=== PATIENT | female | born 1965 | race Caucasian/White ===

== ENCOUNTER 2016-09-20 06:29 | Day surgery (SDC) | payer MEDICARE, OTHER ==
[2016-09-16 18:22] VITALS: BMI 19.7
[2016-09-20 07:06] VITALS: RESP 16; TEMP 96.6
[2016-09-20] MEDS ORDERED: LACTATED RINGERS 1,000 ML IV ONE (07:15)
[2016-09-20] MEDS ORDERED: LIDOCAINE 1% 20 ML VIAL (10MG/ML) FOR IV START SQ ONE (07:24)
[2016-09-20] MEDS ORDERED: fentaNYL (PF) 50 MCG/ML 2 ML AMP ONE (07:40)
[2016-09-20] MEDS ORDERED: BUPIVACAINE (PF) 0.5% 30 ML VIAL ONE (07:40)
[2016-09-20] MEDS ORDERED: DEXAMETHASONE SOD PHOS (MDV) 100 MG/10 ML VIAL ONE (07:40)
[2016-09-20] MEDS ORDERED: MIDAZOLAM 2 MG/2 ML VIAL ONE (07:40)
[2016-09-20] MEDS ORDERED: IV FLUID CONTINUATION 400 ML IV ONE (08:29)
--- NOTE | 2016-09-20 08:35 | FL ---
Fluoroscopy INDICATION: Pain FINDINGS: Fluoroscopy time: 16 seconds. Images obtained: 8. IMPRESSIONS: 1. Documentation of fluoroscopy.
[2016-09-20] MEDS ORDERED: KETOROLAC 30 MG/ML 1 ML VIAL IVP STA (08:58)
[2016-09-20] MEDS ORDERED: KETOROLAC 30 MG/ML 1 ML VIAL IVP ONE (09:00)
[2016-09-20 09:22] VITALS: BP 105/72; PULSE 62
--- NOTE | 2016-09-20 09:29 | P.PCN ---
Date of Procedure: 09/20/16 Anesthesia: MAC Surgeon: Loyd Salazar Pathology: none sent Condition: stable Disposition: PACU Description of Procedure: PREOPERATIVE DIAGNOSIS: Cervical spondylosis without myelopathy, cervicogenic headache. POSTOPERATIVE DIAGNOSIS: same PROCEDURES: Diagnostic bilateral C2, C3, C4 medial branch, and third occipital nerve steroid injection, with fluoroscopic guidance ANESTHESIA: Local with 1% lidocaine; IV sedation with Versed. EBL: Minimal PROCEDURE INDICATION: This is a patient with neck pain and headaches secondary to cervical arthropathy unresponsive to more conservative treatments. PROCEDURE DESCRIPTION / TECHNIQUE: The patient was seen and identified in the preoperative area. Risks, benefits, complications, and alternatives were discussed with the patient (including but not limited to incomplete pain relief , bleeding, infection, nerve damage, and allergies to medications), the patient agreed to proceed with the procedure and signed the consent after all questions were answered. IV was started. Vital signs remained stable throughout the procedure. Patient was taken to the OR and time out was completed. The patient was placed in the prone position on the procedure table. A pillow was placed under the patients chest to increase the cervical interlaminar space. The cervical area was prepped and draped in the usual sterile fashion. Critical pause was taken. Vital signs were closely monitored during the procedure. Conscious sedation was used during the procedure to decrease patients anxiety. Using cross-table lateral fluoroscopy, the centroid of the trapezoid of right C2 , was identified, marked, and localized with 1% lidocaine. Subsequently, a 25 G spinal needle was advanced guided by fluoroscopy to the centroid of the trapezoid of C2. Needle tip position was confirmed at the centroid of the trapezoids of C2 with anteroposterior fluoroscopy. Subsequently, 1 ml of a combination of 40 mg Kenalog and 7 ml of preservative-free Bupivacaine 0.5% was injected after negative aspiration for blood and CSF. Needle was then removed intact the same procedure was repeated at the right C2/C3 facet joint (for third occipital nerve) C3, and C4 levels. COMPLICATIONS: No acute complications. COMMENTS: DISPOSITION / PLANS: The patient was placed in a supine position and transferred to the recovery area in a stable condition for observation and was discharged from the recovery room after meeting discharge criteria. Home discharge instructions given to the patient by the staff. The patient was reexamined prior to discharge. The patient will schedule a follow up in the clinic in 2-4 weeks. As noted at last visit, patient has two new masses on MRI scan from June 2016 and has had worsening weakness in her arms and numbness/tingling. I told her that we will not do any further procedures for her until these masses are evaluated by a neurologist or a neurosurgeon. I gave her a referral to see Dr. Altamirano for evaluation. In addition, patient presented today with pounding headache, "migraine" as described by her. Neck pain significantly improved after procedure (>50% relief ) but patient has frontal headache, rating 10/10 today. Patient seen and examined by myself. This is unlikely to be a postdural puncture headache, as 1 ) it does not worsen or change with position changes, 2) epidural injection was not done today, and 3) cervical medial branch block was done from lateral approach; this is likely an exacerbation of patient's usual underlying headaches. Will give bolus of IV fluids and ketorolac. If patient requires further management of her headaches, I will instruct her to go to the emergency department for further treatment. Patient will follow up in four weeks for further evaluation.
== END 2016-09-20 10:00 | disposition home or self-care (01) ==
LOC: ORPAIN 06:29
PROVIDERS: ATTEND Anesthesiology
DX: M47.812 Spondylosis without myelopathy or radiculopathy, cervical region (principal); R51 Headache; Z91.012 Allergy to eggs; Z91.040 Latex allergy status; Z88.8 Allergy status to other drugs, medicaments and biological substances; Z91.048 Other nonmedicinal substance allergy status; Z91.09 Other allergy status, other than to drugs and biological substances; Z79.891 Long term (current) use of opiate analgesic; Z79.899 Other long term (current) drug therapy
CPT/HCPCS: 64490; 64491; 64492; J2250; J3010; J1885; J1100

== ENCOUNTER → 2016-10-11 | Outpatient (CLI) | payer MEDICARE, OTHER ==
[2016-10-11 12:28] VITALS: BP 123/77; PULSE 90; RESP 18; TEMP 98.5
--- NOTE | 2016-10-11 20:19 | P.PN ---
Subjective This is follow-up visit for this patient with a history of severe and chronic neck pain and headache, with done cervical epidural steroid injection, she had no benefit from it, and later on we didn't do diagnostic medial branch block cervical area C2/C3/C4, x1 and she reported that her pain before the injection was 8/10 dropped to 4/10 after the block, but it did not help her headache, she continued to have severe intractable headache mainly on the right side frontal headache, she denies any visual changes and she denies any change in the bowel movement or urination and she denies any motor or sensory deficit, intensity of the headache is interfering with her quality of life, and the headache is not related to the neck movements, and is currently on pain medications 1- [place] 10/325 every 6 hours when necessary 2-Valium 5 mg twice a day 3-Cymbalta 60 mg daily Patient denies any side effects of the medication, denies excessive drowsiness or sleepiness, denies suicidal ideation, and reports that the current pain medication is NOT helping To control the pain and improve activity of daily living Physical Examinations : 1-Constitutiona : Cooperative , not in acute distress . 2-HEENT : nech ; supple , no Lymphadenopathy , no Thyromegaly , normal thyroid size . eyes : no ptosis , no icterus, no photophobia . ENT : normal of hearing , normal oropharynx , no Thrush . 3- Respiratory : Chest clear to auscultations Bilaterally , no wheezing , no Rhonchi . 4- Cardiovascular : regular rate and rhythem , S1 , S2 , no S3 , no S4. 5- Gastrointestinal : abdomen soft no tenderness , bowel sounds positive all four quadrents , no organomegally . 6- Genitourinary : Defferred . 7- neurologic : Cranial nerve II to XII intact , no focal neurological deffecit . 8-psychatric : alert , oriented X 3 , appropriate affect , intact judgment and insight . 9-Lymphatic : no Lymphadenopathy . 10- musculoskeltal : exams of the cervical spine = motor strength normal bilateral upper extremities facet loading test cervical area positive. Normal sensation in the upper extremities exams of the Lumber spine = motor strength lower extremities ,thigh and legs .5/5 deep tendon reflexes : normal Knee Jerk , normal ankle Jerk . 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, patient had no benefit from the cervical epidural steroid injection, she had 50% Improvement of her neck pain after the diagnostic medial branch block cervical area, patient already scheduled to have another Diagnostic medial branch block cervical , but she had no benefit from the block regarding her headache, and she continued to have Severe frontal headache, continuous headache, I will refer patient to a neurologist for evaluation regarding the headache, and patient already scheduled to have diagnostic medial Branch block cervical area, and if it' s positive then we will do the radiofrequency ablation of the medial branch cervical area , And patient should continue her current pain medication [place] 10/325 every 6 hours when necessary for pain, and she should Continue Cymbalta, and continue Valium 5 mg twice a day, (she is getting prescriptions from Dr Amezquita ) Objective - Vital Signs Vital signs: Vital Signs Temp 98.5 F 10/11/16 12:19 Pulse 90 10/11/16 12:19 Resp 18 10/11/16 12:19 BP 123/77 10/11/16 12:19 Pulse Ox 98 10/11/16 12:19 Intake & Output 10/11/16 10/11/16 10/12/16 06:59 18:59 06:59 Weight 55.338 kg
== END | disposition home or self-care (01) ==
LOC: PNWHC3 12:03
PROVIDERS: ATTEND Specialist
DX: G89.29 Other chronic pain (principal); M47.812 Spondylosis without myelopathy or radiculopathy, cervical region; M50.31 Other cervical disc degeneration, high cervical region; R51 Headache; Z79.891 Long term (current) use of opiate analgesic; Z79.899 Other long term (current) drug therapy
CPT/HCPCS: 99211

== ENCOUNTER 2016-10-28 08:46 | Day surgery (SDC) | payer MEDICARE, OTHER ==
[2016-10-28] MEDS ORDERED: LACTATED RINGERS 1,000 ML IV SCH (09:06)
[2016-10-28 09:16] VITALS: TEMP 98
[2016-10-28] MEDS ORDERED: LIDOCAINE 1% 20 ML VIAL (10MG/ML) FOR IV START INTRADERMA ONE (09:26)
[2016-10-28] MEDS ORDERED: MIDAZOLAM 2 MG/2 ML VIAL ONE (10:02)
[2016-10-28] MEDS ORDERED: fentaNYL (PF) 50 MCG/ML 2 ML AMP ONE (10:02)
[2016-10-28] MEDS ORDERED: TRIAMCINOLONE ACETONIDE 40 MG/ML 1 ML VIAL ONE (10:02)
[2016-10-28] MEDS ORDERED: BUPIVACAINE (PF) 0.5% 30 ML VIAL ONE (10:02)
[2016-10-28] MEDS ORDERED: IV FLUID CONTINUATION 1,000 ML IV ONE (10:34)
--- NOTE | 2016-10-28 10:36 | P.PCN ---
Date of Procedure: 10/28/16 Procedure(s) Performed: PREOPERATIVE DIAGNOSIS: 1-Cervical Spondylosis with Facet Arthropathy.without myelopathy. 2-cervicogenic headache. POSTOPERATIVE DIAGNOSIS: Same as preoperative diagnoses. PROCEDURES: Diagnostic Bilateral C2, C3, C4 medial branch blocks, with fluoroscopic guidance. Diagnostic bilateral cervical occipital nerve block under fluoroscopy guidance ANESTHESIA: Local with 1% lidocaine6 ml ; IV sedation with Versed.2 mg and fentanyl 100 g EBL: Minimal PROCEDURE INDICATION: The patient with neck pain secondary to cervical arthropathy unresponsive to more conservative treatments. PROCEDURE DESCRIPTION / TECHNIQUE: The patient was seen and identified in the preoperative area. Risks, benefits, complications, and alternatives were discussed with the patient, the patient agreed to proceed with the procedure and signed the consent. IV was started. Vital signs remained stable throughout the procedure. Patient was taken to the OR and time out was completed. The patient was placed in the prone position on the procedure table. A pillow was placed under the patients chest to increase the cervical interlaminar space. The cervical area was prepped and draped in the usual sterile fashion. Critical pause was taken. Vital signs were closely monitored during the procedure. Conscious sedation was used during the procedure to decrease patients anxiety. Using cross-table lateral fluoroscopy, the centroid of the trapezoid of right C2 , C3, C4 was identified, marked, and localized with 1% lidocaine 1 ml at each level for skin and Sub Q infiltrations . Subsequently, a 22 G 4 spinal needle was advanced guided by fluoroscopy to the centroid of the trapezoid of RightC2, C3, C4 , [place] tip position was confirmed at the centroid of the trapezoids of Right C2 ,C3 , C4 with anteroposterior fluoroscopy. Subsequently, 1,5 ml of preservative-free Bupivacaine 0.5% mixed with Kenalog 40 mg and half ml of the mixture was injected after negative aspiration for blood and CSF. [place] was then removed intact the same procedure was repeated at the left C2 ,C3, C4 levels. then to do the right third occipital nerve block done by placing a 22-gauge Uchitel medial and the middle of the facet joint that is formed between the C2 and C3 vertebra, on the right side and needle placement confirmed with AP and lateral view then after appropriate needle placement confirmed, Marcaine 0.5% half mL injected after negative aspiration, and there was no paresthesia during the injection , the needle removed and the same procedure was repeated for the left side to do the left third occipital nerve COMPLICATIONS: No acute complications. COMMENTS: DISPOSITION / PLANS: The patient was placed in a supine position and transferred to the recovery area in a stable condition for observation and was discharged from the recovery room after meeting discharge criteria. Home discharge instructions given to the patient by the staff. The patient was reexamined prior to discharge. The patient will schedule a follow up in the clinic in 2-4 weeks.
--- NOTE | 2016-10-28 10:43 | FL ---
EXAMINATION TYPE: FL guided pain mgmt statistic DATE OF EXAM: 10/28/2016 10:32 AM FLUOROSCOPY Fluoroscopy time of 11 seconds was used during bilateral cervical facet blocks. 6 image/s document/s the procedure.
[2016-10-28 10:57] VITALS: BP 108/72; PULSE 61; RESP 18
== END 2016-10-28 11:14 | disposition home or self-care (01) ==
LOC: ORPAIN 08:46
PROVIDERS: ATTEND Specialist
DX: M47.812 Spondylosis without myelopathy or radiculopathy, cervical region (principal); M46.92 Unspecified inflammatory spondylopathy, cervical region; R51 Headache
CPT/HCPCS: 64450; 64490; 64491; 64492; 99152; J2250; J3301; J3010

== ENCOUNTER → 2016-11-21 | Outpatient (CLI) | payer MEDICARE, OTHER ==
--- NOTE | 2016-11-22 11:11 | MM ---
Reason for exam: screening (asymptomatic). Last mammogram was performed 5 years and 6 months ago. History: Family history of premenopausal breast cancer in sister and breast cancer in relative. Implants in both breasts, 2010. Physical Findings: A clinical breast exam by your physician is recommended on an annual basis and results should be correlated with mammographic findings. MG 3D Screen Mammo Imp/Cad Bilateral CC, MLO, and ID view(s) were taken. Prior study comparison: July 22, 2011, right breast ultrasound. April 14, 2010, mammogram, performed at [facility]. The breast tissue is extremely dense which could obscure a lesion on mammography. Stable diffuse bilateral calcifications. Bilateral saline implants. No significant changes when compared with prior studies. ASSESSMENT: Benign, BI-RAD 2 RECOMMENDATION: Routine screening mammogram of both breasts in 1 year.
== END | disposition home or self-care (01) ==
LOC: RADMAMWWP 12:54
PROVIDERS: ATTEND Internal Medicine
DX: Z12.31 Encounter for screening mammogram for malignant neoplasm of breast (principal); Z80.3 Family history of malignant neoplasm of breast
CPT/HCPCS: 77063; G0202

== ENCOUNTER → 2016-11-28 | Outpatient (CLI) | payer MEDICARE, OTHER ==
[2016-11-28 12:46] VITALS: BP 92/58; PULSE 74; RESP 16; TEMP 98.2
--- NOTE | 2016-11-28 13:05 | P.PN ---
Progress Note - Text This is a 51-year-old female with history of neck and lower back pain. The patient had surgery on the neck with posterior cervical fusion in 2004. She still feels pain in her neck and also headache. She had cervical medial branch block for levels C2, C3 and C3 before which gave her 50% of pain relief that lasted for couple of weeks as she stated. She does have tenderness on both sides of her neck but her pain is worse on the left side. The patient uses to 4 pills a day of [place] and she gets that from Dr. Flores. She also has increasing lower back pain. I will schedule the patient to have another the frequency ablation on the left side of her neck L4 medial branches at C2, C3, C4 and third occipital nerve. The procedure was explained to the patient and her questions were answered.
== END ==
LOC: PNWHC3 11:49
PROVIDERS: ATTEND Anesthesiology
DX: M54.5 Low back pain (principal); M54.2 Cervicalgia
CPT/HCPCS: 99211

== ENCOUNTER 2017-01-05 11:28 | Day surgery (SDC) | payer MEDICARE, OTHER ==
[2017-01-04 12:06] VITALS: BMI 19.3
[~2017-01-05 11:28] MED LIST: LACTATED RINGERS 1,000 ML IV SCH
[2017-01-05 11:37] VITALS: TEMP 98.4
[2017-01-05] MEDS ORDERED: LIDOCAINE 1% 20 ML VIAL (10MG/ML) FOR IV START INTRADERMA ONE (11:43)
[2017-01-05] MEDS ORDERED: MIDAZOLAM 2 MG/2 ML VIAL ONE (12:15)
[2017-01-05] MEDS ORDERED: TRIAMCINOLONE ACETONIDE 40 MG/ML 1 ML VIAL ONE (12:15)
[2017-01-05] MEDS ORDERED: BUPIVACAINE (PF) 0.5% 30 ML VIAL ONE (12:15)
[2017-01-05] MEDS ORDERED: fentaNYL (PF) 50 MCG/ML 2 ML AMP ONE (12:15)
--- NOTE | 2017-01-05 12:58 | P.PCN ---
Date of Procedure: 01/05/17 Procedure(s) Performed: PREOPERATIVE DIAGNOSIS: 1-Cervical spondylosis with Facet Arthropathy without myelopathy. 2-cervicogenic headache. POSTOPERATIVE DIAGNOSIS: Same as preoperative diagnosis. PROCEDURES: Radiofrequency thermocoagulation, Left C2 ,C3, C4, medial branch with Fluroscopy [place] Radiofrequency thermal coagulation of the left side third occipital nerve under fluoroscopy guidance ANESTHESIA: Local with 1% lidocaine 4 ml ; IV sedation with fentanyl 100 mcg and Versed. 2 mg EBL: Minimal PROCEDURE INDICATION: The patient with neck pain secondary to cervical arthropathy who had more than 50% relief of her pain with previous diagnostic cervical medial branch block. PROCEDURE DESCRIPTION / TECHNIQUE: The patient was seen and identified in the preoperative area. Risks, benefits, complications, and alternatives were discussed with the patient, the patient agreed to proceed with the procedure and signed the consent. IV was started. Vital signs remained stable throughout the procedure. Patient was taken to the OR and time out was completed. The patient was placed in the prone position on the procedure table. A pillow was placed under the patients chest to increase the cervical interlaminar space. The cervical area was prepped and draped in the usual sterile fashion. Critical pause was taken. Vital signs were closely monitored during the procedure. Conscious sedation was used during the procedure to decrease patients anxiety. Using cross-table lateral fluoroscopy, the centroid of the trapezoid of the left C2 ,C3, C4, were identified, marked, and localized with 1% lidocaine. Subsequently, a 20 guage 50-mm radiofrequency cannula with a 10-mm active tip was advanced guided by fluoroscopy to the centroid of the trapezoid of Left C2 ,C3, C4, . Needle tip position was confirmed at the centroid of the trapezoids of Left C2 , C3, C4, with anteroposterior fluoroscopy. Each site then underwent sensory testing at 50 Hz and 0 to 1 volt and motor testing at 2 Hz and 0 to 3 volt with local stimulation, but no radicular symptoms down the arm. Thereafter the Left C2 , C3, C4, sites underwent radiofrequency thermocoagulation at 80 degrees celsius for 90 seconds after injecting 0.5 ml of PF lidocaine 1%. After thermocoagulation, 1 ml of the block solution containing Kenalog 40 mg and 3 mL of preservative-free normal saline was injected at the Left C2 , C3, C4, levels after negative aspiration of CSF and blood and with no paresthesias. Cannulas were retracted while injecting lidocaine 1% until the needle is out. And after that he did the radiofrequency thermocoagulation for the left third occipital nerve by placing a 20-gauge 50 mm radiofrequency cannula at the junction of the facet joint that is from between the C2 and C3 on the left side , and placement confirmed with AP and lateral view, and after appropriate needle placement confirmed we did the sensory stimulation at 50 Hz and motor stimulation at 3 volts, was negative for any contractions in the upper extremities, was only localized contractions in the multifidus muscles, the radiofrequency done at 80C for 90 seconds, after the radiofrequency done needle removed, cleaned was cleaned and the Band-Aid applied COMPLICATIONS: No acute complications DISPOSITION / PLANS: The patient was placed in a supine position and transferred to the recovery area in a stable condition for observation and was discharged from the recovery room after meeting discharge criteria. Home discharge instructions given to the patient by the staff. The patient was reexamined prior to discharge. The patient will schedule a follow up in the clinic in 2-4 weeks. We will do the radiofrequency on the right side,at the same levels mentioned above.
[2017-01-05] MEDS ORDERED: IV FLUID CONTINUATION 1,000 ML IV ONE (12:59)
[2017-01-05 13:02] VITALS: RESP 18
[2017-01-05 13:18] VITALS: BP 115/68; PULSE 67
--- NOTE | 2017-01-05 13:31 | FL ---
Fluoroscopy HISTORY: Pain 18 seconds fluoroscopy time supplied to the referring clinician. 4 intraoperative C-arm images docum ent the procedure. See dictated report from anesthesia.
== END 2017-01-05 13:30 | disposition home or self-care (01) ==
LOC: ORPAIN 11:28
PROVIDERS: ATTEND Specialist
DX: M47.812 Spondylosis without myelopathy or radiculopathy, cervical region (principal); M46.92 Unspecified inflammatory spondylopathy, cervical region; R51 Headache; Z88.6 Allergy status to analgesic agent; Z88.1 Allergy status to other antibiotic agents; Z91.040 Latex allergy status; Z88.5 Allergy status to narcotic agent; Z91.018 Allergy to other foods; Z91.09 Other allergy status, other than to drugs and biological substances
CPT/HCPCS: 64640; 64633; 64634 ×2; 99152; 99153; J2250; J3301; J3010

== ENCOUNTER → 2017-04-18 | Outpatient (CLI) | payer MEDICARE, OTHER ==
--- NOTE | 2017-04-18 07:59 | US ---
EXAMINATION TYPE: US abdomen limited DATE OF EXAM: 04/18/2017 COMPARISON: 01/08/2016 CLINICAL HISTORY: Rt upper Quad Pain R10.11. RUQ pain and N/V x 1 year EXAM MEASUREMENTS: Liver Length: 19.1 cm Gallbladder Wall: 0.2 cm CBD: 0.4 cm Right Kidney: 11.4 x 4.7 x 5.1 cm Pancreas: wnl Liver: enlarged at 19.1cm, possibly due to presence of More's lobe Gallbladder: wnl Evidence for sonographic Ferreira's sign: yes CBD: wnl Right Kidney: wnl Scanned RUQ inferior to ribs palpable area per patient: appears wnl at this time IMPRESSION: Hepatic More's lobe. No significant abnormality appreciated.
== END | disposition home or self-care (01) ==
LOC: RADUSWWP 07:03
PROVIDERS: ATTEND Family Medicine
DX: R10.11 Right upper quadrant pain (principal); Q44.7 Other congenital malformations of liver
CPT/HCPCS: 76705

== ENCOUNTER 2017-04-25 16:36 | Emergency (ER) | payer MEDICARE, OTHER ==
[2017-04-25 17:07] VITALS: RESP 18
[2017-04-25] MEDS ORDERED: HYDROmorphone 1 MG/ML 1 ML SYRINGE IVP STA (18:21)
[2017-04-25] MEDS ORDERED: SODIUM CHLORIDE 0.9% 1,000 ML IV STA (18:21)
[2017-04-25] MEDS ORDERED: ONDANSETRON 4 MG/2 ML VIAL IVP STA (18:21)
--- NOTE | 2017-04-25 18:32 | ED ---
General Adult HPI - General Chief complaint: Abdominal Pain Stated complaint: Abd Pain Time Seen by Provider: 04/25/17 18:17 Source: patient, family, RN notes reviewed Mode of arrival: wheelchair Limitations: physical limitation - History of Present Illness Initial comments: Patient 51-year-old female who presents emergency room today with a chief complaint of increased right lower quadrant pain that started approximately 2 hours ago. She does admit to pain locally to the right lower quadrant. Denies any radiation. Patient admits to some nausea. She states never had pain similar. States different from kidney stones that she has had in the past. Denies any other complaints. Patient denies any recent fever, chills, shortness of breath, chest pain, back pain, abdominal pain, nausea or vomiting, numbness or tingling, dysuria or hematuria, constipation or diarrhea, headaches or visual changes, or any other complaints. - Related Data Home Medications Medication Instructions Recorded Confirmed Hydrocodone/Acetaminophen [[place] 1 tab PO QID 04/25/14 04/25/17 10-325] traZODone HCL [traZODone] 150 mg PO HS 04/25/14 04/25/17 Diazepam [Valium] 5 mg PO BID PRN 04/25/17 04/25/17 Ergocalciferol (Vitamin D2) 50,000 unit PO MO 04/25/17 04/25/17 [Vitamin D2] Sucralfate [Carafate] 1 gm PO AC-TID 04/25/17 04/25/17 hydrOXYzine HCL [Atarax] 25 mg PO Q6H PRN 04/25/17 04/25/17 Previous Rx's Medication Instructions Recorded Dicyclomine [Bentyl] 20 mg PO QID #20 tablet 04/25/17 Allergies Allergy/AdvReac Type Severity Reaction Status Date / Time adhesive Allergy Rash/Hives Verified 04/25/17 17:07 bacitracin Allergy Rash/Hives Verified 04/25/17 17:07 [From Neosporin ([id number])] bacitracin zinc Allergy Rash/Hives Verified 04/25/17 17:07 [From Neosporin ([id number])] egg Allergy Unknown Verified 04/25/17 17:07 latex Allergy Rash/Hives Verified 04/25/17 17:07 neomycin sulfate Allergy Rash/Hives Verified 04/25/17 17:07 [From Neosporin ([id number])] polymyxin B Allergy Rash/Hives Verified 04/25/17 17:07 [From Neosporin ([id number])] aspirin AdvReac Vomiting Verified 04/25/17 19:15 banana AdvReac Vomiting Verified 04/25/17 17:07 oxycodone HCl [From Percocet] AdvReac Vomiting Verified 04/25/17 17:07 paper tape Allergy Rash/Hives Uncoded 04/25/17 19:15 Review of Systems ROS Statement: Those systems with pertinent positive or pertinent negative responses have been documented in the HPI. ROS Other: All systems not noted in ROS Statement are negative. Past Medical History Past Medical History: Asthma, COPD, Fibromyalgia, Osteoarthritis (OA), Pneumonia , Skin Disorder Additional Past Medical History / Comment(s): HX KIDNEY STONES, ECZEMA, hiatal hernia, chronic constipation, hypoglycemia, History of Any Multi-Drug Resistant Organisms: None Reported Past Surgical History: Back Surgery, Breast Surgery, Section, Hysterectomy, Orthopedic Surgery Additional Past Surgical History / Comment(s): LAMINECTOMY C-5,6,7. LEFT KNEE ARTHROSCOPY. BREAST IMPLANTS. lithotripsy. COLONOSCOPY, EGD. TYSHAWN BREAST BIOPSIES, colonoscopy, oral surgery, MS Past Anesthesia/Blood Transfusion Reactions: Family History of Problems w/ Anesthesia, Motion Sickness, Postoperative Nausea & Vomiting (PONV) Additional Past Anesthesia/Blood Transfusion Reaction / Comment(s): sepitic after colonoscopy- HAD VOMITING OF BILE AFTER COLONOSCOPY. MOTHER HAS MEMORY ISSUES AFTER ANESTHESIA-TEMPORARY. Past Psychological History: Anxiety, Depression Smoking Status: Current every day smoker Past Alcohol Use History: None Reported Past Drug Use History: None Reported - Past Family History Mother Family Medical History: Cancer Sister(s) Family Medical History: Cancer Mother Sister(s) Family Medical History: Cancer General Exam - General Exam Comments Initial Comments: General: The patient is awake and alert, in mild distress. Eye: Pupils are equal, round and reactive to light, extra-ocular movements are intact. No nystagmus. There is normal conjunctiva bilaterally. No signs of icterus. Ears, nose, mouth and throat: There are moist mucous membranes and no oral lesions. Neck: The neck is supple, there is no tenderness or JVD. Cardiovascular: There is a regular rate and rhythm. No murmur, rub or gallop is appreciated. Respiratory: Lungs are clear to auscultation, respirations are non-labored, breath sounds are equal. No wheezes, stridor, rales, or rhonchi. Gastrointestinal: Normal appearance abdomen. Normal bowel sounds. Abdomen soft on palpation. Patient does have tenderness to right lower quadrant. No rebound tenderness. No guarding. No CVA tenderness. Musculoskeletal: Normal ROM, no tenderness. Strength 5/5. Sensation intact. Pulses equal bilaterally 2+. Neurological: A&O x 3. CN II-XII intact, There are no obvious motor or sensory deficits. Coordination appears grossly intact. Speech is normal. Skin: Skin is warm and dry and no rashes or lesions are noted. Psychiatric: Cooperative, appropriate mood & affect, normal judgment. Limitations: physical limitation Course Vital Signs 04/25/17 04/25/17 17:03 20:15 Temperature 98.5 F 98.1 F Pulse Rate 81 70 Respiratory 18 18 Rate Blood Pressure 114/63 99/58 O2 Sat by Pulse 98 99 Oximetry Medical Decision Making - Medical Decision Making Patient reexamined at this time shows no signs of stress is resting comfortably. CT the abdomen and pelvis is negative for any acute abnormalities. Labs are unremarkable. Patient does admit on further history that she is had similar pain back and forth for the last year and has seen family doctor and also GI. States she's had scopes and ultrasounds performed. At this time she is advised to follow-up with the GI. She has had a hysterectomy with right ovary removed. Patient will be discharged home with prescription for Bentyl for her symptoms. - Lab Data Result diagrams: 04/25/17 18:17 04/25/17 18:17 Lab Results 04/25/17 04/25/17 04/25/17 Range/Units 18:17 18:17 18:17 WBC 9.2 (3.8-10.6) k/uL RBC 4.62 (3.80-5.40) m/uL Hgb 14.5 (11.4-16.0) gm/dL Hct 42.1 (34.0-46.0) % MCV 91.2 (80.0-100.0) fL MCH 31.5 (25.0-35.0) pg MCHC 34.5 (31.0-37.0) g/dL RDW 13.3 (11.5-15.5) % Plt Count 321 (150-450) k/uL Neutrophils % 44 % Lymphocytes % 45 % Monocytes % 6 % Eosinophils % 2 % Basophils % 1 % Neutrophils # 4.0 (1.3-7.7) k/uL Lymphocytes # 4.1 (1.0-4.8) k/uL Monocytes # 0.5 (0-1.0) k/uL Eosinophils # 0.2 (0-0.7) k/uL Basophils # 0.1 (0-0.2) k/uL Sodium 142 (137-145) mmol/L Potassium 4.2 (3.5-5.1) mmol/L Chloride 107 (98-107) mmol/L Carbon Dioxide 24 (22-30) mmol/L Anion Gap 11 mmol/L BUN 10 (7-17) mg/dL Creatinine 0.70 (0.52-1.04) mg/dL Est GFR (MDRD) Af Amer >60 (>60 ml/min/1.73 sqM) Est GFR (MDRD) Non-Af >60 (>60 ml/min/1.73 sqM) Glucose 82 (74-99) mg/dL Plasma Lactic Acid Que (0.7-2.0) mmol/L Calcium 9.3 (8.4-10.2) mg/dL Total Bilirubin 0.3 (0.2-1.3) mg/dL AST 17 (14-36) U/L ALT 34 (9-52) U/L Alkaline Phosphatase 111 (38-126) U/L Total Protein 6.6 (6.3-8.2) g/dL Albumin 4.1 (3.5-5.0) g/dL Amylase <30 L (30-110) U/L Lipase 44 (23-300) U/L Urine Color Light Yellow Urine Appearance Clear (Clear) Urine pH 5.5 (5.0-8.0) Ur Specific [place] 1.004 (1.001-1.035) Urine Protein Negative (Negative) Urine Glucose (UA) Negative (Negative) Urine Ketones Negative (Negative) Urine Blood Negative (Negative) Urine Nitrite Negative (Negative) Urine Bilirubin Negative (Negative) Urine Urobilinogen <2.0 (<2.0) mg/dL Ur Leukocyte Esterase Negative (Negative) 04/25/17 Range/Units 18:44 WBC (3.8-10.6) k/uL RBC (3.80-5.40) m/uL Hgb (11.4-16.0) gm/dL Hct (34.0-46.0) % MCV (80.0-100.0) fL MCH (25.0-35.0) pg MCHC (31.0-37.0) g/dL RDW (11.5-15.5) % Plt Count (150-450) k/uL Neutrophils % % Lymphocytes % % Monocytes % % Eosinophils % % Basophils % % Neutrophils # (1.3-7.7) k/uL Lymphocytes # (1.0-4.8) k/uL Monocytes # (0-1.0) k/uL Eosinophils # (0-0.7) k/uL Basophils # (0-0.2) k/uL Sodium (137-145) mmol/L Potassium (3.5-5.1) mmol/L Chloride (98-107) mmol/L Carbon Dioxide (22-30) mmol/L Anion Gap mmol/L BUN (7-17) mg/dL Creatinine (0.52-1.04) mg/dL Est GFR (MDRD) Af Amer (>60 ml/min/1.73 sqM) Est GFR (MDRD) Non-Af (>60 ml/min/1.73 sqM) Glucose (74-99) mg/dL Plasma Lactic Acid Que 0.7 (0.7-2.0) mmol/L Calcium (8.4-10.2) mg/dL Total Bilirubin (0.2-1.3) mg/dL AST (14-36) U/L ALT (9-52) U/L Alkaline Phosphatase (38-126) U/L Total Protein (6.3-8.2) g/dL Albumin (3.5-5.0) g/dL Amylase (30-110) U/L Lipase (23-300) U/L Urine Color Urine Appearance (Clear) Urine pH (5.0-8.0) Ur Specific [place] (1.001-1.035) Urine Protein (Negative) Urine Glucose (UA) (Negative) Urine Ketones (Negative) Urine Blood (Negative) Urine Nitrite (Negative) Urine Bilirubin (Negative) Urine Urobilinogen (<2.0) mg/dL Ur Leukocyte Esterase (Negative) Disposition Clinical Impression: Abdominal pain Disposition: TRANSFER TO PSYCH HOSP/UNIT Condition: Good Instructions: Abdominal Pain (ED) Additional Instructions: Please use medication as discussed. Please follow-up with GI/family doctor in the next 2 days of symptoms have not improved. Please return to emergency room if the symptoms increase or worsen or for any other concerns. Prescriptions: Dicyclomine [Bentyl] 20 mg PO QID #20 tablet Referrals: Christy Baum MD [Primary Care Provider] - 1-2 days Simon Judd MD [STAFF PHYSICIAN] - 1-2 days Time of Disposition: 20:18
[2017-04-25 18:57] LABS: Appearance,Urine Clear (Clear); Basophils # (A) 0.1 k/uL (0-0.2); Basophils % (A) 1 %; Bilirubin,Urine Negative (Negative); CH 30.8; CHCM 33.9; Eosinophils # (A) 0.2 k/uL (0-0.7); Eosinophils % (A) 2 %; Glucose,Urine (UA) Negative (Negative); HCT 42.1 % (34.0-46.0); HDW 2.51; HGB 14.5 gm/dL (11.4-16.0); Ketones,Urine Negative (Negative); Leukocyte Esterase,Urine Negative (Negative); Luc # (Auto) 0.24; Luc % (Auto) 3; Lymphocytes # (A) 4.1 k/uL (1.0-4.8); Lymphocytes % (A) 45 %; MCH 31.5 pg (25.0-35.0); MCHC 34.5 g/dL (31.0-37.0); MCV 91.2 fL (80.0-100.0); Mean Platelet Volume 6.9; Monocytes # (A) 0.5 k/uL (0-1.0); Monocytes % (A) 6 %; Neutrophils % (A) 44 %; Nitrite,Urine Negative (Negative); PH, Urine 5.5 (5.0-8.0); Protein,Urine Negative (Negative); RBC 4.62 m/uL (3.80-5.40); RDW 13.3 % (11.5-15.5); Specific Gravity,Urine 1.004 (1.001-1.035); UA Billing (MACRO vs. MICRO) CHEM; Urobilinogen,Urine <2.0 mg/dL (<2.0); WBC 9.2 k/uL (3.8-10.6); WBC (Perox) 9.46
[2017-04-25] MEDS ORDERED: RX INFO: IV CONTRAST WAS GIVEN 1 EACH MISC MISCELLANE PRN (18:57)
[2017-04-25 19:05] LABS: ALT 34 U/L (9-52); AST 17 U/L (14-36); Alkaline Phosphatase 111 U/L (38-126); Amylase <30 U/L (30-110); Anion Gap 11 mmol/L; Blood Urea Nitrogen 10 mg/dL (7-17); Calcium 9.3 mg/dL (8.4-10.2); Carbon Dioxide 24 mmol/L (22-30); Chloride 107 mmol/L (98-107); Glucose 82 mg/dL (74-99); Non-African American GFR(MDRD) >60 (>60 ml/min/1.73 sqM); Potassium 4.2 mmol/L (3.5-5.1); Sodium 142 mmol/L (137-145); Total Bilirubin 0.3 mg/dL (0.2-1.3); Total Protein 6.6 g/dL (6.3-8.2)
--- NOTE | 2017-04-25 19:11 | XR ---
EXAMINATION TYPE: XR KUB DATE OF EXAM: 04/25/2017 COMPARISON: February 04, 2016 HISTORY: Pain TECHNIQUE: 2 upright views over the abdomen and pelvis FINDINGS: The bowel gas pattern is normal. There is no pneumatosis. No pneumoperitoneum. The skeletal structures and soft tissues are unremarkable. No evident mass or mass effect. The visualized lung bases and pleural spaces are negative. IMPRESSION: NO ACUTE RADIOGRAPHIC PROCESS.
--- NOTE | 2017-04-25 19:59 | CT ---
EXAMINATION TYPE: CT abdomen pelvis w con DATE OF EXAM: 04/25/2017 COMPARISON: CT February 04, 2016 HISTORY: RLQ pain with nausea CT DLP: 776 mGycm. Automated exposure control for dose reduction was used. TECHNIQUE: Helical acquisition of images was performed from the lung bases through the pelvis. CONTRAST: Performed without Oral Contrast and with IV Contrast, patient injected with 100 mL of Omnip aque 300. FINDINGS: LUNG BASES: No significant abnormality is appreciated. LIVER/GB: No significant abnormality is appreciated. PANCREAS: No significant abnormality is seen. SPLEEN: No significant abnormality is seen. ADRENALS: No significant abnormality is seen. KIDNEYS: No significant abnormality is seen. FREE AIR: No free air is visualized. RETROPERITONEAL ADENOPATHY: None visualized REPRODUCTIVE ORGANS: No significant abnormality is seen URINARY BLADDER: No significant abnormality is seen. PELVIC ADENOPATHY: None visualized. OSSEOUS STRUCTURES: No significant abnormality is seen. BOWEL: No significant abnormality is seen. OTHER: Skeletal structures are unremarkable. IMPRESSION: NO ACUTE PROCESS. SPECIFICALLY, NO CT FINDINGS TO CORRELATE WITH THE PATIENT'S SYMPTOMS.
[2017-04-25] MEDS ORDERED: DICYCLOMINE 10 MG/ML 2 ML AMP IM STA (20:17)
[2017-04-25 20:18] VITALS: BP 99/58; PULSE 70; TEMP 98.1
== END 2017-04-25 20:37 ==
LOC: EC 16:36
DX: R10.31 Right lower quadrant pain (principal); R11.0 Nausea; F32.9 Major depressive disorder, single episode, unspecified; F41.9 Anxiety disorder, unspecified; F17.200 Nicotine dependence, unspecified, uncomplicated; Z79.891 Long term (current) use of opiate analgesic; Z79.899 Other long term (current) drug therapy; Z88.1 Allergy status to other antibiotic agents; Z88.5 Allergy status to narcotic agent; Z88.6 Allergy status to analgesic agent; Z91.012 Allergy to eggs; Z91.018 Allergy to other foods; Z91.040 Latex allergy status; Z91.09 Other allergy status, other than to drugs and biological substances; Z90.710 Acquired absence of both cervix and uterus
CPT/HCPCS: 99285; 96374; 96375; 96361 ×2; 96372; 36415; 80053; 82150; 83605; 83690; 85025; 81003; 74000; 74177; J0500; J2405; J1170; Q9967

== ENCOUNTER → 2017-09-19 | Outpatient (CLI) | payer MEDICARE, OTHER ==
--- NOTE | 2017-09-20 09:26 | MR ---
EXAMINATION TYPE: MR brain/cspine wo DATE OF EXAM: 09/19/2017 COMPARISON: Cervical spine 06/21/16 and Brain 07/07/15 HISTORY: 52 year old female headaches, dizzy, weakness, numbness TECHNIQUE: Multiplanar, multisequence images of the brain and brainstem were acquired without IV con trast. Diffusion weighted imaging is performed. Subsequent multiplanar, multisequence images of the cervical spine without contrast. FINDINGS: BRAIN: No evidence for acute infarction, hemorrhage, mass, mass effect, midline shift, herniation, effacemen t of basal cisterns, or extra-axial fluid collection. The ventricles and sulci are age-appropriate. Major intracranial flow voids are intact. T2/FLAIR weighted sequences show stable mild to moderate scattered burden of bright white matter foci primarily in the subcortical and deep white matter, numbering approximately 10 in the left cerebral hemisphere and 6 in the right cerebral hemisphere. 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 Midline structures otherwise demonstrate normal morphology. The cr aniocervical junction is normal. Moderate mucosal thickening ethmoid air cells and left maxillary sinus and mild within the right maxi llary sinus. Globes appear intact. Minimal trapped fluid in the inferior right mastoid air cells. CERVICAL SPINE: The craniocervical junction, predental space widening, or prevertebral soft tissue swelling. Redemonstrated mild multilevel degenerative disc disease characterized by disc desiccation, mild disc space narrowing, and disc osteophyte complex formation, particularly in the mid to lower cervical sp ine from C5 through C7 levels. Corresponding ligamentum flavum thickening at these levels with scattered facet and uncovertebral ld nt arthropathy. Mild heterogeneous marrow signal without suspicious bone marrow replacement. There are redemonstrated round foci of intermediate signal intensity at the left C5-C6 and C6-C7 neur al foramen, unchanged from 06/21/2016. These measure 1.0 and 0.7 cm, respectively, refer to sagittal image 5. Exact etiology remains uncertain. At C2-C3, mild facet arthropathy without canal or foraminal stenosis. At C3-C4, mild facet arthropathy without canal or foraminal stenosis. At C4-C5, minimal broad-based disc osteophyte complex with mild uncovertebral joint and facet degener ative change. No significant canal or foraminal stenosis. At C5-C6, there is disc osteophyte complex with left greater than right facet and uncovertebral joint degenerative change. There is overall minimal narrowing of the spinal canal and mild narrowing of th e right neuroforamen. There may be a moderate or severe left neuroforaminal stenosis, similar to prio r exam with the rounded intermediate signal intensity lesion here. At C6/C7, discussed by complex with contiguous uncovertebral joint spurring. Facet arthropathy is als o present with ligamentum flavum thickening. Overall mild narrowing of the spinal canal. There may be slight ventral cord contact but no flattening of the cord. At least moderate left neuroforaminal zan nosis with redemonstrated round area of intermediate signal. At C7-T1, no spinal canal or neuroforaminal stenosis. Some patchy artifact projects over the lower cervical cord. No abnormal T2 cord signal abnormality wh en correlating to the axial series. No prevertebral or paravertebral soft tissue abnormality seen. COMBINED IMPRESSION: BRAIN: 1. Chronic T2 bright white matter changes as described above. Stable mild to moderate scattered burde n. No acute intracranial abnormality seen. 2. 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 3. Mild to moderate chronic schwartz sinus disease, worsened in the left maxillary sinus. CERVICAL SPINE: 1. The 2 round lesions interposed at the left C5-C6 and C6-C7 neural foramen (measuring 1.0 and 0.7 c m, respectively) remain unchanged from 06/21/2016. Differential considerations include extruded/seque stered disc fragments and small nerve sheath tumors. Hypertrophic polyneuropathy considered less like ly given that only 2 levels on one side are involved. These may contribute to left-sided neural jenelle inal narrowing at their respective levels. 2. Mild to moderate degenerative disc disease especially from C5 through C7 levels contributing to mi nimal to mild narrowing of the spinal canal. No canal compromise or cord compression. 3. Scattered mild facet and uncovertebral joint arthropathy also noted. Aside from the 2 levels on th e left side mentioned above, no significant neuroforaminal stenosis.
== END | disposition home or self-care (01) ==
LOC: RADMRIMAIN 15:04
PROVIDERS: ATTEND Nurse Practitioner Family
DX: M48.02 Spinal stenosis, cervical region (principal); M50.322 Other cervical disc degeneration at C5-C6 level; M46.92 Unspecified inflammatory spondylopathy, cervical region; E34.8 Other specified endocrine disorders; R90.82 White matter disease, unspecified; G43.909 Migraine, unspecified, not intractable, without status migrainosus
CPT/HCPCS: 70551; 72141

== ENCOUNTER → 2017-09-20 | Outpatient (CLI) | payer MEDICARE, OTHER ==
--- NOTE | 2017-09-20 17:53 | MR ---
EXAMINATION TYPE: MR shoulder RT wo con DATE OF EXAM: 09/20/2017 COMPARISON: NONE HISTORY: Right Shoulder pain with limited ROM x2 years TECHNIQUE: Multiplanar, multisequence imaging of the right shoulder is performed without contrast. FINDINGS: Rotator Cuff: Abnormal attenuation of the rotator cuff tendon is present, there is increased signal a t the level of the insertion of the supraspinatus tendon compatible with partial full-thickness tear of the rotator cuff. Acromioclavicular Joint: Hypertrophic changes present causing mass effect on the musculotendinous cynthia ction of supraspinatus. Glenohumeral Joint: Intact Labrum: The labrum shows some increased signal present at its anterior inferior margin, in close prox imity to this there is a cluster of grapes and vermiform type appearance of fluid signal extending in feriorly along the bony labrum measuring approximately 2.2 x 0.5 x 0.6 cm.. Biceps Tendon: The long head of biceps is in normal location within bicipital groove. Bone marrow signal: Small pseudocysts present within the posterior humeral head. Other: There is fluid signal present in the subacromial subdeltoid bursa. IMPRESSION: Findings suggestive of a partial full-thickness tear of the rotator cuff. Correlate for impingement. Para labral cyst is suspected, there may be a tear of the anterior-inferior glenoid labrum
== END | disposition home or self-care (01) ==
LOC: RADMRIMAIN 15:06
PROVIDERS: ATTEND Nurse Practitioner Family
DX: M25.511 Pain in right shoulder (principal)

== ENCOUNTER → 2017-10-31 | Outpatient (CLI) | payer MEDICARE, OTHER ==
--- NOTE | 2017-10-31 17:19 | XR ---
EXAMINATION TYPE: XR cervical spine comp DATE OF EXAM: 10/31/2017 COMPARISON: 12/09/2014 HISTORY: Pain TECHNIQUE: 4 views FINDINGS: Exam was performed with neutral flexion and extension lateral views. There is narrowing of the C5-6 disc space with spurring of the endplates. The flexion and extension v iews show no evidence of instability. There are no cervical ribs. IMPRESSION: Spondylosis at C5-6. No fracture. No evidence of instability. No change compared to old e xam.
--- NOTE | 2017-10-31 17:40 | XR ---
EXAMINATION TYPE: XR lumbar spine with bend/flex DATE OF EXAM: 10/31/2017 COMPARISON: 12/09/2014 HISTORY: Low back pain TECHNIQUE: 5 views FINDINGS: The lumbar vertebra have normal spacing and alignment. Posterior elements are intact. Flexi on and extension views show no sign of instability. Sacroiliac joints appear normal. IMPRESSION: No evidence of instability. No fracture. No change compared to old exam.
== END | disposition home or self-care (01) ==
LOC: RADXRMAIN 16:35
PROVIDERS: ATTEND Nurse Practitioner Family
DX: M47.812 Spondylosis without myelopathy or radiculopathy, cervical region (principal); M47.816 Spondylosis without myelopathy or radiculopathy, lumbar region
CPT/HCPCS: 72050; 72114

== ENCOUNTER → 2018-01-19 | Outpatient (CLI) | payer MEDICARE, OTHER ==
--- NOTE | 2018-01-19 16:10 | CT ---
EXAMINATION TYPE: CT cervical spine wo con DATE OF EXAM: 01/19/2018 COMPARISON: NONE HISTORY: Patient complains of chronic neck pain with radiation to the right arm primarily, with infre quent radiation to the left arm. CT DLP: 179.7 mGycm Automated exposure control for dose reduction was used. TECHNIQUE: CT scan of the cervical spine is obtained without contrast, axial images are obtained, sagittal and c oronal reformatted images are also reviewed. FINDINGS: C5-6 shows loss of disc height, there is spondylosis, lateral extension of endplate disc complex caus ing bilateral foraminal encroachment, some anterolateral mass effect on the thecal sac towards the le ft of midline. No significant spinal stenosis. C3-4 show some loss of disc height with minimal disc b ulge, no significant spinal stenosis. No other significant foraminal encroachment or disc herniation is evident. No other neural foraminal compromise. Cervical spine is visualized in its entirety from C1 through upper thoracic levels, demonstrates sati sfactory alignment without evidence of acute fracture or dislocation. Prevertebral soft tissue appea rs within normal limits. The C1-C2 articulation is within normal limits on the coronal images. IMPRESSION: There is no acute fracture or dislocation evident in the cervical spine. Degenerative disc disease.
== END | disposition home or self-care (01) ==
LOC: RADCTMAIN 15:04
PROVIDERS: ATTEND Neurological Surgery
DX: M50.30 Other cervical disc degeneration, unspecified cervical region (principal)
CPT/HCPCS: 72125

== ENCOUNTER → 2018-12-03 | Outpatient (CLI) | payer MEDICARE, OTHER ==
--- NOTE | 2018-12-05 08:56 | MM ---
Reason for exam: screening (asymptomatic). Last mammogram was performed 2 years ago. History: Patient is postmenopausal. Family history of premenopausal breast cancer in sister and breast cancer in paternal grandmother. Implants in both breasts, 2010. Physical Findings: A clinical breast exam by your physician is recommended on an annual basis and results should be correlated with mammographic findings. MG 3D Screen Mammo Imp/Cad Bilateral CC, MLO, and ID view(s) were taken. Prior study comparison: November 21, 2016, bilateral MG 3d screen mammo imp/cad. June 01, 2011, mammogram, performed at [facility]. The breast tissue is extremely dense which could obscure a lesion on mammography. Retropectoral saline implants. Diffuse bilateral punctate and some heterogeneous calcifications. No significant changes when compared with prior studies. ASSESSMENT: Benign, BI-RAD 2 RECOMMENDATION: Routine screening mammogram of both breasts in 1 year. Patient should continue monthly self breast exams. A negative report should not preclude additional follow up of suspicious palpable abnormalities.
== END | disposition home or self-care (01) ==
LOC: RADMAMWWP 09:40
PROVIDERS: ATTEND Family Medicine
DX: Z12.31 Encounter for screening mammogram for malignant neoplasm of breast (principal)
CPT/HCPCS: 77063; 77067

== ENCOUNTER → 2018-12-25 | Outpatient (CLI) | payer MEDICARE, OTHER ==
--- NOTE | 2018-12-25 09:54 | US ---
EXAMINATION TYPE: US abdomen complete DATE OF EXAM: 12/25/2018 COMPARISON: US & CT CLINICAL HISTORY: R10.9 right lower quadrant abdominal pain. Pt states right lateral ABD pain x 2 mon ths EXAM MEASUREMENTS: Liver Length: 15.8 cm Gallbladder Wall: 0.2 cm CBD: 0.5 cm Spleen: 6.7 cm Right Kidney: 10.1 x 4.3 x 4.6 cm Left Kidney: 9.4 x 5.8 x 4.6 cm Pancreas: wnl Liver: wnl Gallbladder: wnl Evidence for sonographic Ferreira's sign: No CBD: wnl Spleen: Difficult to visualize due to overlying bowel gas Right Kidney: wnl Left Kidney: No evidence of hydro, difficult to visualize due to overlying bowel gas Upper IVC: wnl Abd Aorta: wnl No abnormality visualized to account for pt's symptoms The liver is homogenous. The intrahepatic portion of the IVC and proximal abdominal aorta are within normal limits. There is no evidence of cholelithiasis. Common bile duct is unremarkable. The visu alized portions of the pancreas are homogenous. The spleen is unremarkable. Kidneys are symmetric a nd free of hydronephrosis. No renal lesions are seen. IMPRESSION: No distinct abnormality is appreciated.
== END | disposition home or self-care (01) ==
LOC: RADUSWWP 09:17
PROVIDERS: ATTEND Family Medicine
DX: R10.9 Unspecified abdominal pain (principal)
CPT/HCPCS: 76700

== ENCOUNTER 2018-12-29 16:45 | Emergency (ER) | payer MEDICARE, OTHER ==
[2018-12-29 16:52] VITALS: RESP 16
[2018-12-29] MEDS ORDERED: MORPHINE SULFATE 4 MG/ML SYRINGE IVP STA (17:13)
[2018-12-29] MEDS ORDERED: SODIUM CHLORIDE 0.9% 1,000 ML IV ONE (17:13)
[2018-12-29] MEDS ORDERED: KETOROLAC 30 MG/ML 1 ML VIAL IVP STA (17:13)
[2018-12-29] MEDS ORDERED: ONDANSETRON 4 MG/2 ML VIAL IVP STA (17:14)
--- NOTE | 2018-12-29 17:17 | ED ---
Abdominal Pain HPI - General Chief Complaint: Abdominal Pain Stated Complaint: Female Time Seen by Provider: 12/29/18 17:00 Source: patient, family Mode of arrival: wheelchair Limitations: no limitations - History of Present Illness Initial Comments: Patient is a 53-year-old female presents with the chief complaint of abdominal pain and rectal pain. Patient states it has been going on for 1 day. She states she developed constipation and things that she pushed too hard because her rectal pain. Patient cannot identify any other inciting incidences, there are no aggravating or alleviating factors. The patient says she takes stool softeners and has been having daily bowel movements. - Related Data Home Medications Medication Instructions Recorded Confirmed Hydrocodone/Acetaminophen [[place] 1 tab PO QID 04/25/14 04/25/17 10-325] traZODone HCL [traZODone] 150 mg PO HS 04/25/14 04/25/17 Diazepam [Valium] 5 mg PO BID PRN 04/25/17 04/25/17 Ergocalciferol (Vitamin D2) 50,000 unit PO MO 04/25/17 04/25/17 [Vitamin D2] Sucralfate [Carafate] 1 gm PO AC-TID 04/25/17 04/25/17 hydrOXYzine HCL [Atarax] 25 mg PO Q6H PRN 04/25/17 04/25/17 Previous Rx's Medication Instructions Recorded Dicyclomine [Bentyl] 20 mg PO QID #20 tablet 04/25/17 Hydrocortisone/Pramoxine 1 applic RECTAL TID #1 bottle 12/29/18 [Proctofoam-Hc 1%-1% Foam] Sennosides [Senokot] 8.6 mg PO DAILY #20 tablet 12/29/18 Allergies Allergy/AdvReac Type Severity Reaction Status Date / Time adhesive Allergy Rash/Hives Verified 12/29/18 16:52 bacitracin Allergy Rash/Hives Verified 12/29/18 16:52 [From Neosporin ([id number])] bacitracin zinc Allergy Rash/Hives Verified 12/29/18 16:52 [From Neosporin ([id number])] egg Allergy Unknown Verified 12/29/18 16:52 latex Allergy Rash/Hives Verified 12/29/18 16:52 neomycin sulfate Allergy Rash/Hives Verified 12/29/18 16:52 [From Neosporin ([id number])] polymyxin B Allergy Rash/Hives Verified 12/29/18 16:52 [From Neosporin ([id number])] aspirin AdvReac Vomiting Verified 12/29/18 16:52 banana AdvReac Vomiting Verified 12/29/18 16:52 oxycodone HCl [From Percocet] AdvReac Vomiting Verified 12/29/18 16:52 paper tape Allergy Rash/Hives Uncoded 12/29/18 16:52 Review of Systems ROS Statement: Those systems with pertinent positive or pertinent negative responses have been documented in the HPI. ROS Other: All systems not noted in ROS Statement are negative. Gastrointestinal: Reports: abdominal pain, nausea Past Medical History Past Medical History: Asthma, COPD, Fibromyalgia, Osteoarthritis (OA), Pneumonia, Skin Disorder Additional Past Medical History / Comment(s): HX KIDNEY STONES, ECZEMA, hiatal hernia, chronic constipation, hypoglycemia, History of Any Multi-Drug Resistant Organisms: None Reported Past Surgical History: Back Surgery, Breast Surgery, Section, Hysterectomy, Orthopedic Surgery Additional Past Surgical History / Comment(s): LAMINECTOMY C-5,6,7. LEFT KNEE ARTHROSCOPY. BREAST IMPLANTS. lithotripsy. COLONOSCOPY, EGD. TYSHAWN BREAST BIOPSIES, colonoscopy, oral surgery, MS Past Anesthesia/Blood Transfusion Reactions: Family History of Problems w/ Anesthesia, Motion Sickness, Postoperative Nausea & Vomiting (PONV) Additional Past Anesthesia/Blood Transfusion Reaction / Comment(s): sepitic after colonoscopy- HAD VOMITING OF BILE AFTER COLONOSCOPY. MOTHER HAS MEMORY ISSUES AFTER ANESTHESIA-TEMPORARY. Past Psychological History: Anxiety, Depression Smoking Status: Current every day smoker Past Alcohol Use History: None Reported Past Drug Use History: None Reported - Past Family History Mother Family Medical History: Cancer Sister(s) Family Medical History: Cancer Mother Sister(s) Family Medical History: Cancer General Exam Limitations: no limitations General appearance: alert, in no apparent distress Head exam: Present: atraumatic, normocephalic Eye exam: Present: normal appearance, EOMI Neck exam: Present: normal inspection Respiratory exam: Present: normal lung sounds bilaterally. Absent: respiratory distress, wheezes Cardiovascular Exam: Present: regular rate, normal rhythm GI/Abdominal exam: Present: soft, tenderness (Lower abdominal tenderness). Absent: distended Rectal exam: Present: normal rectal tone, heme (-) stool, hemorrhoids, tenderness. Absent: fecal impaction Extremities exam: Present: normal inspection Back exam: Present: normal inspection, other (Patient is a small midline incision from the C-spine from a laminectomy, appears well-healed) Neurological exam: Present: alert, oriented X3 Psychiatric exam: Present: normal affect, normal mood Skin exam: Present: warm, dry, intact Course Vital Signs 12/29/18 16:48 Temperature 98.2 F Pulse Rate 89 Respiratory 16 Rate Blood Pressure 131/81 O2 Sat by Pulse 98 Oximetry Medical Decision Making - Medical Decision Making Patient presents with a chief complaint of abdominal pain and rectal pain. On initial evaluation, vitals are stable, patient is in [id number] distress secondary to discomfort. Patient to be evaluated basic labs including liver profile and lipase, she'll be sent for a computed tomography scan of the abdomen and pelvis with IV contrast. Rectal exam shows nonthrombosed hemorrhoids, no bleeding, stool is grossly unremarkable. No fecal impaction. 6:54 PM 11 evaluation this patient is unremarkable, urinalysis shows no evidence of infection. Computed tomography scan of the abdomen and pelvis is grossly unremarkable, there is some bladder wall thickening which is new compared to previous examination however given urinalysis, not likely secondary to infection. Reevaluation, patient states that she is feeling somewhat improved. Metastatic she was instructed to continue to use a stool softeners however decrease the use of laxatives. She was prescribed Anusol, instructed to follow up with primary care 1-2 days. Patient was given a referral to gastroenterology given her chronic constipation. Patient was instructed to return to the emergency department for reevaluation if symptoms worsen or change. - Lab Data Result diagrams: 12/29/18 17:25 12/29/18 17:25 Lab Results 12/29/18 12/29/18 12/29/18 Range/Units 17:25 17:25 18:21 WBC 7.2 (3.8-10.6) k/uL RBC 4.18 (3.80-5.40) m/uL Hgb 12.9 (11.4-16.0) gm/dL Hct 38.4 (34.0-46.0) % MCV 91.8 (80.0-100.0) fL MCH 31.0 (25.0-35.0) pg MCHC 33.7 (31.0-37.0) g/dL RDW 14.1 (11.5-15.5) % Plt Count 283 (150-450) k/uL Neutrophils % 45 % Lymphocytes % 44 % Monocytes % 5 % Eosinophils % 3 % Basophils % 1 % Neutrophils # 3.2 (1.3-7.7) k/uL Lymphocytes # 3.2 (1.0-4.8) k/uL Monocytes # 0.4 (0-1.0) k/uL Eosinophils # 0.2 (0-0.7) k/uL Basophils # 0.1 (0-0.2) k/uL Sodium 139 (137-145) mmol/L Potassium 4.1 (3.5-5.1) mmol/L Chloride 109 H (98-107) mmol/L Carbon Dioxide 25 (22-30) mmol/L Anion Gap 5 mmol/L BUN 9 (7-17) mg/dL Creatinine 0.58 (0.52-1.04) mg/dL Est GFR (CKD-EPI)AfAm >90 (>60 ml/min/1.73 sqM) Est GFR (CKD-EPI)NonAf >90 (>60 ml/min/1.73 sqM) Glucose 85 (74-99) mg/dL Calcium 9.1 (8.4-10.2) mg/dL Total Bilirubin 0.3 (0.2-1.3) mg/dL AST 12 L (14-36) U/L ALT 25 (9-52) U/L Alkaline Phosphatase 78 (38-126) U/L Total Protein 6.1 L (6.3-8.2) g/dL Albumin 3.8 (3.5-5.0) g/dL Lipase 33 (23-300) U/L Urine Color Light Yellow Urine Appearance Clear (Clear) Urine pH 6.0 (5.0-8.0) Ur Specific [place] 1.032 (1.001-1.035) Urine Protein Negative (Negative) Urine Glucose (UA) Negative (Negative) Urine Ketones Negative (Negative) Urine Blood Negative (Negative) Urine Nitrite Negative (Negative) Urine Bilirubin Negative (Negative) Urine Urobilinogen <2.0 (<2.0) mg/dL Ur Leukocyte Esterase Negative (Negative) Disposition Clinical Impression: Proctalgia Disposition: HOME SELF-CARE Condition: Good Instructions (If sedation given, give patient instructions): Abdominal Pain (ED), Rectal Pain (ED) Prescriptions: Hydrocortisone/Pramoxine [Proctofoam-Hc 1%-1% Foam] 1 applic RECTAL TID #1 bottle Sennosides [Senokot] 8.6 mg PO DAILY #20 tablet Is patient prescribed a controlled substance at d/c from ED?: No Referrals: Christy Baum MD [Primary Care Provider] - 1-2 days
[2018-12-29 17:34] LABS: Basophils # (A) 0.1 k/uL (0-0.2); Basophils % (A) 1 %; Eosinophils # (A) 0.2 k/uL (0-0.7); Eosinophils % (A) 3 %; HCT 38.4 % (34.0-46.0); HGB 12.9 gm/dL (11.4-16.0); Lymphocytes # (A) 3.2 k/uL (1.0-4.8); Lymphocytes % (A) 44 %; MCHC 33.7 g/dL (31.0-37.0); MCV 91.8 fL (80.0-100.0); Mean Platelet Volume 7.1; Monocytes # (A) 0.4 k/uL (0-1.0); Monocytes % (A) 5 %; Neutrophils # (A) 3.2 k/uL (1.3-7.7); Neutrophils % (A) 45 %; Platelet Count 283 k/uL (150-450); RBC 4.18 m/uL (3.80-5.40); RDW 14.1 % (11.5-15.5); WBC 7.2 k/uL (3.8-10.6)
[2018-12-29 17:45] LABS: ALT 25 U/L (9-52); AST 12 U/L (14-36); Albumin 3.8 g/dL (3.5-5.0); Alkaline Phosphatase 78 U/L (38-126); Anion Gap 5 mmol/L; Blood Urea Nitrogen 9 mg/dL (7-17); Calcium 9.1 mg/dL (8.4-10.2); Carbon Dioxide 25 mmol/L (22-30); Chloride 109 mmol/L (98-107); Glucose 85 mg/dL (74-99); Lipase 33 U/L (23-300); Potassium 4.1 mmol/L (3.5-5.1); Sodium 139 mmol/L (137-145); Total Bilirubin 0.3 mg/dL (0.2-1.3); Total Protein 6.1 g/dL (6.3-8.2)
--- NOTE | 2018-12-29 18:29 | CT ---
EXAMINATION TYPE: CT abdomen pelvis w con DATE OF EXAM: 12/29/2018 COMPARISON: 04/25/2017 HISTORY: Generalized abdominal pain. CT DLP: 499.5 mGycm Automated exposure control for dose reduction was used. TECHNIQUE: Helical acquisition of images was performed from the lung bases through the pelvis. CONTRAST: Performed without Oral Contrast and with IV Contrast, patient injected with 100 mL of Isovue 300. FINDINGS: There is focal atelectasis at the right posterior lung base. There is no pleural effusion. Heart size is normal. There is no pericardial effusion. Stomach appears normal. Liver spleen pancreas appear normal. Bile ducts are not dilated. Gallbladder appears normal. There is no adrenal mass. Kidneys show satisfactory contrast opacification. There is no hydronephrosi s. There is no retroperitoneal adenopathy. There is mild wall thickening of the urinary bladder. There are numerous dose in the pelvis. There is 2.4 cm cyst on the left ovary. There is no mesenteric edema. There is no sign of a bowel obstruction . There is no free air. There is no ascites. There is no inguinal hernia. Appendix is not seen. There is no sign of thickened appendix. There is hysterectomy. Lumbar spine is intact. I see no bony destr uctive process. Bony pelvis is intact. IMPRESSION: THERE IS MILD URINARY BLADDER WALL THICKENING THAT IS A CHANGE COMPARED TO OLD EXAM AND COULD RELATE TO MINIMAL CYSTITIS. LEFT OVARIAN CYST UNCHANGED COMPARED TO OLD EXAM. MINIMAL SCARRING ATELECTASIS R IGHT LUNG BASE NOT SIGNIFICANTLY DIFFERENT THAN OLD EXAM.
[2018-12-29 18:41] LABS: Appearance,Urine Clear (Clear); Bilirubin,Urine Negative (Negative); Blood,Urine Negative (Negative); Color,Urine Light Yellow; Glucose,Urine (UA) Negative (Negative); Ketones,Urine Negative (Negative); Leukocyte Esterase,Urine Negative (Negative); Nitrite,Urine Negative (Negative); Protein,Urine Negative (Negative); Specific Gravity,Urine 1.032 (1.001-1.035); Urobilinogen,Urine <2.0 mg/dL (<2.0)
[2018-12-29 19:16] VITALS: BP 100/68; PULSE 70; TEMP 98
== END 2018-12-29 19:14 | disposition home or self-care (01) ==
LOC: EC 16:45
DX: K64.9 Unspecified hemorrhoids (principal); N32.89 Other specified disorders of bladder; R10.9 Unspecified abdominal pain; K59.00 Constipation, unspecified; F32.9 Major depressive disorder, single episode, unspecified; F41.9 Anxiety disorder, unspecified; F17.200 Nicotine dependence, unspecified, uncomplicated; Z88.1 Allergy status to other antibiotic agents; Z88.5 Allergy status to narcotic agent; Z88.6 Allergy status to analgesic agent; Z91.012 Allergy to eggs; Z91.018 Allergy to other foods; Z91.040 Latex allergy status; Z91.048 Other nonmedicinal substance allergy status; Z79.891 Long term (current) use of opiate analgesic; Z79.899 Other long term (current) drug therapy; Z87.442 Personal history of urinary calculi; Z98.890 Other specified postprocedural states
CPT/HCPCS: 36415; 80053; 83690; 85025; 81003; 74177; 99284; 96374; 96375 ×2; 96361; J2270; J2405; J1885; Q9967

== ENCOUNTER → 2019-01-04 | Outpatient (CLI) | payer MEDICARE, OTHER ==
--- NOTE | 2019-01-05 11:26 | US ---
EXAMINATION TYPE: US transvaginal DATE OF EXAM: 01/04/2019 COMPARISON: CT 12/29/2018 CLINICAL HISTORY: N94.10 Unspecified dyspareunia. Hx left ovarian cyst. Partial hysterectomy, right o vary surgically absent TECHNIQUE: . Transvaginal sonographic images of the pelvis were acquired. Date of LMP: Years ago EXAM MEASUREMENTS: Uterus: Surgically absent Endometrial Stripe: Surgically absent Right Ovary: Surgically absent Left Ovary: Not visualized with certainty 1. Uterus: Surgically absent 2. Endometrium: Surgically absent 3. Right Ovary: Surgically absent 4. Left Ovary: Not visualized with certainty 5. Bilateral Adnexa: Within the left adnexa, there is a cystic area visualized measuring 2.0 cm 6. Posterior cul-de-sac: wnl IMPRESSION: 1. Postoperative changes of the hysterectomy. Right-sided oophorectomy. 2. 2 cm left adnexal cyst. Correlate clinically and consider follow-up study.
== END | disposition home or self-care (01) ==
LOC: RADUSWWP 16:19
PROVIDERS: ATTEND Obstetrics & Gynecology
DX: N85.8 Other specified noninflammatory disorders of uterus (principal); Z90.710 Acquired absence of both cervix and uterus; Z90.721 Acquired absence of ovaries, unilateral
CPT/HCPCS: 76830

== ENCOUNTER 2019-12-25 15:51 | Observation (INO) | payer MEDICARE, OTHER ==
[2019-12-25] MEDS ORDERED: ASPIRIN 81 MG PO STA (16:24)
[2019-12-25] MEDS ORDERED: NITROGLYCERIN OINT 1 INCH/GM PACKET TOPICAL STA (16:24)
[2019-12-25] MEDS ORDERED: LORazepam 2 MG/ML INJ IV STA (16:24)
--- NOTE | 2019-12-25 16:35 | ED ---
General Adult HPI - General Chief complaint: Chest Pain Stated complaint: chest pain Time Seen by Provider: 12/25/19 15:55 Source: patient, RN notes reviewed, old records reviewed Mode of arrival: wheelchair Limitations: no limitations - History of Present Illness Initial comments: This a 54-year-old female presents emergency Department complaining of chest pain for a week. Patient states it's intermittent in nature. Patient states the pressure and left side of her chest. Patient states it lasts about 2 hours typically what yesterday and today it's been lasting for many hours. Patient states today she woke up with it and still exists currently. Patient states she does have a history of anxiety she is quite anxious especially because of diff iculty disease. Patient denies any radiation of the patient patient states she is mildly short of breath per patient denies any diaphoretic episodes. Patient denies any nausea. Patient denies any recent fever chills or cough. Patient denies abdominal pain. Patient states she is mildly lightheaded and sits down this is happened so she never passed out. Patient denies any numbness or weakness. Eyes any swelling in her calf or calf tenderness. patient states deep breathing occasionally makes the pain worse. - Related Data Home Medications Medication Instructions Recorded Confirmed Hydrocodone/Acetaminophen [[place] 1 tab PO QID 04/25/14 04/25/17 10-325] traZODone HCL [traZODone] 150 mg PO HS 04/25/14 04/25/17 Diazepam [Valium] 5 mg PO BID PRN 04/25/17 04/25/17 Ergocalciferol (Vitamin D2) 50,000 unit PO MO 04/25/17 04/25/17 [Vitamin D2] Sucralfate [Carafate] 1 gm PO AC-TID 04/25/17 04/25/17 hydrOXYzine HCL [Atarax] 25 mg PO Q6H PRN 04/25/17 04/25/17 Previous Rx's Medication Instructions Recorded Dicyclomine [Bentyl] 20 mg PO QID #20 tablet 04/25/17 Hydrocortisone/Pramoxine 1 applic RECTAL TID #1 bottle 12/29/18 [Proctofoam-Hc 1%-1% Foam] Sennosides [Senokot] 8.6 mg PO DAILY #20 tablet 12/29/18 Allergies Allergy/AdvReac Type Severity Reaction Status Date / Time adhesive Allergy Rash/Hives Verified 12/29/18 16:52 bacitracin Allergy Rash/Hives Verified 12/29/18 16:52 [From Neosporin ([id number])] bacitracin zinc Allergy Rash/Hives Verified 12/29/18 16:52 [From Neosporin ([id number])] egg Allergy Unknown Verified 12/29/18 16:52 latex Allergy Rash/Hives Verified 12/29/18 16:52 neomycin sulfate Allergy Rash/Hives Verified 12/29/18 16:52 [From Neosporin ([id number])] polymyxin B Allergy Rash/Hives Verified 12/29/18 16:52 [From Neosporin ([id number])] aspirin AdvReac Vomiting Verified 12/29/18 16:52 banana AdvReac Vomiting Verified 12/29/18 16:52 oxycodone HCl [From Percocet] AdvReac Vomiting Verified 12/29/18 16:52 paper tape Allergy Rash/Hives Uncoded 12/29/18 16:52 Review of Systems ROS Statement: Those systems with pertinent positive or pertinent negative responses have been documented in the HPI. ROS Other: All systems not noted in ROS Statement are negative. Past Medical History Past Medical History: Asthma, COPD, Fibromyalgia, Osteoarthritis (OA), Pneumonia, Skin Disorder Additional Past Medical History / Comment(s): HX KIDNEY STONES, ECZEMA, hiatal hernia, chronic constipation, hypoglycemia, History of Any Multi-Drug Resistant Organisms: None Reported Past Surgical History: Back Surgery, Breast Surgery, Section, Hysterectomy, Orthopedic Surgery Additional Past Surgical History / Comment(s): LAMINECTOMY C-5,6,7. LEFT KNEE ARTHROSCOPY. BREAST IMPLANTS. lithotripsy. COLONOSCOPY, EGD. TYSHAWN BREAST BIOPSIES, colonoscopy, oral surgery, MS Past Anesthesia/Blood Transfusion Reactions: Family History of Problems w/ Anesthesia, Motion Sickness, Postoperative Nausea & Vomiting (PONV) Additional Past Anesthesia/Blood Transfusion Reaction / Comment(s): sepitic aft er colonoscopy- HAD VOMITING OF BILE AFTER COLONOSCOPY. MOTHER HAS MEMORY ISSUES AFTER ANESTHESIA-TEMPORARY. Past Psychological History: Anxiety, Depression Smoking Status: Former smoker Past Alcohol Use History: None Reported Past Drug Use History: None Reported - Past Family History Mother Family Medical History: Cancer Sister(s) Family Medical History: Cancer Mother Sister(s) Family Medical History: Cancer General Exam - General Exam Comments Initial Comments: GENERAL: Patient is well-developed and well-nourished. Patient is nontoxic and well- hydrated and is in mild distress. ENT: Neck is soft and supple. No significant lymphadenopathy is noted. Oropharynx is clear. Moist mucous membranes. Neck has full range of motion without eliciting any pain. EYES: The sclera were anicteric and conjunctiva were pink and moist. Extraocular movements were intact and pupils were equal round and reactive to light. Eyelids were unremarkable. PULMONARY: Unlabored respirations. Good breath sounds bilaterally. No audible rales rhonchi or wheezing was noted. CARDIOVASCULAR: There is a regular rate and rhythm without any murmurs gallops or rubs. ABDOMEN: Soft and nontender with normal bowel sounds. SKIN: Skin is clear with no lesions or rashes and otherwise unremarkable. NEUROLOGIC: Patient is alert and oriented x3. Cranial nerves II through XII are grossly intact. Motor and sensory are also intact. Normal speech, volume and content. Symmetrical smile. MUSCULOSKELETAL: Normal extremities with adequate strength and full range of motion. No lower extremity swelling or edema. No calf tenderness. LYMPHATICS: No significant lymphadenopathy is noted PSYCHIATRIC: Patient is moderately anxious and tearful anytime she starts describing her symptoms and when she states she's very fearful of catching the cold while she is in the hospital. Limitations: no limitations Course Vital Signs 12/25/19 12/25/19 12/25/19 15:52 16:46 18:08 Temperature 97.3 F L Pulse Rate 80 70 78 Respiratory 18 18 18 Rate Blood Pressure 102/70 112/75 86/55 O2 Sat by Pulse 98 98 99 Oximetry Medical Decision Making - Medical Decision Making EKG shows normal sinus rhythm at 64 bpm MS interval 288 QRSs 84 QT interval 396 QTC is 408. Patient's EKG shows no ST segment elevation or depression or T-wave abdomen is noted. Chest x-ray shows no acute normalities. I went back and reexamined the patient she continued to have chest pain but was much improved from before. I spoke with Dr. Daly's mid-level and she accepted the [facility] - Lab Data Result diagrams: 12/25/19 16:41 12/25/19 16:41 Lab Results 12/25/19 12/25/19 12/25/19 Range/Units 16:41 16:41 16:41 WBC 4.9 (3.8-10.6) k/uL RBC 4.48 (3.80-5.40) m/uL Hgb 13.3 (11.4-16.0) gm/dL Hct 40.7 (34.0-46.0) % MCV 90.8 (80.0-100.0) fL MCH 29.6 (25.0-35.0) pg MCHC 32.7 (31.0-37.0) g/dL RDW 13.0 (11.5-15.5) % Plt Count 238 (150-450) k/uL Neutrophils % 38 % Lymphocytes % 51 % Monocytes % 6 % Eosinophils % 3 % Basophils % 1 % Neutrophils # 1.8 (1.3-7.7) k/uL Lymphocytes # 2.5 (1.0-4.8) k/uL Monocytes # 0.3 (0-1.0) k/uL Eosinophils # 0.1 (0-0.7) k/uL Basophils # 0.1 (0-0.2) k/uL PT 10.5 (9.0-12.0) sec INR 1.0 (<1.2) APTT 24.1 (22.0-30.0) sec D-Dimer 0.21 (<0.60) mg/L FEU Sodium 135 L (137-145) mmol/L Potassium 4.1 (3.5-5.1) mmol/L Chloride 105 (98-107) mmol/L Carbon Dioxide 27 (22-30) mmol/L Anion Gap 3 mmol/L BUN 13 (7-17) mg/dL Creatinine 0.68 (0.52-1.04) mg/dL Est GFR (CKD-EPI)AfAm >90 (>60 ml/min/1.73 sqM) Est GFR (CKD-EPI)NonAf >90 (>60 ml/min/1.73 sqM) Glucose 82 (74-99) mg/dL Calcium 9.4 (8.4-10.2) mg/dL Magnesium 2.1 (1.6-2.3) mg/dL Total Bilirubin 0.3 (0.2-1.3) mg/dL AST 18 (14-36) U/L ALT 11 (4-34) U/L Alkaline Phosphatase 72 (38-126) U/L Troponin I (0.000-0.034) ng/mL Total Protein 6.7 (6.3-8.2) g/dL Albumin 4.1 (3.5-5.0) g/dL 12/25/19 Range/Units 16:41 WBC (3.8-10.6) k/uL RBC (3.80-5.40) m/uL Hgb (11.4-16.0) gm/dL Hct (34.0-46.0) % MCV (80.0-100.0) fL MCH (25.0-35.0) pg MCHC (31.0-37.0) g/dL RDW (11.5-15.5) % Plt Count (150-450) k/uL Neutrophils % % Lymphocytes % % Monocytes % % Eosinophils % % Basophils % % Neutrophils # (1.3-7.7) k/uL Lymphocytes # (1.0-4.8) k/uL Monocytes # (0-1.0) k/uL Eosinophils # (0-0.7) k/uL Basophils # (0-0.2) k/uL PT (9.0-12.0) sec INR (<1.2) APTT (22.0-30.0) sec D-Dimer (<0.60) mg/L FEU Sodium (137-145) mmol/L Potassium (3.5-5.1) mmol/L Chloride (98-107) mmol/L Carbon Dioxide (22-30) mmol/L Anion Gap mmol/L BUN (7-17) mg/dL Creatinine (0.52-1.04) mg/dL Est GFR (CKD-EPI)AfAm (>60 ml/min/1.73 sqM) Est GFR (CKD-EPI)NonAf (>60 ml/min/1.73 sqM) Glucose (74-99) mg/dL Calcium (8.4-10.2) mg/dL Magnesium (1.6-2.3) mg/dL Total Bilirubin (0.2-1.3) mg/dL AST (14-36) U/L ALT (4-34) U/L Alkaline Phosphatase (38-126) U/L Troponin I <0.012 (0.000-0.034) ng/mL Total Protein (6.3-8.2) g/dL Albumin (3.5-5.0) g/dL Disposition Clinical Impression: Chest pain Disposition: ADMITTED IP TO THIS HOSP Referrals: Christy Baum MD [Primary Care Provider] - 1-2 days Time of Disposition: 18:13
[2019-12-25 16:54] LABS: Basophils # (A) 0.1 k/uL (0-0.2); Basophils % (A) 1 %; Eosinophils # (A) 0.1 k/uL (0-0.7); Eosinophils % (A) 3 %; HCT 40.7 % (34.0-46.0); HGB 13.3 gm/dL (11.4-16.0); Lymphocytes # (A) 2.5 k/uL (1.0-4.8); Lymphocytes % (A) 51 %; MCH 29.6 pg (25.0-35.0); MCHC 32.7 g/dL (31.0-37.0); MCV 90.8 fL (80.0-100.0); Mean Platelet Volume 6.7; Monocytes # (A) 0.3 k/uL (0-1.0); Monocytes % (A) 6 %; Neutrophils # (A) 1.8 k/uL (1.3-7.7); Neutrophils % (A) 38 %; Platelet Count 238 k/uL (150-450); RBC 4.48 m/uL (3.80-5.40); WBC 4.9 k/uL (3.8-10.6)
[2019-12-25 17:09] LABS: ALT 11 U/L (4-34); AST 18 U/L (14-36); African American GFR (CKD) >90 (>60 ml/min/1.73 sqM); Albumin 4.1 g/dL (3.5-5.0); Alkaline Phosphatase 72 U/L (38-126); Anion Gap 3 mmol/L; Blood Urea Nitrogen 13 mg/dL (7-17); Calcium 9.4 mg/dL (8.4-10.2); Carbon Dioxide 27 mmol/L (22-30); Chloride 105 mmol/L (98-107); Glucose 82 mg/dL (74-99); Magnesium 2.1 mg/dL (1.6-2.3); Non-African American GFR(CKD) >90 (>60 ml/min/1.73 sqM); Potassium 4.1 mmol/L (3.5-5.1); Sodium 135 mmol/L (137-145); Total Bilirubin 0.3 mg/dL (0.2-1.3); Total Protein 6.7 g/dL (6.3-8.2)
--- NOTE | 2019-12-25 17:13 | XR ---
EXAMINATION TYPE: XR chest 2V DATE OF EXAM: 12/25/2019 COMPARISON: February 04, 2016 HISTORY: Shortness of breath TECHNIQUE: Frontal and lateral views of the chest are obtained. FINDINGS: Scattered senescent parenchymal changes noted. Hyperinflation compatible with COPD. No evidence for infiltrate. No evidence for atelectasis. Heart size is stable. Mediastinal structures are stable and grossly unremarkable. No evidence for hilar prominence. Degenerative changes dorsal spine. IMPRESSION: 1. No evidence for acute pulmonary disease.
[2019-12-25 17:14] LABS: D-Dimer 0.21 mg/L FEU (<0.60); Partial Thromboplastin Time 24.1 sec (22.0-30.0); Prothrombin Time 10.5 sec (9.0-12.0)
[2019-12-25] MEDS ORDERED: SODIUM CHLORIDE 0.9% 1,000 ML IV ONE (18:11)
[2019-12-25] MEDS ORDERED: NITROGLYCERIN SL TABS 0.4 MG TAB SUBLINGUAL PRN (18:14)
[2019-12-26 04:48] VITALS: RESP 16
[2019-12-26 06:45] LABS: Cholesterol 128 mg/dL (<200); HDL Cholesterol 40 mg/dL (40-60); LDL Cholesterol,Calculated 73 mg/dL (0-99); Triglycerides 74 mg/dL (<150)
[2019-12-26] MEDS: NITROGLYCERIN OINT 1 INCH/GM PACKET TOPICAL SCH ×2 (07:35)
[2019-12-26] MEDS ORDERED: ASPIRIN 325 MG TAB PO SCH (09:00)
[2019-12-26] MEDS ORDERED: DOBUTamine DRIP for NUC MED 500 MG in DEXTROSE/WATER 1 250ML.BAG IV ONE (09:07)
--- NOTE | 2019-12-26 09:07 | P.CRDCN ---
History of Present Illness Consult date: 12/26/19 Consult reason: chest pain Chief complaint: Chest pain History of present illness: This is a pleasant 54-year-old female with documented history of asthma, COPD, fibromyalgia, anxiety and depression, prior history of smoking, she states that she quit smoking this past summer. Family history of premature coronary artery disease. Presented to the hospital with symptoms of sharp chest pains which have been somewhat constant for the past couple of days. She states that the pain does not change with deep breathing or at least she doesn't notice if it does, she does have shortness of breath which according to her is normal for her. She complains also of having a significant headache and states that she has history of migraine headaches. According to the patient, the pain as quite sharp in nature and she states when she presses on that area that seems to alleviate the pain for a brief period of time. Her EKG on presentation here showed a normal sinus rhythm with no acute changes. Chest x-ray did not reveal any evidence of acute pulmonary disease. White blood cell count 4.9, hemoglobin 13.3, platelet count 238. D-dimer 0.2. Sodium 135, potassium 4.1, BUN 13, creatinine 0.6. Troponins are negative 3 dean virus, none detected. Blood pressure 94/60 with a heart rate in the 60s. At the time of my examination this morning, patient is complaining of pain in her chest, located in the left lateral area beneath her breast, significantly worse this morning with deep breathing, she states she gets some alleviation of the pain when applying pressure to that area. She also complains of severe headache this morning. Past Medical History Past Medical History: Asthma, COPD, Fibromyalgia, Osteoarthritis (OA), Pneumonia, Skin Disorder Additional Past Medical History / Comment(s): HX KIDNEY STONES, ECZEMA, hiatal hernia, chronic constipation, hypoglycemia, History of Any Multi-Drug Resistant Organisms: None Reported Past Surgical History: Back Surgery, Breast Surgery, Section, Hysterectomy, Orthopedic Surgery Additional Past Surgical History / Comment(s): LAMINECTOMY C-5,6,7. LEFT KNEE ARTHROSCOPY. BREAST IMPLANTS. lithotripsy. COLONOSCOPY, EGD. TYSHAWN BREAST BIOPSIES, colonoscopy, oral surgery, MS Past Anesthesia/Blood Transfusion Reactions: Family History of Problems w/ Anesthesia, Motion Sickness, Postoperative Nausea & Vomiting (PONV) Additional Past Anesthesia/Blood Transfusion Reaction / Comment(s): sepitic after colonoscopy- HAD VOMITING OF BILE AFTER COLONOSCOPY. MOTHER HAS MEMORY ISSUES AFTER ANESTHESIA-TEMPORARY. Past Psychological History: Anxiety, Depression Additional Psychological History / Comment(s): PAST PANIC ATTACKS. Smoking Status: Former smoker Past Alcohol Use History: None Reported Additional Past Alcohol Use History / Comment(s): SMOKED FOR 30 YRS, 1/2 PPD. Past Drug Use History: None Reported Additional Drug Use History / Comment(s): OCC USE - Past Family History Mother Family Medical History: Cancer Additional Family Medical History / Comment(s): Mother had stents. Maternal grandfather: pancreatic cancer Sister(s) Family Medical History: Cancer Mother Sister(s) Family Medical History: Cancer Father Family Medical History: Coronary Artery Disease (CAD) Additional Family Medical History / Comment(s): 2 heart attacks. from second heart attack Medications and Allergies Home Medications Medication Instructions Recorded Confirmed Type Hydrocodone/Acetaminophen [[place] 1 tab PO QID PRN 04/25/14 12/25/19 History 10-325] traZODone HCL [traZODone] 150 mg PO HS 04/25/14 12/25/19 History Ergocalciferol (Vitamin D2) 50,000 unit PO MO 04/25/17 12/25/19 History [Vitamin D2] Cyclobenzaprine [Flexeril] 5 mg PO HS 12/25/19 12/25/19 History Linaclotide [Linzess] 290 mcg PO PC-BRKFST 12/25/19 12/25/19 History Allergies Allergy/AdvReac Type Severity Reaction Status Date / Time adhesive Allergy Rash/Hives Verified 12/25/19 18:58 bacitracin Allergy Rash/Hives Verified 12/25/19 18:58 [From Neosporin ([id number])] bacitracin zinc Allergy Rash/Hives Verified 12/25/19 18:58 [From Neosporin ([id number])] egg Allergy Unknown Verified 12/25/19 18:58 latex Allergy Rash/Hives Verified 12/25/19 18:58 neomycin sulfate Allergy Rash/Hives Verified 12/25/19 18:58 [From Neosporin ([id number])] polymyxin B Allergy Rash/Hives Verified 12/25/19 18:58 [From Neosporin ([id number])] aspirin AdvReac Vomiting Verified 12/25/19 18:58 banana AdvReac Vomiting Verified 12/25/19 18:58 oxycodone HCl [From Percocet] AdvReac Vomiting Verified 12/25/19 18:58 paper tape Allergy Rash/Hives Uncoded 12/25/19 18:58 Physical Exam Vitals: Vital Signs Temp Pulse Pulse Resp BP BP Pulse Ox 12/26/19 08:00 98.5 F 69 94/58 12/26/19 04:00 97.7 F 59 L 16 99/56 99 12/26/19 00:00 98.2 F 62 12 109/60 12/25/19 22:03 98.5 F 68 12 91/52 12/25/19 19:45 97.3 F L 78 18 92/66 99 12/25/19 19:04 92/66 12/25/19 18:50 88/60 12/25/19 18:08 78 18 86/55 99 12/25/19 16:46 70 18 112/75 98 12/25/19 15:52 97.3 F L 80 18 102/70 98 Intake and Output 12/25/19 12/26/19 12/26/19 22:59 06:59 14:59 Other: # Voids 1 Weight 54.431 kg 53.1 kg PHYSICAL EXAMINATION: GENERAL: 54-year-old female in no acute distress at the time of my examination HEENT: Head is atraumatic, normocephalic. Pupils equal, round. Sclera anicteric. Conjunctiva are clear. Mucous membranes of the mouth are moist. Neck is supple. There is no elevated jugular venous pressure. No carotid bruit is heard. HEART EXAMINATION: Heart S1, S2 normal. No murmur or gallop heard. CHEST EXAMINATION: Lungs are clear to auscultation and precussion. Positive chest wall tenderness is noted on palpation and with deep breathing. ABDOMEN: Soft, nontender. Bowel sounds are heard. No organomegaly noted. EXTREMITIES: 2+ peripheral pulses with no evidence of peripheral edema and no calf tenderness noted. NEUROLOGIC patient is awake, alert and oriented 3 . . Results 12/25/19 16:41 12/25/19 16:41 Cardiac Enzymes 12/25/19 12/25/19 12/25/19 Range/Units 16:41 16:41 23:01 AST 18 (14-36) U/L Troponin I <0.012 <0.012 (0.000-0.034) ng/mL 12/26/19 Range/Units 05:13 AST (14-36) U/L Troponin I <0.012 (0.000-0.034) ng/mL Coagulation 12/25/19 Range/Units 16:41 PT 10.5 (9.0-12.0) sec APTT 24.1 (22.0-30.0) sec Lipids 12/26/19 Range/Units 05:13 Triglycerides 74 (<150) mg/dL Cholesterol 128 (<200) mg/dL HDL Cholesterol 40 (40-60) mg/dL CBC 12/25/19 Range/Units 16:41 WBC 4.9 (3.8-10.6) k/uL RBC 4.48 (3.80-5.40) m/uL Hgb 13.3 (11.4-16.0) gm/dL Hct 40.7 (34.0-46.0) % Plt Count 238 (150-450) k/uL Comprehensive Metabolic Panel 12/25/19 Range/Units 16:41 Sodium 135 L (137-145) mmol/L Potassium 4.1 (3.5-5.1) mmol/L Chloride 105 (98-107) mmol/L Carbon Dioxide 27 (22-30) mmol/L BUN 13 (7-17) mg/dL Creatinine 0.68 (0.52-1.04) mg/dL Glucose 82 (74-99) mg/dL Calcium 9.4 (8.4-10.2) mg/dL AST 18 (14-36) U/L ALT 11 (4-34) U/L Alkaline Phosphatase 72 (38-126) U/L Total Protein 6.7 (6.3-8.2) g/dL Albumin 4.1 (3.5-5.0) g/dL Current Medications Generic Name Dose Route Start Last Admin Trade Name Freq PRN Reason Stop Dose Admin Aspirin 325 mg 12/26/19 09:00 12/26/19 08:07 Aspirin PO 325 mg DAILY RUTH Administration Nitroglycerin 0.4 mg 12/25/19 18:14 Nitrostat SUBLINGUAL Q5M PRN Chest Pain Nitroglycerin 1 inch 12/26/19 00:00 12/26/19 07:35 Nitro-Bid Oint TOPICAL Not Given Q6HR RUTH Intake and Output 12/25/19 12/26/19 12/26/19 22:59 06:59 14:59 Other: # Voids 1 Weight 54.431 kg 53.1 kg 12/25/19 16:41 12/25/19 16:41 EKG Interpretations (text) EKG shows a normal sinus rhythm with no acute changes. Assessment and Plan Plan: Assessment and plan #1 chest pain, atypical for acute coronary syndrome. Troponins negative 3. EKG shows normal sinus rhythm with no acute changes. #2 asthma #3 COPD #4 fibromyalgia #5 anxiety and depression #6 prior history of smoking, quit last summer #7 Family history of premature coronary artery disease Plan We will obtain an echocardiogram with Doppler study. Patient has also been recommended to undergo dobutamine echocardiographic study. If both of these tests are negative, from cardiology's perspective the patient may be discharged home today. Further recommendations will be based on these findings and the patient's clinical course. DNP note has been reviewed, I agree with a documented findings and plan of care. Patient was seen and examined.
[2019-12-26 10:03] VITALS: BMI 18.8
[2019-12-26] MEDS ORDERED: ATROPINE SULFATE 0.1 MG/ML 10ML SYRINGE ONE (10:55)
--- NOTE | 2019-12-26 11:18 | ECHOF ---
Referral Reason:chest pain MEASUREMENTS -------- HEIGHT: 167.6 cm WEIGHT: 53.1 kg BP: 94/58 RVIDd: 3.7 cm (< 3.3) IVSd: 1.0 cm (0.6 - 1.1) LVIDd: 3.7 cm (3.9 - 5.3) LVPWd: 1.3 cm (0.6 - 1.1) IVSs: 1.4 cm LVIDs: 2.7 cm LVPWs: 1.3 cm LAESV Index (A-L): 11.20 ml/m Ao Diam: 3.4 cm (2.0 - 3.7) AV Cusp: 2.0 cm (1.5 - 2.6) MV EXCURSION: 15.098 mm (> 18.000) MV EF SLOPE: 63 mm/s (70 - 150) EPSS: 0.5 cm MV E [place]: 0.82 m/s MV DecT: 228 ms MV A [place]: 0.65 m/s MV E/A Ratio: 1.26 RAP: 20.00 mmHg RVSP: 39.09 mmHg FINDINGS -------- Sinus rhythm. This was a technically adequate study. The left ventricular size is normal. Left ventricular wall thickness is normal. Overall left vent ricular systolic function is normal with, an EF between 55 - 60 %. The diastolic filling pattern is normal for the age of the patient 8.99. The right ventricle is mildly enlarged. Normal LA size by volume 22+/-6 ml/m2. The right atrium is mildly enlarged. Prominent Chiari network seen in right atrium (normal finding) . Interatrial and interventricular septum intact. There is mild aortic valve sclerosis. There is no evidence of aortic regurgitation. There is no e vidence of aortic stenosis. Mild mitral regurgitation is present. Mild tricuspid regurgitation present. There is mild pulmonary hypertension. The right ventricular systolic pressure, as measured by Doppler, is 39.09mmHg. There is no pulmonic regurgitation present. The aortic root and ascending aorta are dilated measuring up to (enter manually) mm. The inferior vena cava is dilated with poor inspiratory collapse which is consistent with estimated r ight atrial pressure of 20 mmHg. There is no pericardial effusion. CONCLUSIONS -------- 1. Sinus rhythm. 2. This was a technically adequate study. 3. The left ventricular size is normal. 4. Left ventricular wall thickness is normal. 5. Overall left ventricular systolic function is normal with, an EF between 55 - 60 %. 6. The diastolic filling pattern is normal for the age of the patient 8.99 7. The right ventricle is mildly enlarged. 8. Normal LA size by volume 22+/-6 ml/m2. 9. The right atrium is mildly enlarged. 10. Prominent Chiari network seen in right atrium (normal finding). 11. Interatrial and interventricular septum intact. 12. There is mild aortic valve sclerosis. 13. There is no evidence of aortic regurgitation. 14. There is no evidence of aortic stenosis. 15. Mild mitral regurgitation is present. 16. Mild tricuspid regurgitation present. 17. There is mild pulmonary hypertension. 18. The right ventricular systolic pressure, as measured by Doppler, is 39.09mmHg. 19. There is no pulmonic regurgitation present. 20. The aortic root and ascending aorta are dilated measuring up to34 mm. 21. The inferior vena cava is dilated with poor inspiratory collapse which is consistent with estimat ed right atrial pressure of 20 mmHg. 22. There is no pericardial effusion. HANDBOOK WRITER: Caitlin Melton RDCS
[2019-12-26] MEDS: HEPARIN SODIUM,PORCINE 5,000 UNIT/ML 1 ML VIAL SQ SCH ×2 (11:57→20:23)
--- NOTE | 2019-12-26 12:33 | ECHOS ---
STRESS ECHOCARDIOGRAM INDICATIONS: Chest pain. MEDICATIONS: BASELINE HEART RATE: 56 BASELINE BLOOD PRESSURE: 119/71 MAXIMUM HEART RATE: 144 MAXIMUM BLOOD PRESSURE: 145/69 85% MPHR: 141 100% MPHR: 161 METS: MAXIMUM STAGE REACHED: 40 Mcg/Kg/min TOTAL EXERCISE TIME: CLINICAL INFORMATION: Baseline EKG shows sinus rhythm, normal axis, normal intervals. No ST-T wave changes. Patient was given IV dobutamine over a period of 15 minutes. Patient also received 0.5 mg of atropine, obtained 89% of predicted maximal heart rate without chest pain or diagnostic ST-segment depression. The patient had frequent PVCs with dobutamine infusion. There was no significant ST-segment depression noted. Baseline echo shows normal left ventricular size, wall motion and systolic function. Post dobutamine infusion, there is normal hyperdynamic response of myocardium noted. CONCLUSION: 1. Negative stress test by EKG criteria. 2. Negative dobutamine echo. MMODL / IJN: [id number] /
[2019-12-26] MEDS ORDERED: DEXTROSE 5%-0.9% NACL 1,000 ML IV SCH (12:45)
[2019-12-26] MEDS ORDERED: POLYETHYLENE GLYCOL 3350 17 GM POWD.PACK PO PRN (12:48)
--- NOTE | 2019-12-26 12:50 | P.HPIM ---
History of Present Illness This is a pleasant 54 years old female with past medical history of asthma/COPD, fibromyalgia, osteoarthritis, kidney stone, eczema, hiatal hernia, spinal stenosis status post back surgery. She follows up with Vilma Calero , and she Presents because of chest pain. Patient says that she has chest pain on and off for one week became more steady for the last 2 days, on the left side radiating to the right shoulder and right arm, felt like it/10 on presentation, currently feels better as 3/10. Associated with some exertional dyspnea however patient is not dyspneic or tachypneic currently. No coughing. No upper respiratory tract symptoms. No fever Patient is ex-smoker, she quit about 1 year ago, she denies alcohol or illicit drugs. She does not feel depressed with no hallucination and no suicidal/homicidal ideation. Patient states her blood pressure was on the low side of her life with systolic is than 100. She has chronic constipation and she had for colonoscopy the last one was in 2016 and was unremarkable as per patient patient states that she has decrease eating last few days due to her pain She follows with Dr. Bia godinez [place] 10-325 mg Vitals stable, blood pressure on the low side at 94/58. Labs including CBC, INR, BMP, liver enzymes, INR were unremarkable. Scope but this was not detected. Severe troponin were negative with less than 0.0123. D-dimer is negative at 0.21 EKG showing normal sinus rhythm at 64 BPM with no significant ST-T changes and QTC 408. Chest x-ray: No acute process by radiology On admission patient given aspirin 325 mg and nitroglycerin and Ativan. MAPS was checked, no results was found with the patient criteria of name and date of Review of Systems CONSTITUTIONAL: No fever, no malaise, no fatigue. HEENT: No recent visual problems or hearing problems. Denied any sore throat. CARDIOVASCULAR: No orthopnea, PND, no palpitations, no syncope. PULMONARY: No shortness of breath, no cough, no hemoptysis. GASTROINTESTINAL: No diarrhea, no nausea, no vomiting, no abdominal pain. Normoactive bowel sounds. NEUROLOGICAL: No headaches, no weakness, no numbness. HEMATOLOGICAL: Denies any bleeding or petechiae. GENITOURINARY: Denies any burning micturition, frequency, or urgency. MUSCULOSKELETAL/RHEUMATOLOGICAL: Denies any joint pain, swelling, or any muscle pain. ENDOCRINE: Denies any polyuria or polydipsia. Past Medical History Past Medical History: Asthma, COPD, Fibromyalgia, Osteoarthritis (OA), Pneumonia, Skin Disorder Additional Past Medical History / Comment(s): HX KIDNEY STONES, ECZEMA, hiatal hernia, chronic constipation, hypoglycemia, History of Any Multi-Drug Resistant Organisms: None Reported Past Surgical History: Back Surgery, Breast Surgery, Section, Hysterectomy, Orthopedic Surgery Additional Past Surgical History / Comment(s): LAMINECTOMY C-5,6,7. LEFT KNEE ARTHROSCOPY. BREAST IMPLANTS. lithotripsy. COLONOSCOPY, EGD. TYSHAWN BREAST BI OPSIES, colonoscopy, oral surgery, MS Past Anesthesia/Blood Transfusion Reactions: Family History of Problems w/ Anesthesia, Motion Sickness, Postoperative Nausea & Vomiting (PONV) Additional Past Anesthesia/Blood Transfusion Reaction / Comment(s): sepitic after colonoscopy- HAD VOMITING OF BILE AFTER COLONOSCOPY. MOTHER HAS MEMORY ISSUES AFTER ANESTHESIA-TEMPORARY. Past Psychological History: Anxiety, Depression Additional Psychological History / Comment(s): PAST PANIC ATTACKS. Smoking Status: Former smoker Past Alcohol Use History: None Reported Additional Past Alcohol Use History / Comment(s): SMOKED FOR 30 YRS, 1/2 PPD. Past Drug Use History: None Reported Additional Drug Use History / Comment(s): OCC USE - Past Family History Mother Family Medical History: Cancer Additional Family Medical History / Comment(s): Mother had stents. Maternal grandfather: pancreatic cancer Sister(s) Family Medical History: Cancer Mother Sister(s) Family Medical History: Cancer Father Family Medical History: Coronary Artery Disease (CAD) Additional Family Medical History / Comment(s): 2 heart attacks. from second heart attack Medications and Allergies Home Medications Medication Instructions Recorded Confirmed Type Hydrocodone/Acetaminophen [[place] 1 tab PO QID PRN 04/25/14 12/25/19 History 10-325] traZODone HCL [traZODone] 150 mg PO HS 04/25/14 12/25/19 History Ergocalciferol (Vitamin D2) 50,000 unit PO MO 04/25/17 12/25/19 History [Vitamin D2] Cyclobenzaprine [Flexeril] 5 mg PO HS 12/25/19 12/25/19 History Linaclotide [Linzess] 290 mcg PO PC-BRKFST 12/25/19 12/25/19 History Allergies Allergy/AdvReac Type Severity Reaction Status Date / Time adhesive Allergy Rash/Hives Verified 12/25/19 18:58 bacitracin Allergy Rash/Hives Verified 12/25/19 18:58 [From Neosporin ([id number])] bacitracin zinc Allergy Rash/Hives Verified 12/25/19 18:58 [From Neosporin ([id number])] egg Allergy Unknown Verified 12/25/19 18:58 latex Allergy Rash/Hives Verified 12/25/19 18:58 neomycin sulfate Allergy Rash/Hives Verified 12/25/19 18:58 [From Neosporin ([id number])] polymyxin B Allergy Rash/Hives Verified 12/25/19 18:58 [From Neosporin ([id number])] aspirin AdvReac Vomiting Verified 12/25/19 18:58 banana AdvReac Vomiting Verified 12/25/19 18:58 oxycodone HCl [From Percocet] AdvReac Vomiting Verified 12/25/19 18:58 paper tape Allergy Rash/Hives Uncoded 12/25/19 18:58 Physical Exam Vitals: Vital Signs Temp Pulse Pulse Resp BP BP Pulse Ox 12/26/19 08:00 98.5 F 69 94/58 12/26/19 04:00 97.7 F 59 L 16 99/56 99 12/26/19 00:00 98.2 F 62 12 109/60 12/25/19 22:03 98.5 F 68 12 91/52 12/25/19 19:45 97.3 F L 78 18 92/66 99 12/25/19 19:04 92/66 12/25/19 18:50 88/60 12/25/19 18:08 78 18 86/55 99 12/25/19 16:46 70 18 112/75 98 12/25/19 15:52 97.3 F L 80 18 102/70 98 Intake and Output 12/25/19 12/26/19 12/26/19 22:59 06:59 14:59 Other: # Voids 1 Weight 54.431 kg 53.1 kg -GENERAL: The patient is alert and oriented x3, not in any acute distress. Thin built HEENT: Pupils are round and equally reacting to light. EOMI. No scleral icterus. No conjunctival pallor. Normocephalic, atraumatic. No pharyngeal erythema. No thyromegaly. CARDIOVASCULAR: S1 and S2 present. No murmurs, rubs, or gallops. PULMONARY: Chest is clear to auscultation, no wheezing or crackles. ABDOMEN: Soft, nontender, nondistended, normoactive bowel sounds. No palpable organomegaly. MUSCULOSKELETAL: No joint swelling or deformity. EXTREMITIES: No cyanosis, clubbing, or pedal edema. NEUROLOGICAL: Gross neurological examination did not reveal any focal deficits. SKIN: No rashes. No petechiae Results CBC & Chem 7: 12/25/19 16:41 12/25/19 16:41 Labs: Abnormal Lab Results - Last 24 Hours (Table) 12/25/19 Range/Units 16:41 Sodium 135 L (137-145) mmol/L Thrombosis Risk Factor Assmnt - Choose All That Apply Any of the Below Risk Factors Present?: No Other Risk Factors: No Other congenital or acquired thrombophilia - If yes, enter type in comment: No Thrombosis Risk Factor Assessment Level: Very Low Risk Assessment and Plan Assessment: Chest pain, rule out cardiac causes. D-dimer was negative with no respiratory symptoms Fibromyalgia Osteoarthritis Chronic constipation Hiatal hernia Asthma/COPD, not an active issue History of eczema History of kidney stone Anxiety depression, not in activation spinal stenosis status post back surgery Plan: This is a pleasant 54 recent female who presents with chest pain, cardiology has been consulted. Follow-up stress test and echocardiogram. The suspicion for PE is very low and more test for this will have more risks than benefits. She has chronic constipation, mostly related to her pain medication. Patient was started on Senokot standing dose and MiraLAX as needed. Also will provide the patient was some hydration as she reports decrease eating Labs and medication were reviewed.. Continue same treatment. Continue with symptomatic treatment. Resume home medication. Monitor lytes and vitals. DVT and GI prophylaxis. Further recommendations of the clinical course of the patient DVT prophylaxis: Subcutaneous heparin GI Prophylaxis: Pepcid Prognosis is guarded
[2019-12-26] MEDS: SENNOSIDES-DOCUSATE SODIUM 1 EACH TAB PO SCH ×2 (13:24→20:23)
[2019-12-26] MEDS: FAMOTIDINE 20 MG/2 ML VIAL IV SCH (20:22)
[2019-12-26] MEDS ORDERED: CYCLOBENZAPRINE 5 MG TAB PO SCH (21:00)
[2019-12-27] MEDS ORDERED: NON FORMULARY DRUG (Linaclotide [Linzess] 290 MCG) PO SCH (08:30)
[2019-12-27] MEDS ORDERED: ASPIRIN 81 MG PO SCH (09:00)
--- NOTE | 2019-12-27 10:18 | P.PN ---
Subjective Progress Note Date: 12/27/19 This is a pleasant 54-year-old female with documented history of asthma, COPD, fibromyalgia, anxiety and depression, prior history of smoking, she states that she quit smoking this past summer. Family history of premature coronary artery disease. Presented to the hospital with symptoms of sharp chest pains which have been somewhat constant for the past couple of days. She states that the pain does not change with deep breathing or at least she doesn't notice if it does, she does have shortness of breath which according to her is normal for her. She complains also of having a significant headache and states that she has history of migraine headaches. According to the patient, the pain as quite sharp in nature and she states when she presses on that area that seems to alleviate the pain for a brief period of time. Her EKG on presentation here showed a normal sinus rhythm with no acute changes. Chest x-ray did not reveal any evidence of acute pulmonary disease. White blood cell count 4.9, hemoglobin 13.3, platelet count 238. D-dimer 0.2. Sodium 135, potassium 4.1, BUN 13, creatinine 0.6. Troponins are negative 3 dean virus, none detected. Blood pressure 94/60 with a heart rate in the 60s. At the time of my examination this morning, patient is complaining of pain in her chest, located in the left lateral area beneath her breast, significantly worse this morning with deep breathing, she states she gets some alleviation of the pain when applying pressure to that area. She also complains of severe headache this morning. 12/27/2019 Patient seen and examined this morning, continues to complain of headache. Denies any chest discomfort. Dobutamine echocardiographic study from yesterday did not reveal any evidence of reversible ischemia. Echocardiogram with Doppler study revealed a normal left ventricular systolic function. Blood pressure 110/60 with a heart rate in the 60s. Objective - Vital Signs Vital signs: Vital Signs Temp 98.3 F 12/27/19 04:00 Pulse 62 12/27/19 04:00 Resp 16 12/27/19 04:00 BP 109/64 12/27/19 04:00 Pulse Ox 98 12/27/19 04:00 Intake & Output 12/26/19 12/27/19 12/27/19 18:59 06:59 18:59 Intake Total 560 Balance 560 Weight 53.1 kg 53.3 kg Intake: Oral 560 Other: # Voids 3 - Exam PHYSICAL EXAMINATION: GENERAL: 54-year-old female in no acute distress at the time of my examination HEENT: Head is atraumatic, normocephalic. Pupils equal, round. Sclera anicteric. Conjunctiva are clear. Mucous membranes of the mouth are moist. Neck is supple. There is no elevated jugular venous pressure. No carotid bruit is heard. HEART EXAMINATION: Heart S1, S2 normal. No murmur or gallop heard. CHEST EXAMINATION: Lungs are clear to auscultation and precussion. No chest wall tenderness is noted on palpation or with deep breathing. ABDOMEN: Soft, nontender. Bowel sounds are heard. No organomegaly noted. EXTREMITIES: 2+ peripheral pulses with no evidence of peripheral edema and no calf tenderness noted. NEUROLOGIC patient is awake, alert and oriented 3 . . - Labs CBC & Chem 7: 12/25/19 16:41 12/25/19 16:41 Assessment and Plan Plan: Assessment and plan #1 chest pain, atypical for acute coronary syndrome. Troponins negative 3. EKG shows normal sinus rhythm with no acute changes. #2 asthma #3 COPD #4 fibromyalgia #5 anxiety and depression #6 prior history of smoking, quit last summer #7 Family history of premature coronary artery disease Plan Echocardiogram with Doppler study revealed a normal left ventricular systolic function. Dobutamine echocardiographic study negative. From cardiology's perspective, the patient may be able to be discharged home, we'll make her a follow-up appointment in the office post discharge. If the patient remains in the hospital, we will see her on an as-needed basis bases only, please don't hesitate to call us if you have any questions at all. DNP note has been reviewed, I agree with a documented findings and plan of care. Patient was seen and examined.
[2019-12-27] MEDS: SENNOSIDES-DOCUSATE SODIUM 1 EACH TAB PO SCH (10:32)
[2019-12-27] MEDS: FAMOTIDINE 20 MG/2 ML VIAL IV SCH (10:33)
[2019-12-27] MEDS: HEPARIN SODIUM,PORCINE 5,000 UNIT/ML 1 ML VIAL SQ SCH (10:33)
--- NOTE | 2019-12-27 11:10 | P.DS ---
Providers Date of admission: 12/25/19 18:14 Attending physician: Rufino Daly Consults: 12/25/19 18:14 Consult Physician Urgent Consulting Provider: [facility] Consult Reason/Comments: Chest pain Do you want consulting provider notified?: Yes Primary care physician: Christy Baum [facility] Course: Diagnoses: Chest pain, cardiac causes has been ruled out and rental agent cleared the patient . D-dimer was negative with no respiratory symptoms Chronic constipation, Improved Fibromyalgia Osteoarthritis Hiatal hernia Asthma/COPD, not an active issue History of eczema History of kidney stone Anxiety depression, not in activation spinal stenosis status post back surgery Hospital course: This is a pleasant 54 years old female with past medical history of asthma/COPD, fibromyalgia, osteoarthritis, kidney stone, eczema, hiatal hernia, spinal stenosis status post back surgery. She follows up with Vilma Calero , and she Presents because of chest pain. Also patient was complained from constipation. Director Of Media evaluated the patient, she has normal left ventricular systolic function by echocardiogram. Also dobutamine echocardiographic stress test came back negative. Cardiology cleared her for discharge. Her chest pain is significantly improved almost only feeling of a pinch in her chest now. No dyspnea no other symptoms, no abdominal pain or nausea vomiting previous She has constipation mostly related to her chronic narcotic use for many years as per patient. Patient was given Senokot and after one pill she had good bowel movement, and patient feels satisfied. Patient will be discharged on Senokot as needed. Patient was cleared for discharge by cardiology team Problems and management plan were discussed with the patient and he verbalized understanding and acceptance Patient was found stable and can be discharged home however he needs follow-up as an outpatient. Patient was instructed to follow up with HERMELINDO Calero within one week and patient agrees. Also patient was instructed to follow up with her rental agent in [address] Evans and she agrees Gen: patient is a AAOx3, no distress CVS: S1-S2, RRR, no murmur Lungs: B/L CTA, no wheezing Abdomen: soft, no distention, no tenderness, positive bowel sounds Extremity: no leg edema or induration Time spent more than 35 minutes Plan - Discharge Summary Discharge Rx Participant: Yes New Discharge Prescriptions: No Action traZODone HCL [traZODone] 150 mg PO HS Hydrocodone/Acetaminophen [[place] 10-325] 1 tab PO QID PRN PRN Reason: Pain Ergocalciferol (Vitamin D2) [Vitamin D2] 50,000 unit PO MO Cyclobenzaprine [Flexeril] 5 mg PO HS Linaclotide [Linzess] 290 mcg PO PC-BRKFST Discharge Medication List Hydrocodone/Acetaminophen [[place] 10-325] 1 tab PO QID PRN 04/25/14 [History] traZODone HCL [traZODone] 150 mg PO HS 04/25/14 [History] Ergocalciferol (Vitamin D2) [Vitamin D2] 50,000 unit PO MO 04/25/17 [History] Cyclobenzaprine [Flexeril] 5 mg PO HS 12/25/19 [History] Linaclotide [Linzess] 290 mcg PO PC-BRKFST 12/25/19 [History] Follow up Appointment(s)/Referral(s): Christy Baum MD [Primary Care Provider] - 1-2 days Patient Instructions/Handouts: Chest Pain (DC), COPD (Chronic Obstructive Pulmonary Disease) (DC)
[2019-12-27 14:26] VITALS: BP 104/60; PULSE 67; TEMP 97.7
[2019-12-27] MEDS ORDERED: FAMOTIDINE 20 MG TAB PO SCH (21:00)
[2019-12-30] MEDS ORDERED: ERGOCALCIFEROL 50,000 UNIT CAP PO SCH (09:00)
== END 2019-12-27 14:58 | disposition home or self-care (01) ==
LOC: EC 15:51 → 3SCARD 18:14
PROVIDERS: ADMIT Hospitalist; ATTEND Hospitalist
DX: R07.89 Other chest pain (principal); R42 Dizziness and giddiness; R06.02 Shortness of breath; R06.00 Dyspnea, unspecified; L30.9 Dermatitis, unspecified; K59.09 Other constipation; Z87.09 Personal history of other diseases of the respiratory system; E16.2 Hypoglycemia, unspecified; K44.9 Diaphragmatic hernia without obstruction or gangrene; F32.9 Major depressive disorder, single episode, unspecified; F41.9 Anxiety disorder, unspecified; F41.0 Panic disorder [episodic paroxysmal anxiety]; M79.7 Fibromyalgia; M48.00 Spinal stenosis, site unspecified; G43.909 Migraine, unspecified, not intractable, without status migrainosus; M19.90 Unspecified osteoarthritis, unspecified site; Z03.818 Encounter for observation for suspected exposure to other biological agents ruled out; Z87.01 Personal history of pneumonia (recurrent); Z87.442 Personal history of urinary calculi; Z87.891 Personal history of nicotine dependence; Z79.899 Other long term (current) drug therapy; Z79.891 Long term (current) use of opiate analgesic; Z88.6 Allergy status to analgesic agent; Z88.1 Allergy status to other antibiotic agents; Z91.012 Allergy to eggs; Z91.040 Latex allergy status; Z88.5 Allergy status to narcotic agent; Z91.018 Allergy to other foods; Z91.048 Other nonmedicinal substance allergy status; Z98.82 Breast implant status; Z90.710 Acquired absence of both cervix and uterus; Z80.0 Family history of malignant neoplasm of digestive organs; Z82.49 Family history of ischemic heart disease and other diseases of the circulatory system
CPT/HCPCS: 96361 ×3; 96372 ×2; 96375; 93005 ×2; 96374; 99285; 36415; 93306; 93351; 85379; 80061; 80053; 83735; 84484 ×2; 85025; 85610; 85730; 87635; 71046; G0378 ×3; J2060; J1250; J1644 ×2

== ENCOUNTER 2020-11-20 17:03 | Emergency (ER) | payer MEDICARE, OTHER ==
[2020-11-20 17:22] VITALS: RESP 18; TEMP 98.7
--- NOTE | 2020-11-20 18:18 | US ---
EXAMINATION TYPE: US venous doppler duplex LE RT DATE OF EXAM: 11/20/2020 5:38 PM COMPARISON: NONE CLINICAL HISTORY: pain, swelling x 2 weeks, recent travel. pain and edema right leg for 2 weeks. SIDE PERFORMED: right TECHNIQUE: The lower extremity deep venous system is examined utilizing real time linear array sonog kevin with graded compression, doppler sonography and color-flow sonography. VESSELS IMAGED: Common Femoral Vein Deep Femoral Vein Greater Saphenous Vein * Femoral Vein Popliteal Vein Small Saphenous Vein * Proximal Calf Veins (* superficial vessels) Right Leg: no evidence of DVT. complex area right popliteal fossa = 6.0 x 1.1 x 4.6cm, Tran's cyst IMPRESSION: There is popliteal cyst. No evidence of deep vein thrombosis in the right leg.
--- NOTE | 2020-11-20 18:29 | ED ---
Extremity Problem HPI - General Chief complaint: Extremity Problem,Nontraumatic Stated complaint: Possible blood clot Time Seen by Provider: 11/20/20 17:34 Source: patient Mode of arrival: ambulatory Limitations: no limitations - History of Present Illness Initial comments: Patient is a 55-year-old female presenting to the emergency Department with comp laints of pain and swelling in her right leg for the past 2 weeks. Patient states her pain initially started after she flew to [place]. She noticed some pain behind her right knee and then some achiness that radiating down her right lower leg. Patient states she just returned from [place] 2 days ago and decided to be seen for this. She was concerned for possible DVT. She states the pain has continued in her right posterior calf area. She denies any previous surgeries or injuries. She denies any previous DVTs. She denies any chest pain or shortness of breath, no cough. She has no further complaints at this time. Upon arrival to the ER, her vital signs are stable. - Related Data Home Medications Medication Instructions Recorded Confirmed Hydrocodone/Acetaminophen [[place] 1 tab PO QID PRN 04/25/14 12/25/19 10-325] traZODone HCL [traZODone] 150 mg PO HS 04/25/14 12/25/19 Ergocalciferol (Vitamin D2) 50,000 unit PO MO 04/25/17 12/25/19 [Vitamin D2] Cyclobenzaprine [Flexeril] 5 mg PO HS 12/25/19 12/25/19 Linaclotide [Linzess] 290 mcg PO PC-BRKFST 12/25/19 12/25/19 Previous Rx's Medication Instructions Recorded Famotidine [Pepcid] 20 mg PO Q12HR #40 tab 12/27/19 Sennosides-Docusate Sodium 1 each PO BID PRN #10 tab 12/27/19 [Senokot-S] Allergies Allergy/AdvReac Type Severity Reaction Status Date / Time adhesive Allergy Rash/Hives Verified 11/20/20 17:21 bacitracin Allergy Rash/Hives Verified 11/20/20 17:21 [From Neosporin ([id number])] bacitracin zinc Allergy Rash/Hives Verified 11/20/20 17:21 [From Neosporin ([id number])] egg Allergy Unknown Verified 11/20/20 17:21 latex Allergy Rash/Hives Verified 11/20/20 17:21 neomycin sulfate Allergy Rash/Hives Verified 11/20/20 17:21 [From Neosporin ([id number])] polymyxin B Allergy Rash/Hives Verified 11/20/20 17:21 [From Neosporin ([id number])] aspirin AdvReac Vomiting Verified 11/20/20 17:21 banana AdvReac Vomiting Verified 11/20/20 17:21 oxycodone HCl [From Percocet] AdvReac Vomiting Verified 11/20/20 17:21 paper tape Allergy Rash/Hives Uncoded 12/25/19 18:58 Review of Systems ROS Statement: Those systems with pertinent positive or pertinent negative responses have been documented in the HPI. ROS Other: All systems not noted in ROS Statement are negative. Past Medical History Past Medical History: Asthma, COPD, Fibromyalgia, Osteoarthritis (OA), Pneumonia, Skin Disorder Additional Past Medical History / Comment(s): HX KIDNEY STONES, ECZEMA, hiatal hernia, chronic constipation, hypoglycemia, History of Any Multi-Drug Resistant Organisms: None Reported Past Surgical History: Back Surgery, Breast Surgery, Section, Hysterectomy, Orthopedic Surgery Additional Past Surgical History / Comment(s): LAMINECTOMY C-5,6,7. LEFT KNEE ARTHROSCOPY. BREAST IMPLANTS. lithotripsy. COLONOSCOPY, EGD. TYSHAWN BREAST BIOPSIES, colonoscopy, oral surgery, MS Past Anesthesia/Blood Transfusion Reactions: Family History of Problems w/ Anesthesia, Motion Sickness, Postoperative Nausea & Vomiting (PONV) Additional Past Anesthesia/Blood Transfusion Reaction / Comment(s): sepitic after colonoscopy- HAD VOMITING OF BILE AFTER COLONOSCOPY. MOTHER HAS MEMORY ISSUES AFTER ANESTHESIA-TEMPORARY. Past Psychological History: Anxiety, Depression Past Alcohol Use History: None Reported Past Drug Use History: None Reported - Past Family History Mother Family Medical History: Cancer Additional Family Medical History / Comment(s): Mother had stents. Maternal grandfather: pancreatic cancer Sister(s) Family Medical History: Cancer Mother Sister(s) Family Medical History: Cancer Father Family Medical History: Coronary Artery Disease (CAD) Additional Family Medical History / Comment(s): 2 heart attacks. from second heart attack General Exam - General Exam Comments Initial Comments: GENERAL: Patient is well-developed and well-nourished. Patient is nontoxic and in no acute distress. HEAD: Atraumatic, normocephalic. EYES: Pupils equal round and reactive to light, extraocular movements intact, sclera anicteric, conjunctiva are normal. Eyelids were unremarkable. ENT: TMs normal, nares patent, oropharynx clear without exudates. Moist mucous membranes. NECK: Normal range of motion, supple without lymphadenopathy or JVD. LUNGS: Unlabored respirations. Breath sounds clear to auscultation bilaterally and equal. No wheezes rales or rhonchi. HEART: Regular rate and rhythm without murmurs, rubs or gallops. ABDOMEN: Soft, nontender, normoactive bowel sounds. No guarding, no rebound. No masses appreciated. : Deferred MUSCULOSKELETAL: Normal extremities with adequate strength and normal range of motion, no pitting or edema. No clubbing or cyanosis. Patient does have some very mild swelling around her right knee compared to left, she does have full active range of motion of the right extremity. Mild pain with palpation of the right calf, no erythema. She is neurovascular intact bilaterally. NEUROLOGICAL: Patient is alert and oriented x 3. Motor and sensory are also intact. Cranial nerves II through XII grossly intact. Symmetrical smile. Normal speech, normal gait. PSYCH: Normal mood, normal affect. SKIN: Warm, Dry, normal turgor, no rashes or lesions noted. Limitations: no limitations Course Vital Signs 11/20/20 17:19 Temperature 98.7 F Pulse Rate 96 Respiratory 18 Rate Blood Pressure 103/70 O2 Sat by Pulse 98 Oximetry Medical Decision Making - Medical Decision Making Patient is a 55-year-old female here for right lower leg pain that's been increasing over the past 2 weeks. She has had recent travel to [place] and is concerned for DVT. No erythema or signs of infection on exam, she is Full range of motion. Ultrasound shows no evidence for acute DVT. There is a popliteal cyst. I discussed these findings with the patient. I recommended continuing with compression with an Babak wrap around the knee, heat or ice packs for discomfort. If symptoms persist, follow up with orthopedics. She states she [facility] past and will contact them. Patient is stable for discharge. Patient is in agreement with this plan of care. Return parameters were discussed with the patient and they verbalized understanding. Case discussed with Dr. Galvan. Disposition Clinical Impression: Synovial cyst of popliteal space [Tran], right knee, Pain in right lower leg Disposition: HOME SELF-CARE Condition: Stable Instructions (If sedation given, give patient instructions): Bakers Cyst (ED) Additional Instructions: Please return to the Emergency Department if symptoms worsen or any other concerns. May use compression around the knee as discussed, hot or cold packs. If symptoms persist, follow up with [facility] as discussed. Is patient prescribed a controlled substance at d/c from ED?: No Referrals: Christy Baum MD [Primary Care Provider] - 1-2 days Decision Date: 11/20/20 Decision Time: 18:29
[2020-11-20 18:41] VITALS: BP 113/79; PULSE 80
== END 2020-11-20 18:39 | disposition home or self-care (01) ==
LOC: EC 17:03
DX: M71.21 Synovial cyst of popliteal space [Baker], right knee (principal); F32.9 Major depressive disorder, single episode, unspecified; F41.9 Anxiety disorder, unspecified; J44.9 Chronic obstructive pulmonary disease, unspecified; M19.90 Unspecified osteoarthritis, unspecified site
CPT/HCPCS: 99283

== ENCOUNTER → 2021-02-22 | Outpatient (CLI) | payer MEDICARE, OTHER ==
--- NOTE | 2021-02-22 15:55 | MR ---
EXAMINATION TYPE: MR cervical spine wo con DATE OF EXAM: 02/22/2021 COMPARISON: Neck pain HISTORY: Neck pain that goes down arms since 2004, history of surgery 2004. TECHNIQUE: Multiplanar, multisequence images of the cervical spine were acquired. C2-C3: No evidence for degenerative disc disease. No disc bulge/herniation or protrusion. No Canal stenosis. Foramina are patent bilaterally. C3-C4: No evidence for degenerative disc disease. No disc bulge/herniation or protrusion. No Canal stenosis. Foramina are patent bilaterally. C4-C5: No evidence for degenerative disc disease. No disc bulge/herniation or protrusion. No Canal stenosis. Foramina are patent bilaterally. C5-C6: There is a disc osteophyte complex with bilateral uncovertebral and facet arthropathy resultin g in moderate left neural foraminal narrowing and mild central canal stenosis. C6-C7: There is a disc osteophyte complex with mild central canal stenosis. C7-T1: No evidence for degenerative disc disease. No disc bulge/herniation or protrusion. No Canal stenosis. Foramina are patent bilaterally. Cervical segments are intact. There is normal alignment. Cervical spinal cord is of normal signal. Craniovertebral junction relationships are within normal limits. IMPRESSION: C5-C6: There is a disc osteophyte complex with bilateral uncovertebral and facet arthropathy resultin g in moderate left neural foraminal narrowing and mild central canal stenosis. C6-C7: There is a disc osteophyte complex with mild central canal stenosis.
== END | disposition home or self-care (01) ==
LOC: RADMRIMAIN 15:10
PROVIDERS: ATTEND Psychiatry & Neurology Neurology
DX: M48.02 Spinal stenosis, cervical region (principal); M25.78 Osteophyte, vertebrae; M99.72 Connective tissue and disc stenosis of intervertebral foramina of thoracic region
CPT/HCPCS: 72141

== ENCOUNTER 2021-05-03 15:24 | Emergency (ER) | payer MEDICARE, OTHER ==
--- NOTE | 2021-05-03 17:41 | XR ---
EXAMINATION TYPE: XR abdomen 2V DATE OF EXAM: 05/03/2021 COMPARISON: 04/25/2017 HISTORY: Abdominal pain TECHNIQUE: 2 views FINDINGS: 2 views upright show no sign of intestinal obstruction or pneumoperitoneum. Fecal pattern i s normal. There are no pathologic calcifications over the kidneys. There is no evidence of a mass. Kayleigh ng bases are clear. IMPRESSION: Nonacute abdomen. No adverse change.
[2021-05-03] MEDS ORDERED: SODIUM CHLORIDE 0.9% 500 ML 500 ML IV STA (19:25)
[2021-05-03] MEDS ORDERED: SODIUM CHLORIDE 0.9% 1,000 ML IV STA (19:25)
--- NOTE | 2021-05-03 19:44 | ED ---
Abdominal Pain HPI - General Source: patient, RN notes reviewed Mode of arrival: ambulatory Limitations: no limitations <Ignacio Galindo - Last Filed: 05/03/21 22:28> <Lucy Rueda - Last Filed: 05/04/21 13:44> - General Chief Complaint: Abdominal Pain Stated Complaint: Abd Pain Time Seen by Provider: 05/03/21 19:01 - History of Present Illness Initial Comments: 55-year-old female presents emergency problem with chief complaint constipation. Patient does admit that she has chronic issues with constipation she had a colostomy approximately 8 years ago which she states her some polyps. Patient is on multiple medications for constipation but states that helping. She states her stool is very narrow she describes as the shape of a pencil. Patient denies any fevers or chills she does currently see GI. Patient denies any nausea vomiting no chest pain or shortness breath patient offers no complaints. (Ignacio Galindo) - Related Data Home Medications Medication Instructions Recorded Confirmed Hydrocodone/Acetaminophen [Rio 1 tab PO TID PRN 04/25/14 05/03/21 10-325] traZODone HCL [traZODone] 150 mg PO HS 04/25/14 05/03/21 Cyclobenzaprine [Flexeril] 10 mg PO HS 12/25/19 05/03/21 Naloxegol Oxalate [Movantik] 25 mg PO AC-BRKFST 11/20/20 05/03/21 Rizatriptan Benzoate [Maxalt] 10 mg PO BID PRN 05/03/21 05/03/21 polyethylene glycoL 3350 [Miralax] 17 gm PO DAILY PRN 05/03/21 05/03/21 Previous Rx's Medication Instructions Recorded Bisac/NaCl/Nahco3/KCl/Peg 3350 1 kit PO DIRECTED #1 kit 05/03/21 [Peg-Prep Kit] Allergies Allergy/AdvReac Type Severity Reaction Status Date / Time adhesive Allergy Rash/Hives Verified 05/03/21 19:51 bacitracin Allergy Rash/Hives Verified 05/03/21 19:51 [From Neosporin ([id number])] bacitracin zinc Allergy Rash/Hives Verified 05/03/21 19:51 [From Neosporin ([id number])] egg Allergy Unknown Verified 05/03/21 19:51 latex Allergy Rash/Hives Verified 05/03/21 19:51 neomycin sulfate Allergy Rash/Hives Verified 05/03/21 19:51 [From Neosporin ([id number]-noe-ktdil)] polymyxin B Allergy Rash/Hives Verified 05/03/21 19:51 [From Neosporin ([id number]-bwh-[id number])] aspirin AdvReac Vomiting Verified 05/03/21 19:51 banana AdvReac Vomiting Verified 05/03/21 19:51 oxycodone HCl [From Percocet] AdvReac Vomiting Verified 05/03/21 19:51 paper tape Allergy Rash/Hives Uncoded 05/03/21 19:51 Review of Systems ROS Other: All systems not noted in ROS Statement are negative. <Ignacio Galindo - Last Filed: 05/03/21 22:28> ROS Other: All systems not noted in ROS Statement are negative. <Lucy Rueda - Last Filed: 05/04/21 13:44> ROS Statement: Those systems with pertinent positive or pertinent negative responses have been documented in the HPI. Past Medical History Past Medical History: Asthma, COPD, Fibromyalgia, Osteoarthritis (OA), Pneumonia, Skin Disorder Additional Past Medical History / Comment(s): HX KIDNEY STONES, ECZEMA, hiatal hernia, chronic constipation, hypoglycemia, History of Any Multi-Drug Resistant Organisms: None Reported Past Surgical History: Back Surgery, Breast Surgery, Section, Hyster ectomy, Orthopedic Surgery Additional Past Surgical History / Comment(s): LAMINECTOMY C-5,6,7. LEFT KNEE ARTHROSCOPY. BREAST IMPLANTS. lithotripsy. COLONOSCOPY, EGD. TYSHAWN BREAST BIOPSIES, colonoscopy, oral surgery, MS Past Anesthesia/Blood Transfusion Reactions: Family History of Problems w/ Anesthesia, Motion Sickness, Postoperative Nausea & Vomiting (PONV) Additional Past Anesthesia/Blood Transfusion Reaction / Comment(s): sepitic after colonoscopy- HAD VOMITING OF BILE AFTER COLONOSCOPY. MOTHER HAS MEMORY ISSUES AFTER ANESTHESIA-TEMPORARY. Past Psychological History: Anxiety, Depression Smoking Status: Former smoker Past Alcohol Use History: None Reported Past Drug Use History: None Reported - Past Family History Mother Family Medical History: Cancer Additional Family Medical History / Comment(s): Mother had stents. Maternal grandfather: pancreatic cancer Sister(s) Family Medical History: Cancer Mother Sister(s) Family Medical History: Cancer Father Family Medical History: Coronary Artery Disease (CAD) Additional Family Medical History / Comment(s): 2 heart attacks. from second heart attack <Ignacio Galindo - Last Filed: 05/03/21 22:28> General Exam Limitations: no limitations General appearance: alert, in no apparent distress Head exam: Present: atraumatic, normocephalic, normal inspection Eye exam: Present: normal appearance, PERRL, EOMI. Absent: scleral icterus, conjunctival injection, periorbital swelling ENT exam: Present: normal exam, normal oropharynx, mucous membranes moist Respiratory exam: Present: normal lung sounds bilaterally. Absent: respiratory distress, wheezes, rales, rhonchi, stridor Cardiovascular Exam: Present: regular rate, normal rhythm, normal heart sounds. Absent: systolic murmur, diastolic murmur, rubs, gallop, clicks GI/Abdominal exam: Present: soft, distended, tenderness, normal bowel sounds. Absent: guarding, rebound, rigid Back exam: Absent: CVA tenderness (R), CVA tenderness (L) <Ignacio Galindo - Last Filed: 05/03/21 22:28> Course Vital Signs 05/03/21 05/03/21 05/03/21 16:57 20:23 21:49 Temperature 98.1 F 98.5 F Pulse Rate 83 64 59 L Respiratory 18 20 18 Rate Blood Pressure 95/71 115/77 122/76 O2 Sat by Pulse 98 99 100 Oximetry 05/03/21 23:28 Temperature 97.8 F Pulse Rate 62 Respiratory 20 Rate Blood Pressure 114/80 O2 Sat by Pulse 99 Oximetry Medical Decision Making - Lab Data Result diagrams: 05/03/21 20:10 05/03/21 20:10 <Ignacio Galindo - Last Filed: 05/03/21 22:28> - Lab Data Result diagrams: 05/03/21 20:10 05/03/21 20:10 <Lucy Rueda - Last Filed: 05/04/21 13:44> - Medical Decision Making CT does not reveal any acute abnormality identified patient that she needs to follow-up for colonoscopy secondary to change in caliber of stool. Patient's laboratory unremarkable patient feels comfortable discharge and close follow-up. (Ignacio Galindo) I was available for consultation in the emergency department. The history and physical exam were done by the midlevel provider. I was consulted for this patients care. I reviewed the case with the midlevel provider and based on their presentation of the patient, I agree with the assessment, medical decision making and plan of care as documented. Chart was dictated using [employer] dictation software. Attempts were made to correct any dictation errors however some typographical errors may persist. Patient was seen during a national state of emergency due to the Covid-19 pandemic. (Lucy Rueda) - Lab Data Lab Results 05/03/21 05/03/21 05/03/21 Range/Units 20:10 20:10 20:10 WBC 6.5 (3.8-10.6) k/uL RBC 4.43 (3.80-5.40) m/uL Hgb 13.5 (11.4-16.0) gm/dL Hct 41.5 (34.0-46.0) % MCV 93.6 (80.0-100.0) fL MCH 30.4 (25.0-35.0) pg MCHC 32.5 (31.0-37.0) g/dL RDW 14.0 (11.5-15.5) % Plt Count 303 (150-450) k/uL MPV 6.9 Neutrophils % 42 % Lymphocytes % 49 % Monocytes % 4 % Eosinophils % 3 % Basophils % 1 % Neutrophils # 2.7 (1.3-7.7) k/uL Lymphocytes # 3.1 (1.0-4.8) k/uL Monocytes # 0.3 (0-1.0) k/uL Eosinophils # 0.2 (0-0.7) k/uL Basophils # 0.1 (0-0.2) k/uL Sodium 137 (137-145) mmol/L Potassium 4.0 (3.5-5.1) mmol/L Chloride 104 (98-107) mmol/L Carbon Dioxide 27 (22-30) mmol/L Anion Gap 6 mmol/L BUN 9 (7-17) mg/dL Creatinine 0.68 (0.52-1.04) mg/dL Est GFR (CKD-EPI)AfAm >90 (>60 ml/min/1.73 sqM) Est GFR (CKD-EPI)NonAf >90 (>60 ml/min/1.73 sqM) Glucose 94 (74-99) mg/dL Plasma Lactic Acid Que 0.5 L (0.7-2.0) mmol/L Calcium 9.1 (8.4-10.2) mg/dL Total Bilirubin 0.2 (0.2-1.3) mg/dL AST 26 (14-36) U/L ALT 28 (4-34) U/L Alkaline Phosphatase 117 (38-126) U/L Total Protein 6.5 (6.3-8.2) g/dL Albumin 3.9 (3.5-5.0) g/dL Lipase 20 L (23-300) U/L Disposition Is patient prescribed a controlled substance at d/c from ED?: No Time of Disposition: 22:29 <Ignacio Galindo - Last Filed: 05/03/21 22:28> <Lucy Rueda - Last Filed: 05/04/21 13:44> Clinical Impression: Abdominal pain Disposition: HOME SELF-CARE Condition: Stable Instructions (If sedation given, give patient instructions): Abdominal Pain (ED) Additional Instructions: Please return to the Emergency Department if symptoms worsen or any other concerns. Prescriptions: Bisac/NaCl/Nahco3/KCl/Peg 3350 [Peg-Prep Kit] 1 kit PO DIRECTED #1 kit Referrals: Christy Baum MD [Primary Care Provider] - 1-2 days
[2021-05-03 20:07] LABS: Basophils # (A) 0.1 k/uL (0-0.2); Basophils % (A) 1 %; Eosinophils # (A) 0.2 k/uL (0-0.7); Eosinophils % (A) 3 %; HCT 41.5 % (34.0-46.0); HGB 13.5 gm/dL (11.4-16.0); Lymphocytes # (A) 3.1 k/uL (1.0-4.8); Lymphocytes % (A) 49 %; MCH 30.4 pg (25.0-35.0); MCHC 32.5 g/dL (31.0-37.0); MCV 93.6 fL (80.0-100.0); Mean Platelet Volume 6.9; Monocytes # (A) 0.3 k/uL (0-1.0); Monocytes % (A) 4 %; Neutrophils # (A) 2.7 k/uL (1.3-7.7); Neutrophils % (A) 42 %; Platelet Count 303 k/uL (150-450); RBC 4.43 m/uL (3.80-5.40); WBC 6.5 k/uL (3.8-10.6)
[2021-05-03 20:15] LABS: ALT 28 U/L (4-34); AST 26 U/L (14-36); African American GFR (CKD) >90 (>60 ml/min/1.73 sqM); Albumin 3.9 g/dL (3.5-5.0); Alkaline Phosphatase 117 U/L (38-126); Anion Gap 6 mmol/L; Blood Urea Nitrogen 9 mg/dL (7-17); Calcium 9.1 mg/dL (8.4-10.2); Carbon Dioxide 27 mmol/L (22-30); Chloride 104 mmol/L (98-107); Glucose 94 mg/dL (74-99); Lipase 20 U/L (23-300); Non-African American GFR(CKD) >90 (>60 ml/min/1.73 sqM); Sodium 137 mmol/L (137-145); Total Bilirubin 0.2 mg/dL (0.2-1.3); Total Protein 6.5 g/dL (6.3-8.2)
--- NOTE | 2021-05-03 21:38 | CT ---
EXAMINATION TYPE: CT abdomen pelvis w con DATE OF EXAM: 05/03/2021 COMPARISON: 12/29/2018 HISTORY: Abdominal pain and constipation. CT DLP: 564.2 mGycm Automated exposure control for dose reduction was used. CONTRAST: Performed with IV Contrast, patient injected with 100ml mL of Isovue 300. Lung bases are clear. There is no pleural effusion. Heart size is normal. There is no pericardial eff usion. Liver spleen stomach pancreas gallbladder appear intact. Bile ducts are not dilated. There is no adrenal mass. Kidneys show satisfactory contrast opacification. There is no hydronephrosi s. Ureters are not dilated. Bladder distends smoothly. There is no inguinal hernia. There is no free fluid in the pelvis. There is no mesenteric edema. There is no ascites or free air. There is no bowel obstruction. Appendix is not seen. There is no sign of thickened appendix. Lumbar vertebra have normal alignment. Posterior elements are intact. There is no compression fractur e. Bony pelvis is intact. The hip joints are intact. There is hysterectomy. There is 2.4 cm cyst on t he left ovary. IMPRESSION: No acute abnormality in the abdomen pelvis. There is left ovarian cyst not significantly different th an old exam.
[2021-05-03 23:30] VITALS: BP 114/80; PULSE 62; RESP 20; TEMP 97.8
== END 2021-05-03 23:30 | disposition home or self-care (01) ==
LOC: EC 15:24
DX: R10.9 Unspecified abdominal pain (principal); J45.909 Unspecified asthma, uncomplicated; M19.90 Unspecified osteoarthritis, unspecified site; F41.9 Anxiety disorder, unspecified; F32.9 Major depressive disorder, single episode, unspecified; Z88.5 Allergy status to narcotic agent; Z88.6 Allergy status to analgesic agent; Z88.1 Allergy status to other antibiotic agents; Z91.040 Latex allergy status; Z87.442 Personal history of urinary calculi; Z90.710 Acquired absence of both cervix and uterus; Z87.891 Personal history of nicotine dependence
CPT/HCPCS: 99284; 96360; 96361 ×2; 80053; 83605; 83690; 85025; 74019; 74177; Q9967

== ENCOUNTER 2022-03-29 08:04 | Day surgery (SDC) | payer MEDICARE, OTHER ==
[2022-03-25 13:54] VITALS: BMI 20.1
[~2022-03-29 08:04] MED LIST changes: +LIDOCAINE 1% (10MG/ML) FOR IV START INTRADERMA PRN
[2022-03-29 08:54] VITALS: TEMP 97.2
[2022-03-29] MEDS ORDERED: PROPOFOL 10 MG/ML 20 ML VIAL IV ONE (09:28)
--- NOTE | 2022-03-29 09:53 | P.PCN ---
Date of Procedure: 03/29/22 Procedure(s) Performed: BRIEF HISTORY: Patient is a 56-year-old pleasant white female scheduled for an elective colonoscopy as a part of prior history of colon polyps and family history of colon cancer diagnosed in her brother in his early 50s. PROCEDURE PERFORMED: Colonoscopy with snare polypectomy. PREOPERATIVE DIAGNOSIS: Screening colon cancer and family history of colon cancer. IV sedation per Anesthesia. PROCEDURE: After informed consent was obtained, the patient, was brought into the endoscopy unit. IV sedation was administered by Anesthesia under continuous monitoring. Digital rectal examination was normal. Initially the Olympus CF-160 flexible video colonoscope was then inserted in the rectum, gradually advanced into the cecum without any difficulty. Careful examination was performed as the scope was gradually being withdrawn. Ileocecal valve and the appendiceal orifice were visualized and appeared normal. Prep was excellent. Mucosa of the cecum, ascending colon appeared normal. In the transverse colon there was a 5 mm sessile polyp removed by snare polypectomy. Rest of the, transverse colon, descending colon, sigmoid colon, and rectum appeared normal. Retroflexion was performed in the rectum and no lesions were seen. The patient tolerated the procedure well. IMPRESSION: 5 mm transverse colon polyp status post polypectomy Rest of the colon appeared normal RECOMMENDATIONS: Findings of this examination were discussed with the patient as well as her family. She was advised to follow with the biopsy results. If the biopsy reveals adenoma she can have a repeat colonoscopy in 5 years..
[2022-03-29 10:55] VITALS: BP 113/76; PULSE 69; RESP 15
== END 2022-03-29 11:40 | disposition home or self-care (01) ==
LOC: ORWHC2ENDO 08:04
PROVIDERS: ATTEND Internal Medicine Gastroenterology
DX: Z12.11 Encounter for screening for malignant neoplasm of colon (principal); D12.3 Benign neoplasm of transverse colon; Z86.010 Personal history of colon polyps; Z80.0 Family history of malignant neoplasm of digestive organs; J45.909 Unspecified asthma, uncomplicated; Z88.2 Allergy status to sulfonamides; Z88.3 Allergy status to other anti-infective agents; Z91.040 Latex allergy status; Z91.09 Other allergy status, other than to drugs and biological substances; Z88.6 Allergy status to analgesic agent; Z88.5 Allergy status to narcotic agent; Z91.012 Allergy to eggs; Z91.018 Allergy to other foods; Z79.899 Other long term (current) drug therapy; Z87.891 Personal history of nicotine dependence; Z82.49 Family history of ischemic heart disease and other diseases of the circulatory system; Z80.3 Family history of malignant neoplasm of breast
CPT/HCPCS: 88305; 45385; J2704

== ENCOUNTER → 2022-05-04 | Day surgery (SDC) | payer MEDICARE, OTHER ==
--- NOTE | 2022-05-11 14:25 | USB ---
Risk Values: Neelam 5 year model risk: 2.1%. NCI Lifetime model risk: 13.3%. Pathology Description: Location: axillary tail. Marker Left Behind. Needle Type: Celero Cores: 4 Gauge: 12 The procedure of ultrasound guided core biopsy was explained to the patient. Benefits, alternatives, and risks were discussed. An informed consent was then obtained. The patient was placed in supine positioning for imaging and for the procedure. The overlying skin was prepped and draped in usual sterile fashion. Lidocaine buffered with bicarbonate was used as anesthetic into the skin and subcutaneous tissue up to area of concern in the left axillary tail. Under ultrasound guidance, a 12-gauge vacuum assisted biopsy gun device was used to obtain 4 core samples. Following this, a biopsy clip was left in lesion. The patient tolerated the procedure well without any immediate complication. The patient was kept in the radiology department for short stay after the procedure and then discharged home in stable condition. Postprocedure mammogram: The patient was transferred to mammography for physician ordered post procedure mammogram for clip placement verification. Impression: Successful, uncomplicated ultrasound guided core biopsy of area of concern in the left axillary tail, full pathology results to follow. Pathology Results: Result: Benign, Fat necrosis. LEFT AXILLARY TISSUE, BIOPSY: Abscess with nodular fat necrosis, fibrinopurulent inflammatory exudate and focal foreign body-type giant cell reaction (see note). Final assessment pending AFB and GMS special stains with an addendum report to follow with results. Tissue Density: Left: The breast tissue is extremely dense which could obscure a lesion on mammography. Overall Assessment: Benign Assessment: MG diagnostic mammo LT wo CAD. - Left: Benign, BI-RAD 2. Management: Diagnostic Breast Ultrasound of the left breast in 6 months. Electronically signed and approved by: Mario Aceves M.D. Radiologis
== END ==
LOC: RADUSWWP 12:32
PROVIDERS: ATTEND Family Medicine
DX: L02.412 Cutaneous abscess of left axilla (principal); M79.89 Other specified soft tissue disorders; R92.8 Other abnormal and inconclusive findings on diagnostic imaging of breast
CPT/HCPCS: 88305; 88312; 77065; 19083; A4648

== ENCOUNTER → 2022-06-16 | Outpatient (CLI) | payer MEDICARE, OTHER ==
[2022-06-16 13:44] VITALS: BP 109/75; PULSE 90; RESP 18; TEMP 97.5
--- NOTE | 2022-06-16 14:10 | P.GSHP ---
History of Present Illness H&P Date: 06/16/22 Chief Complaint: abcess left axilla Nhung is a 56 year old female [place] [address]. This revealed extremely breast dense breast tissue. This was felt to be BIRADS 0 and digastric breast ultrasound of the left breast was recommended w ith targeted ultrasound of the axilla on the left. Ultrasound was performed on 820 322. This revealed a 2.6 x 2.4 cm hypoechoic mass with some indistinct spiculated margins at the axillary tail. core biopsy was recommended. the core biopsy was performed and 830 122. the core biopsy revealed abscess with nodular fat necrosis, fibropurulent inflammatory exudate focal foreign body type giant cell reaction. She states she noted swelling in her left axilla about a month ago and this initiated the biopsy. She was given an antibiotic. The swelling has resolved. It is not painful under her arm. She is not complaining of any lumps masses or nodules in her breast. She had bilateral breast implants 2010. Caffiene: 2 cups/day nicotine: < 1PPD chocolate: occasional BCP: 2 years in the remote past (used for bleeding endometriosis and ovarian cyst) Neelam risk evaluation: 5 year risk: 2.1% Lifetime risk 13.3% We have discussed chemo reduction for risk and she is declined at this time Family History: sister: breast cancer bilateral mastectomy in 30's brother: colon cancer, liver cancer mother: non hodgkins lymphoma paternal grandfather: skin cancer paternal grandmother: breast cancer maternal grandfather: pancreatic cancer Hormonal History: menarche: 14 M1, breast fed: yes; age at first : 17 menopause: hysterectomy at 35 Surgical history: hysterectomy arthoscopic left knee surgery lamenictomy C567 oral surgery exploratory lap breast implants Medical History: chronic migraine gets botox q 3 months for these fibromyalgia osetoarthritis Social History: nicotine: since 16 alcohol: none drugs: none - Constitutional Constitutional: Reports sweats, Denies chills, Denies fever - EENT Eyes: right blurred vision, right pain Ears: bilateral: tinnitus Ears, nose, mouth and throat: Reports headache - Breasts Breasts: bilateral: as per HPI - Cardiovascular Cardiovascular: Reports shortness of breath, Denies chest pain - Respiratory Respiratory: Denies cough, Denies 7 - Gastrointestinal Gastrointestinal: Reports constipation - Genitourinary (Female) Genitourinary: Denies dysuria, Denies hematuria - Menstruation Menstruation: Reports post hysterectomy - Musculoskeletal Musculoskeletal: Reports myalgias - Integumentary Integumentary: Reports pruritus, Reports rash - Neurological Neurological: Reports numbness, Reports weakness - Psychiatric Psychiatric: Reports anxiety, Reports depression - Endocrine Endocrine: Reports fatigue - Hematologic/Lymphatic Comment: none - Allergic/Immunologic Allergic/Immunologic: Reports as per HPI Past Medical History Past Medical History: Asthma, COPD, Fibromyalgia, Osteoarthritis (OA), Pneumonia, Skin Disorder Additional Past Medical History / Comment(s): hx kidney stones, eczema, chronic constipation, colon polyp, hiatal hernia, hypoglycemia, migraines-receives botox injections., brain lesions, possible tia's ., herniated cervicl discs. History of Any Multi-Drug Resistant Organisms: None Reported Past Surgical History: Back Surgery, Breast Surgery, Section, Hysterectomy, Orthopedic Surgery Additional Past Surgical History / Comment(s): LAMINECTOMY C-5,6,7. LEFT KNEE ARTHROSCOPY. BREAST IMPLANTS. LITHOTRIPSY., COLONOSCOPY, EGD. TYSHAWN BREAST BIOPSIES, colonoscopy, oral surgery. Nasal Biopsy, 2005, benign Past Anesthesia/Blood Transfusion Reactions: Family History of Problems w/ Anesthesia, Motion Sickness, Postoperative Nausea & Vomiting (PONV) Additional Past Anesthesia/Blood Transfusion Reaction / Comment(s): SEVERE VOMITING OF BILE AFTER COLONOSCOPY WITH ER VISIT., MOTHER HAS MEMORY ISSUES AFTER ANESTHESIA-TEMPORARY. Past Psychological History: Anxiety, Depression Additional Psychological History / Comment(s): PAST PANIC ATTACKS. Smoking Status: Current every day smoker Past Alcohol Use History: None Reported Additional Past Alcohol Use History / Comment(s): SMOKES 1/2 TO 1 PPD, STARTED AGE 16., HX OF QUITTING SEVERAL TIMES. Past Drug Use History: Marijuana Additional Drug Use History / Comment(s): OCC USE - Past Family History Mother Family Medical History: Cancer Additional Family Medical History / Comment(s): Mother had stents. Maternal grandfather: pancreatic cancer Sister(s) Family Medical History: Cancer Mother Sister(s) Family Medical History: Cancer Father Family Medical History: Coronary Artery Disease (CAD) Additional Family Medical History / Comment(s): 2 heart attacks. from second heart attack Medications and Allergies Home Medications Medication Instructions Recorded Confirmed Type Hydrocodone/Acetaminophen [[place] 1 tab PO TID PRN 04/25/14 06/16/22 History 10-325] traZODone HCL [traZODone] 150 mg PO HS 04/25/14 06/16/22 History Cyclobenzaprine [Flexeril] 10 mg PO HS 12/25/19 06/16/22 History Albuterol Inhaler [Ventolin Hfa 1 puff INHALATION DIRECTED PRN 03/25/22 06/16/22 History Inhaler] Allergies Allergy/AdvReac Type Severity Reaction Status Date / Time adhesive Allergy Rash/Hives Verified 06/16/22 13:40 bacitracin Allergy Rash/Hives Verified 06/16/22 13:40 [From Neosporin ([id number])] bacitracin zinc Allergy Rash/Hives Verified 06/16/22 13:40 [From Neosporin ([id number])] egg Allergy Unknown Verified 06/16/22 13:40 latex Allergy Rash/Hives Verified 06/16/22 13:40 neomycin sulfate Allergy Rash/Hives Verified 06/16/22 13:40 [From Neosporin ([id number])] polymyxin B Allergy Rash/Hives Verified 06/16/22 13:40 [From Neosporin ([id number])] aspirin AdvReac Vomiting Verified 06/16/22 13:40 banana AdvReac Vomiting Verified 06/16/22 13:40 oxycodone HCl [From Percocet] AdvReac Vomiting Verified 06/16/22 13:40 paper tape Allergy Rash/Hives Uncoded 06/16/22 13:40 Surgical - Exam Vital Signs Temp Pulse Resp BP Pulse Ox 97.5 F L 90 18 109/75 98 06/16/22 13:41 06/16/22 13:41 06/16/22 13:41 06/16/22 13:41 06/16/22 13:41 BMI: 19.9 - General well developed, well nourished, moderate distress - Neck trachea midline - Respiratory normal respiratory effort, clear to auscultation - Cardiovascular Heart Sounds: normal: S1, S2 - Abdomen Abdomen: soft, non tender, no guarding, no rigid, no rebound - Integumentary rash on hands - Neurologic no disoriented, no combative - Musculoskeletal normal gait - Psychiatric oriented to time, oriented to person, oriented to place, speech is normal, memory intact Breast Exam: BRA: 34D Section: Grade 2 ptosis Palpation: Right breast: Multi-positional exam implant in place no dominant masses or nodules of concern Right axilla: No adenopathy of concern Left breast: Implant in place, multi-positional exam no dominant masses or nodules of concern Left axilla: No adenopathy of concern Results Mammogram, ultrasound, and pathology reports are reviewed Assessment and Plan Assessment: Impression: chronic migraine gets botox q 3 months for these fibromyalgia osetoarthritis hysterectomy arthoscopic left knee surgery lamenictomy C567 oral surgery exploratory lap breast implants left axillary abcess/resolved Plan: rule out ruptured implant on the left MRI follow up after MRI CC: Dr. Das
== END ==
LOC: WWCWWP 13:31
PROVIDERS: ATTEND Surgery
DX: R92.2 Inconclusive mammogram (principal); M19.90 Unspecified osteoarthritis, unspecified site; F32.A Depression, unspecified; J44.9 Chronic obstructive pulmonary disease, unspecified; F41.0 Panic disorder [episodic paroxysmal anxiety]; M79.7 Fibromyalgia; F17.210 Nicotine dependence, cigarettes, uncomplicated; Z88.8 Allergy status to other drugs, medicaments and biological substances; Z91.012 Allergy to eggs; Z91.040 Latex allergy status; Z91.018 Allergy to other foods; Z88.6 Allergy status to analgesic agent; Z91.048 Other nonmedicinal substance allergy status; G43.909 Migraine, unspecified, not intractable, without status migrainosus; Z98.82 Breast implant status; Z90.710 Acquired absence of both cervix and uterus; Z96.652 Presence of left artificial knee joint; Z98.1 Arthrodesis status

== ENCOUNTER → 2022-07-13 | Outpatient (CLI) | payer MEDICARE, OTHER ==
--- NOTE | 2022-07-14 09:46 | BMR ---
EXAMINATION TYPE: MR breast BILAT wo/w con DATE OF EXAM: 07/13/2022 COMPARISON: 3D bilateral breast mammogram April 26, 2022 BI-RADS 0. Same day diagnostic left breast Limited ultrasound BI-RADS 4 HISTORY: Swollen area under left armpit, biopsy done, history of cyst removed from breast. No history of cancer, has family history of cancer. Left breast ultrasound May 04, 2022 with benign results, abscess. TECHNIQUE: A series of fat and water weighted images in the long and short axis views of both breasts are obtained in conjunction with dynamic contrast MRI with subtraction technique. The patient was i njected with 5.5 mL intravenous Gadavist gadolinium contrast. Three-dimensional and additional post processing imaging is created on independent workstation and reviewed during official interpretation of this study. FINDINGS: Heterogeneously dense fibroglandular tissue bilaterally is redemonstrated. Bilateral implan ts are seen and are symmetric in size. No suspicious infolding or linguini sign identified to suggest rupture. Artifact from biopsy clip towards the left axilla image 194 correlates with history. Some b enign-appearing bilateral axillary lymph nodes are identified. Dynamic postcontrast imaging shows mil d background enhancement. No abnormal skin thickening is present bilaterally. No pathologic enhancement or enhancing masses are noted. The chest wall is intact. IMPRESSION: No MRI evidence for invasive malignancy in either breast. BI-RADS 2 benign findings Recommendation: Patient is due for bilateral breast mammogram April 2023 to be back on annual schedu le.
== END | disposition home or self-care (01) ==
LOC: RADMRIMAIN 13:25
PROVIDERS: ATTEND Surgery
DX: T85.43XA Leakage of breast prosthesis and implant, initial encounter (principal)
CPT/HCPCS: C8908; A9585; 77049

== ENCOUNTER → 2022-08-18 | Outpatient (CLI) | payer MEDICARE, OTHER ==
[2022-08-18 13:07] VITALS: BP 113/78; PULSE 89; RESP 16; TEMP 98.2
--- NOTE | 2022-08-18 13:38 | P.PN ---
Subjective Progress Note Date: 08/18/22 Principal diagnosis: Left axillary abscess resolved Nhung is a 56 year old female [place] [address]. This revealed extremely dense breast tissue. This was felt to be BIRADS 0 and digastric breast ultrasound of the left breast was recommended with targeted ultrasound of the axilla on [place]. [place] [address]. This revealed a 2.6 x 2.4 cm hypoechoic mass with some indistinct spiculated margins at the axillary tail. core biopsy was recommended. the core biopsy was performed and [id number] 122. the core biopsy revealed abscess with nodular fat necrosis, fibropurulent inflammatory exudate focal foreign body type giant cell reaction. She states she noted swelling in her left axilla about a month ago and this initiated the biopsy. She was given an antibiotic. The swelling has resolved. It is not painful under her arm. She is not complaining of any lumps masses or nodules in her breast. She had bilateral breast implants 2010. A bilateral breast MRI was done on 07-13-22 which did not reveal any implant r upture or any evidence of breast cancer. She is complaining of some tenderness in the left breast since the biopsy. Caffiene: 2 cups/day nicotine: < 1PPD chocolate: occasional BCP: 2 years in the remote past (used for bleeding endometriosis and ovarian cyst) Neelam risk evaluation: 5 year risk: 2.1% Lifetime risk 13.3% We have discussed chemo reduction for risk and she is declined at this time Family History: sister: breast cancer bilateral mastectomy in 30's brother: colon cancer, liver cancer mother: non hodgkins lymphoma paternal grandfather: skin cancer paternal grandmother: breast cancer maternal grandfather: pancreatic cancer Hormonal History: menarche: 14 M1, breast fed: yes; age at first : 17 menopause: hysterectomy at 35 Surgical history: hysterectomy arthoscopic left knee surgery lamenictomy C567 oral surgery exploratory lap breast implants Medical History: chronic migraine gets botox q 3 months for these fibromyalgia osetoarthritis Social History: nicotine: since 16 alcohol: none drugs: none - Constitutional Constitutional: Reports sweats, Denies chills, Denies fever - EENT Eyes: right blurred vision, right pain Ears: bilateral: tinnitus Ears, nose, mouth and throat: Reports headache - Breasts Breasts: bilateral: as per HPI - Cardiovascular Cardiovascular: Reports shortness of breath, Denies chest pain - Respiratory Respiratory: Denies cough, Denies 7 - Gastrointestinal Gastrointestinal: Reports constipation - Genitourinary (Female) Genitourinary: Denies dysuria, Denies hematuria - Menstruation Menstruation: Reports post hysterectomy - Musculoskeletal Musculoskeletal: Reports myalgias - Integumentary Integumentary: Reports pruritus, Reports rash - Neurological Neurological: Reports numbness, Reports weakness - Psychiatric Psychiatric: Reports anxiety, Reports depression - Endocrine Endocrine: Reports fatigue - Hematologic/Lymphatic Comment: none - Allergic/Immunologic Allergic/Immunologic: Reports as per HPI Past Medical History Past Medical History: Asthma, COPD, Fibromyalgia, Osteoarthritis (OA), Pneumonia, Skin Disorder Additional Past Medical History / Comment(s): hx kidney stones, eczema, chronic constipation, colon polyp, hiatal hernia, hypoglycemia, migraines-receives botox injections., brain lesions, possible tia's ., herniated cervicl discs. History of Any Multi-Drug Resistant Organisms: None Reported Past Surgical History: Back Surgery, Breast Surgery, Section, Hysterectomy, Orthopedic Surgery Additional Past Surgical History / Comment(s): LAMINECTOMY C-5,6,7. LEFT KNEE ARTHROSCOPY. BREAST IMPLANTS. LITHOTRIPSY., COLONOSCOPY, EGD. TYSHAWN BREAST BIOPSIES, colonoscopy, oral surgery. Nasal Biopsy, 2005, benign Past Anesthesia/Blood Transfusion Reactions: Family History of Problems w/ Anesthesia, Motion Sickness, Postoperative Nausea & Vomiting (PONV) Additional Past Anesthesia/Blood Transfusion Reaction / Comment(s): SEVERE VOMITING OF BILE AFTER COLONOSCOPY WITH ER VISIT., MOTHER HAS MEMORY ISSUES AFTER ANESTHESIA-TEMPORARY. Past Psychological History: Anxiety, Depression Additional Psychological History / Comment(s): PAST PANIC ATTACKS. Smoking Status: Current every day smoker Past Alcohol Use History: None Reported Additional Past Alcohol Use History / Comment(s): SMOKES 1/2 TO 1 PPD, STARTED AGE 16., HX OF QUITTING SEVERAL TIMES. Past Drug Use History: Marijuana Additional Drug Use History / Comment(s): OCC USE - Past Family History Mother Family Medical History: Cancer Additional Family Medical History / Comment(s): Mother had stents. Maternal grandfather: pancreatic cancer Sister(s) Family Medical History: Cancer Mother Sister(s) Family Medical History: Cancer Father Family Medical History: Coronary Artery Disease (CAD) Additional Family Medical History / Comment(s): 2 heart attacks. from second heart attack Medications and Allergies Home Medications Medication Instructions Recorded Confirmed Type Hydrocodone/Acetaminophen [[place] 1 tab PO TID PRN 04/25/14 06/16/22 History 10-325] traZODone HCL [traZODone] 150 mg PO HS 04/25/14 06/16/22 History Cyclobenzaprine [Flexeril] 10 mg PO HS 12/25/19 06/16/22 History Albuterol Inhaler [Ventolin Hfa 1 puff INHALATION DIRECTED PRN 03/25/22 06/16/22 History Inhaler] Allergies Allergy/AdvReac Type Severity Reaction Status Date / Time adhesive Allergy Rash/Hives Verified 06/16/22 13:40 bacitracin Allergy Rash/Hives Verified 06/16/22 13:40 [From Neosporin ([id number])] bacitracin zinc Allergy Rash/Hives Verified 06/16/22 13:40 [From Neosporin ([id number])] egg Allergy Unknown Verified 06/16/22 13:40 latex Allergy Rash/Hives Verified 06/16/22 13:40 neomycin sulfate Allergy Rash/Hives Verified 06/16/22 13:40 [From Neosporin ([id number])] polymyxin B Allergy Rash/Hives Verified 06/16/22 13:40 [From Neosporin ([id number])] aspirin AdvReac Vomiting Verified 06/16/22 13:40 banana AdvReac Vomiting Verified 06/16/22 13:40 oxycodone HCl [From Percocet] AdvReac Vomiting Verified 06/16/22 13:40 paper tape Allergy Rash/Hives Uncoded 06/16/22 13:40 Assessment and Plan Assessment: Impression: chronic migraine gets botox q 3 months for these fibromyalgia osetoarthritis hysterectomy arthoscopic left knee surgery lamenictomy C567 oral surgery exploratory lap breast implants left axillary abcess/resolved Plan: rule out ruptured implant on the left MRI follow up after MRI CC: Dr. Das Objective - Vital Signs Vital signs: Vital Signs Temp 98.2 F 08/18/22 13:05 Pulse 89 08/18/22 13:05 Resp 16 08/18/22 13:05 BP 113/78 08/18/22 13:05 Pulse Ox 96 08/18/22 13:05 FiO2 Intake & Output 08/17/22 08/18/22 08/18/22 18:59 06:59 18:59 Weight 54.431 kg - Constitutional General appearance: Present: cooperative - EENT Eyes: Present: EOMI ENT: Present: hearing grossly normal - Neck Neck: Present: normal ROM - Respiratory Respiratory: bilateral: CTA - Cardiovascular Heart sounds: normal: S1, S2 - Integumentary Integumentary: Present: normal turgor - Musculoskeletal Musculoskeletal: Present: gait normal - Psychiatric Psychiatric: Present: A&O x's 3, appropriate affect, intact judgment & insight - Additional findings Additional findings: Breast Exam: BRA: 34D Section: Grade 2 ptosis Palpation: Right breast: Multi-positional exam implant in place no dominant masses or nodules of concern Right axilla: No adenopathy of concern Left breast: Implant in place, multi-positional exam no dominant masses or nodules of concern Left axilla: No adenopathy of concern Assessment and Plan Assessment: Assessment and Plan Assessment: Impression: chronic migraine gets botox q 3 months for these fibromyalgia osetoarthritis hysterectomy arthoscopic left knee surgery lamenictomy C567 oral surgery exploratory lap breast implants left axillary abcess/resolved MRI 07-13-22 reviewed of the breast Plan: ruled out ruptured implant on the left MRI fibrocystic breast changes left breast exam in October with appointment at that time secondary to fat patient has had left axillary core biopsy CC: Dr. Das
== END ==
LOC: WWCWWP 12:46
PROVIDERS: ATTEND Surgery
DX: M19.90 Unspecified osteoarthritis, unspecified site (principal); M79.7 Fibromyalgia; Z98.890 Other specified postprocedural states; Z98.82 Breast implant status; Z90.710 Acquired absence of both cervix and uterus; G43.709 Chronic migraine without aura, not intractable, without status migrainosus; Z91.048 Other nonmedicinal substance allergy status; Z88.6 Allergy status to analgesic agent; Z91.040 Latex allergy status; Z91.012 Allergy to eggs; Z88.1 Allergy status to other antibiotic agents; Z88.5 Allergy status to narcotic agent; Z87.891 Personal history of nicotine dependence

== ENCOUNTER 2022-09-07 14:59 | Emergency (ER) | payer MEDICARE, OTHER ==
[2022-09-07 15:03] VITALS: BP 113/76; PULSE 93; RESP 20; TEMP 97.6
[2022-09-07 15:27] LABS: Basophils # (A) 0.1 k/uL (0-0.2); Basophils % (A) 1 %; Eosinophils # (A) 0.2 k/uL (0-0.7); Eosinophils % (A) 3 %; HCT 42.4 % (34.0-46.0); HGB 14.2 gm/dL (11.4-16.0); Lymphocytes # (A) 3.8 k/uL (1.0-4.8); Lymphocytes % (A) 50 %; MCH 30.7 pg (25.0-35.0); MCHC 33.6 g/dL (31.0-37.0); MCV 91.4 fL (80.0-100.0); Mean Platelet Volume 7.2; Monocytes # (A) 0.4 k/uL (0-1.0); Monocytes % (A) 5 %; Neutrophils # (A) 2.9 k/uL (1.3-7.7); Neutrophils % (A) 39 %; Platelet Count 359 k/uL (150-450); RBC 4.64 m/uL (3.80-5.40); RDW 12.9 % (11.5-15.5); WBC 7.5 k/uL (3.8-10.6)
[2022-09-07 15:40] LABS: ALT 16 U/L (4-34); AST 24 U/L (14-36); African American GFR (CKD) >90 (>60 ml/min/1.73 sqM); Albumin 4.1 g/dL (3.5-5.0); Alkaline Phosphatase 103 U/L (38-126); Anion Gap 9 mmol/L; Blood Urea Nitrogen 11 mg/dL (7-17); Calcium 9.1 mg/dL (8.4-10.2); Carbon Dioxide 25 mmol/L (22-30); Chloride 107 mmol/L (98-107); Glucose 98 mg/dL (74-99); Magnesium 2.1 mg/dL (1.6-2.3); Non-African American GFR(CKD) >90 (>60 ml/min/1.73 sqM); Potassium 4.1 mmol/L (3.5-5.1); Sodium 141 mmol/L (137-145); Total Bilirubin 0.3 mg/dL (0.2-1.3); Total Protein 6.8 g/dL (6.3-8.2)
[2022-09-07 15:44] LABS: INR 0.9 (<1.2); Prothrombin Time 9.9 sec (9.0-12.0)
--- NOTE | 2022-09-07 16:08 | XR ---
EXAMINATION TYPE: XR chest 2V DATE OF EXAM: 09/07/2022 COMPARISON: 12/25/2019 HISTORY: 56-year-old female with chest pain TECHNIQUE: PA and lateral views FINDINGS: Heart normal size. Aorta and pulmonary vasculature within normal limits. Hyperinflation. No consolida tion or pleural effusion. IMPRESSION: Correlate for underlying COPD. No acute cardiopulmonary process.
== END 2022-09-07 16:52 | disposition left against medical advice (07) ==
LOC: EC 14:59
DX: Z53.21 Procedure and treatment not carried out due to patient leaving prior to being seen by health care provider (principal)
CPT/HCPCS: 36415; 71046; 80053; 83735; 84484; 85025; 85610; 85730; 93005

== ENCOUNTER → 2023-02-27 | Outpatient (CLI) | payer MEDICARE, OTHER ==
--- NOTE | 2023-03-03 08:35 | MR ---
EXAMINATION TYPE: MR brachial plexus LT wo/w con DATE OF EXAM: 02/27/2023 COMPARISON: None HISTORY: Left arm tingling on and off for 1 year, pain in the middle of pt's back-hx of back surgery in 2004 CONTRAST: Performed utilizing 5.5ml mL intravenous Gadavist gadolinium contrast. TECHNIQUE: Multiplanar, multiecho imaging on a 3.0 Martha magnet is performed through the left brachia l plexus . Findings: Axillary region appears normal. Normal vascular flow voids are evident. The brachial plexus appears n ormal. No mass effect on the left brachial plexus nerves are evident. Left cervical foramen as visual ized appear patent. Muscular signal appears normal. No suspicious osseous abnormality identified. Following contrast administration, no suspicious enhancement is evident. If additional workup would be of benefit, consider repeat MRI of the cervical spine IMPRESSIONS: 1. No suspicious masses or impingement on left brachial plexus.
== END | disposition home or self-care (01) ==
LOC: RADMRIMAIN 13:57
PROVIDERS: ATTEND Psychiatry & Neurology Neurology
DX: G54.0 Brachial plexus disorders (principal); R20.2 Paresthesia of skin
CPT/HCPCS: 71552; A9585

== ENCOUNTER → 2023-06-13 | Outpatient (CLI) | payer MEDICARE, OTHER ==
--- NOTE | 2023-06-13 14:50 | CT ---
EXAMINATION TYPE: CT ChestAbdPelvis w con CT DLP: 550.90 mGycm, Automated exposure control for dose reduction was used. DATE OF EXAM: 06/13/2023 2:14 PM COMPARISON: CT 05/03/2021. CLINICAL INDICATION:Female, 57 years old with history of Z72.0 TOBACCO USE R63.4 ABNORMAL WEIGHT LOS S; PHH, weight loss, constipation and hx of smoker Technique: Multiple axial images of the chest, abdomen, and pelvis were obtained. Two-dimensional cor onal and sagittal reconstructions were obtained. Contrast used:90ml mL of Isovue 300 with IV Contrast, Oral contrast used: with Oral Contrast Findings: CHEST: LUNGS/ PLEURA: No evidence for focal consolidation, pleural effusion or pneumothorax. Visualized port ions of the chest are without evidence for mass. Mild centrilobular emphysema changes. AIRWAY: Patent and unremarkable. HEART: Size within normal limits. MEDIASTINUM: No gross evidence of adenopathy. VASCULATURE: No aortic aneurysm. MUSCULOSKELETAL: No acute osseous abnormalities. SOFT TISSUES/LYMPH NODES: Bilateral breasts appear intact. LOWER NECK: No significant findings. ABDOMEN: ABDOMEN LIVER: No suspicious masses. GALLBLADDER AND BILE DUCTS: Unremarkable. PANCREAS: No suspicious masses. SPLEEN: Unremarkable. ADRENAL GLANDS: Unremarkable. KIDNEYS AND URETERS: No evidence of hydronephrosis or renal calculus. The ureters are unremarkable. PELVIS BLADDER: Unremarkable REPRODUCTIVE: The uterus is surgically absent. Left ovarian cyst measuring up to 2.1 cm. ABDOMEN & PELVIS STOMACH AND BOWEL: No evidence of bowel obstruction. The appendix is visualized and unremarkable. Ora l contrast extends into the colon distal transverse flexure. PERITONEUM: No evidence of pneumoperitoneum or free fluid. VASCULATURE: Mild atherosclerotic calcifications are present throughout the abdominal aorta and its b ranches. MUSCULOSKELETAL: No acute osseous abnormalities LYMPH NODES: No gross evidence for lymphadenopathy. SOFT TISSUE/ABDOMINAL WALL: Fat-containing umbilical hernia. IMPRESSION: No evidence for mass or lymphadenopathy to explain the patient's weight loss.
== END | disposition home or self-care (01) ==
LOC: RADCTMAIN 12:01
PROVIDERS: ATTEND Family Medicine
DX: R63.4 Abnormal weight loss (principal); Z72.0 Tobacco use; Z87.59 Personal history of other complications of pregnancy, childbirth and the puerperium
CPT/HCPCS: 71260; 74177; Q9967

== ENCOUNTER → 2023-06-26 | Outpatient (CLI) | payer MEDICARE, OTHER ==
--- NOTE | 2023-06-26 14:54 | MM ---
Reason for Exam: Additional evaluation requested from abnormal screening. Last screening mammogram was performed less than 1 month ago. Patient History: Menarche at age 14. First Full-Term at age 17. Right ovary removed at age 37. Hysterectomy at age 37. Postmenopausal. 05/04/2022, Benign US biopsy breast VAD LT on the left side. 2010, Bilateral Implants. Paternal grandmother had breast cancer. Sister had breast cancer. Risk Values: Neelam 5 year model risk: 2.6%. NCI Lifetime model risk: 15.2%. Prior Study Comparison: 05/04/2022 Left MG diagnostic mammo LT wo CAD., [facility]. 10/24/2022 Left MG 3D diag mammo imp w/cad LT, [facility]. 06/14/2023 Bilateral MG 3D screen mammo imp/cad., [facility]. Tissue Density: Left: The breast tissue is heterogeneously dense. This may lower the sensitivity of mammography. Findings: Analyzed By CAD. Area of concern in the left breast upper aspect is felt to represent focal fibroglandular tissue. No suspicious masses. Overall Assessment: Incomplete: need additional imaging evaluation, BI-RAD 0 Management: Diagnostic Breast Ultrasound of the left breast. Ultrasound imaging to confirm mammographic findings of dense fiber glandular tissue is recommended. Results were given to the patient verbally at the time of exam. Patient should continue monthly self-breast exams. A clinical breast exam by your physician is recommended on an annual basis. This exam should not preclude additional follow-up of suspicious palpable abnormalities. Note on Neelam scores and lifetime risk: 1. A Neelam score greater than 3% is considered moderate risk. If this is the case, consider specialist referral to assess eligibility for a risk reducing agent. 2. If overall lifetime risk for the development of breast cancer is 20% or higher, the patient may qualify for future screening with alternating mammogram and breast MRI. Electronically signed and approved by: Lion Ortega DO
--- NOTE | 2023-06-26 15:11 | USB ---
Reason for Exam: Additional evaluation requested from prior study. Patient History: Menarche at age 14. First Full-Term at age 17. Right ovary removed at age 37. Hysterectomy at age 37. Postmenopausal. 05/04/2022, Benign US biopsy breast VAD LT on the left side. 2010, Bilateral Implants. Paternal grandmother had breast cancer. Sister had breast cancer. Risk Values: Neelam 5 year model risk: 2.6%. NCI Lifetime model risk: 15.2%. Technique: Method: Targeted. Prior Study Comparison: 04/26/2022 Left US breast limited LT, [facility]. 05/04/2022 Left MG diagnostic mammo LT wo CAD., [facility]. 10/24/2022 Left MG 3D diag mammo imp w/cad LT, [facility]. 06/14/2023 Bilateral MG 3D screen mammo imp/cad., [facility]. Findings: The upper outer quadrant of the left breast, the axilla of the left breast and the retroareolar of the left breast were scanned. Technique utilized:US breast workup limited LT Image; Ultrasound imaging of: All 4 quadrants, the retroareolar region and axilla. No evidence for organizing fluid collection or mass. There is a 3 mm anechoic cyst at 2:00 to 2 cm from the nipple.. No suspicious masses. A calcification is present in the FHL. Overall Assessment: Benign, BI-RAD 2 Management: Screening Mammogram of both breasts in 1 year. A clinical breast exam by your physician is recommended on an annual basis and results should be correlated with mammographic findings. This exam should not preclude additional follow-up of suspicious palpable abnormalities. Results were given to the patient verbally at the time of exam. Electronically signed and approved by: Lion Ortega DO
== END | disposition home or self-care (01) ==
LOC: RADMAMWWP 14:16
PROVIDERS: ATTEND Family Medicine
DX: R92.8 Other abnormal and inconclusive findings on diagnostic imaging of breast (principal); Z78.0 Asymptomatic menopausal state; Z80.3 Family history of malignant neoplasm of breast; Z98.82 Breast implant status
CPT/HCPCS: 77061; 77065

== ENCOUNTER → 2023-07-21 | Day surgery (SDC) | payer MEDICARE, OTHER ==
[2023-07-19 15:10] VITALS: BMI 18.6
== END ==
LOC: ORWHC2ENDO 10:26
PROVIDERS: ATTEND Internal Medicine Gastroenterology
DX: Z53.8 Procedure and treatment not carried out for other reasons (principal); R63.4 Abnormal weight loss

== ENCOUNTER → 2023-08-08 | Outpatient (CLI) | payer MEDICARE, OTHER ==
--- NOTE | 2023-08-08 22:55 | MR ---
EXAMINATION TYPE: MR brain and iac wo/w con DATE OF EXAM: 08/08/2023 5:44 PM CLINICAL INDICATION:Female, 57 years old with history of G43.709 MIGRAINE R42 DIZZINESS; PHH, Dizzin ess, migraines, brain lesions compare to prior. COMPARISON: 09/19/2017. TECHNIQUE: Multi planar, multi sequence imaging was performed through the brain. Specialized thin s equences were obtained through the internal auditory canals. Pre-and post gadolinium sequences were obtained. 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 Scattered white matter changes which is not significantly change d from 2018. The smith-white junctions, ventricular system, and cisterns appear unremarkable. Stable scattered foci of high T2 signal intensity are seen within the periventricular white matter. Midline structures show no abnormality. Diffusion-weighted imaging shows no evidence of restricted diffusion . The susceptibility weighted images do not reveal any evidence for micro-hemorrhage. Left parietal d evelopmental venous anomaly. The bone marrow signal is within normal limits. Paranasal sinuses and mastoid air cells: Mild scattered paranasal sinus disease. Visualized orbits: Orbital contents are intact. After administration of gadolinium, no abnormal enhancement is seen. The internal auditory canal sequences demonstrate no significant irregularity. The 7th cranial nerve s, 8 cranial nerves, and cerebellar pontine angles appear unremarkable. After the administration yady olinium, no abnormal enhancement is seen within the internal auditory canals. Vascular loop: None. IMPRESSION: 1. No evidence of intracranial mass nor acute/subacute CVA. 2. Stable pineal gland cyst. 3. Stable white matter changes which are nonspecific. 4. No evidence of internal auditory canal abnormality. 5. Left parietal developmental venous anomaly.
== END | disposition home or self-care (01) ==
LOC: RADMRIMAIN 16:26
PROVIDERS: ATTEND Psychiatry & Neurology Neurology
DX: G43.709 Chronic migraine without aura, not intractable, without status migrainosus (principal); E34.8 Other specified endocrine disorders; R42 Dizziness and giddiness; R90.82 White matter disease, unspecified
CPT/HCPCS: 70553; A9585

== ENCOUNTER 2024-04-24 09:30 | Emergency (ER) | payer MEDICARE, OTHER ==
[2024-04-24] MEDS ORDERED: SODIUM CHLORIDE 0.9% 1,000 ML BAG ONE (10:40)
[2024-04-24] MEDS ORDERED: ONDANSETRON 4 MG/2 ML VIAL ONE (10:42)
[2024-04-24] MEDS ORDERED: KETOROLAC 15 MG/ML 1 ML VIAL ONE (10:42)
[2024-04-24] MEDS ORDERED: MORPHINE SULFATE 2 MG/ML SYRINGE ONE (10:42)
[2024-04-24] MEDS ORDERED: ONDANSETRON 4 MG ODT STARTER PACK 2 TAB BTL ONE (13:40)
--- NOTE | 2024-05-14 13:05 | CT ---
Patient: Nhung Church Ordering Physician: Unknown, Unknown ID: [id number] Phone, Pager: Phone: N/A Pager: N/A : [phone] Age/Gender: 58Y, F Primary Location: N/A Procedure: CT abdomen pelvis w con Study Date: 04/24/2024 11:18:00 AM EXAMINATION TYPE: CT abdomen pelvis w con DATE OF EXAM: 04/24/2024 COMPARISON: CT chest abdomen pelvis 06/13/2023 INDICATION: Right lower quadrant pain and nausea DLP: 468.4 mGycm, Automated exposure control for dose reduction was used. CONTRAST: 90 mL of Isovue 300. Study performed without Oral Contrast TECHNIQUE: Axial images were obtained from above the diaphragm to the pubic rami in the axial plane a t 5 mm thick sections. Reconstructed images are reviewed on the computer in the coronal plane. FINDINGS: Limited CT sections are obtained the lung bases. Some streak opacities in the anterior medial right lower lung field could be some atelectasis. Series 201 image 1. Lung bases are otherwise clear. CT ABDOMEN: Liver: Normal Spleen: Normal Pancreas: Normal Adrenal glands: The adrenal glands are normal. Gallbladder: Normal Kidneys: No masses are evident. No hydronephrosis is present. No cysts are present. Delayed images were obtained through the kidneys, which remain unremarkable. Aorta: Mild Vascular calcification is within the aorta. Inferior vena cava: Normal. CT PELVIS: Loops of bowel within the abdomen and pelvis are normal. The study is without oral contrast limit ing bowel evaluation. Some mild fluid-filled ileum just above the terminal ileum may be present. No w all thickening or inflammatory changes adjacent. Consider some mild focal ileus. Appendix: Normal as visualized. No inflammatory changes are evident. No dilated appendix is evident. Urinary bladder: Decompressed with limited evaluation. Genitourinary structures: Uterus and ovaries are not identified. Osseous structures: No suspicious lytic or sclerotic lesions. IMPRESSION: 1. No suspicious changes to suggest acute appendicitis. 2. There may be some mild focal ileus of the distal ileum. 3. Some mild atelectasis may be within the medial right middle lobe. Follow-up can be performed
== END 2024-04-24 13:47 | disposition home or self-care (01) ==
LOC: EC 09:30
DX: K56.7 Ileus, unspecified (principal)
CPT/HCPCS: 74177; 96361; 96374; 96375; 99284

== ENCOUNTER → 2024-06-26 | Outpatient (CLI) | payer MEDICARE, OTHER ==
--- NOTE | 2024-06-26 17:06 | MR ---
EXAMINATION TYPE: MR angio head wo con DATE OF EXAM: 06/26/2024 4:33 PM CLINICAL INDICATION: Female, 58 years old with history of I67.1; PHH, Family history of aneurysm, Diz ziness, Pressure inside of head, Bilateral weakness/numbness COMPARISON: MRI brain same day. Technique: 3-D [id number] Axial with MIP reconstruction created on a separate workstation.. IV Contrast: None cc Findings: Vertebral arteries: The vertebral arteries are patent. Vertebral arteries are: Codominant. Basilar artery: The basilar artery is intact. The basilar artery bifurcation is normal. Internal Carotid arteries: The cervical, petrous, cavernous and supraclinoid segments are normal. ISRA: Patent with no evidence of aneurysm. ACOM: Present without evidence of aneurysm. MCA: Patent with no evidence of aneurysm. HEADING MACHINE OPERATOR: Patent with no evidence of aneurysm. PCOM: Hypoplastic bilaterally. IMPRESSION: No evidence of aneurysm or significant stenosis. [facility], , 06/26/2024 5:04 PM
--- NOTE | 2024-06-26 17:10 | MR ---
EXAMINATION TYPE: MR brain and iac wo/w con DATE OF EXAM: 06/26/2024 5:02 PM CLINICAL INDICATION: Female, 58 years old with history of MIGRAINES WITH AURA; PHH, Family history of aneurysm, Dizziness, Pressure inside of head, Bilateral weakness/numbness COMPARISON: Same day MR TECHNIQUE: Multi planar, multi sequence imaging was performed through the brain. Specialized thin s equences were obtained through the internal auditory canals. Pre-and post gadolinium sequences were obtained. MR contrast: IV Contrast: 5.5 cc Gadavist FINDINGS: Pineal gland 11 mm cyst suggested which is high T2 low T1 signal. The smith-white junctions, ventricular system, and cisterns appear unremarkable. Scattered foci of h igh T2 signal intensity are seen within the periventricular white matter. Midline structures show no abnormality. Diffusion-weighted imaging shows no evidence of restricted diffusion. The susceptibility weighted images do not reveal any evidence for micro-hemorrhage. The bone marrow signal is within normal limits. Paranasal sinuses and mastoid air cells: Mild scattered paranasal sinus disease. Visualized orbits: Orbital contents are intact. After administration of gadolinium, no abnormal enhancement is seen. The internal auditory canal sequences demonstrate no significant irregularity. The 7th cranial nerve s, 8 cranial nerves, and cerebellar pontine angles appear unremarkable. After the administration yady olinium, no abnormal enhancement is seen within the internal auditory canals. Vascular loop: None. IMPRESSION: 1. No evidence of intracranial mass nor acute/subacute CVA. 2. No evidence of internal auditory canal abnormality. 3. Nonspecific white matter changes, likely secondary to small vessel ischemic disease. [facility], , 06/26/2024 5:08 PM
== END | disposition home or self-care (01) ==
LOC: RADMRIMAIN 15:54
PROVIDERS: ATTEND Psychiatry & Neurology Neurology
CPT/HCPCS: 70544; 70553

== ENCOUNTER → 2024-09-03 | Outpatient (CLI) | payer MEDICARE, OTHER ==
--- NOTE | 2024-09-09 07:27 | MM ---
Reason for Exam: Screening (asymptomatic). Last mammogram was performed 1 year(s) and 2 month(s) ago. Patient History: Menarche at age 14. First Full-Term at age 17. Right ovary removed at age 37. Hysterectomy at age 37. Postmenopausal. 05/04/2022, Benign US biopsy breast VAD LT on the left side. 2010, Bilateral Implants. Paternal grandmother had breast cancer. Sister had breast cancer. Risk Values: Neelam 5 year model risk: 2.7%. NCI Lifetime model risk: 14.8%. Prior Study Comparison: 10/24/2022 Left MG 3D diag mammo imp w/cad LT, [facility]. 06/14/2023 Bilateral MG 3D screen mammo imp/cad., [facility]. 06/26/2023 Left MG 3D work up w/cad LT, [facility]. Tissue Density: The breasts are heterogeneously dense, which may obscure small masses. Findings: Analyzed By CAD. Bilateral breast implants appear intact. Right breast: There is no suspicious group of microcalcifications or new suspicious mass. Benign-appearing calcifications right breast. Left breast: There is no suspicious group of microcalcifications or new suspicious mass. Benign-appearing calcifications left breast. Overall Assessment: Negative, BI-RAD 1 Management: Screening Mammogram of both breasts in [address] [facility] will attempt to contact patient to return for supplemental views and ultrasound if indicated. Patient should continue monthly self-breast exams. A clinical breast exam by your physician is recommended on an annual basis. This exam should not preclude additional follow-up of suspicious palpable abnormalities. Note on Neelam scores and lifetime risk: 1. A Neelam score greater than 3% is considered moderate risk. If this is the case, consider specialist referral to assess eligibility for a risk reducing agent. 2. If overall lifetime risk for the development of breast cancer is 20% or higher, the patient may qualify for future screening with alternating mammogram and breast MRI. [facility], , 09/09/2024 7:24 AM. Electronically signed and approved by: Lion Ortega DO
== END | disposition home or self-care (01) ==
LOC: RADMAMWWP 10:46
PROVIDERS: ATTEND Family Medicine
DX: Z12.31 Encounter for screening mammogram for malignant neoplasm of breast (principal); Z90.721 Acquired absence of ovaries, unilateral; Z78.0 Asymptomatic menopausal state; Z80.3 Family history of malignant neoplasm of breast; R92.333 Mammographic heterogeneous density, bilateral breasts; Z98.82 Breast implant status
CPT/HCPCS: 77063; 77067

== ENCOUNTER → 2024-09-03 | Outpatient (CLI) | payer MEDICARE, OTHER ==
--- NOTE | 2024-09-03 11:48 | CTL ---
EXAMINATION TYPE: CT Low Dose Lung DATE OF EXAM ORDERED: 09/03/2024 COMPARISON: CT chest abdomen pelvis 06/13/2023 CLINICAL INDICATION: Female, 58 years old with history of F17.210 nicotine dependence; PHH, Lung CA s creening, Lung cancer screening, History of Smoking/tobacco use. TECHNIQUE: Low dose computed tomography scan was performed through the chest at 1 mm thick sections a nd reconstructed images in multiple planes at 1 mm and [address] DLP: [address] CTDI: 1.4 mGy Automated exposure control for dose reduction was used. CT DIAGNOSTIC QUALITY: Satisfactory FINDINGS: Nodules: Stable anterior right middle lobe 7 mm pulmonary nodular densities (series 6, image 40 and 38). LUNGS: COPD: Severity: None Fibrosis: Severity: None Lymph nodes: None Other findings: Minimal dependent left lower lobe subsegmental atelectasis. Mild biapical pleural-par enchymal scarring. Linear scarring or atelectasis within the medial aspect of the lingula. Linear ate lectasis within the anterior aspect of the right middle lobe. RIGHT PLEURAL SPACE: Effusion: None Calcification: None Thickening: None Pneumothorax: None LEFT PLEURAL SPACE: Effusion: None Calcification: None Thickening: None Pneumothorax: None HEART: Heart Size: Normal Coronary Calcification: None Pericardial Effusion: None OTHER FINDINGS: Upper abdomen: None Bony thorax: None Supraclavicular region: None Other: Bilateral breast prosthesis. IMPRESSION: Stable anterior right middle lobe 7 mm pulmonary nodular densities. Probable scarring. CT LUNG RAD AND CT CHEST RECOMMENDATION: Lung-Rad 3 Probably Benign: 6 month follow-up LDCT. S Modifier (other clinically significant findings): None [facility], , 09/03/2024 11:46 AM
== END | disposition home or self-care (01) ==
LOC: RADCTMAIN 11:06
PROVIDERS: ATTEND Family Medicine
DX: Z12.2 Encounter for screening for malignant neoplasm of respiratory organs (principal); F17.210 Nicotine dependence, cigarettes, uncomplicated; J98.4 Other disorders of lung
CPT/HCPCS: 71271

== ENCOUNTER → 2025-01-07 | Outpatient (CLI) | payer MEDICARE, OTHER ==
[2025-01-07 15:32] LABS: NT-Pro-B-Type Natriuretic Pept 66 pg/mL (0-125)
[2025-01-07 15:46] LABS: Chol/HDL Ratio 3.23 Ratio; LDL Cholesterol,Calculated 113.2 mg/dL (0.0-131.0); VLDL Calculation 18.56 mg/dL (5.00-40.00)
== END | disposition home or self-care (01) ==
LOC: LABWHC1 10:32
PROVIDERS: ATTEND Student in an Organized Health Care Education/Training Program
DX: E11.9 Type 2 diabetes mellitus without complications (principal); I50.9 Heart failure, unspecified; E78.5 Hyperlipidemia, unspecified; E03.9 Hypothyroidism, unspecified
CPT/HCPCS: 36415; 80061; 83036; 83880; 84443

== ENCOUNTER → 2025-02-25 | Outpatient (CLI) | payer MEDICARE, OTHER ==
[2025-02-25 19:25] LABS: HCT 41.2 % (37.2-46.3); MCH 29.5 pg (27.0-32.0); MCHC 31.6 g/dL (32.0-37.0); MCV 93.6 FL (80.0-97.0); Mean Platelet Volume 8.7 FL (9.5-12.2); NRBC Per 100 WBC 0 X 10*3/uL (0.00-0.01); Platelet Count 341 X 10*3/uL (140-440); RDW 14.8 % (11.5-14.5); WBC 8.23 X 10*3/uL (4.50-10.00)
[2025-02-25 20:58] LABS: ALT 28 U/L (8-44); AST 24 U/L (13-35); Albumin 4.2 g/dL (3.8-4.9); Albumin/Globulin Ratio 1.68 Ratio (1.60-3.17); Alkaline Phosphatase 127 U/L (41-126); BUN/Creat Ratio 19.14 Ratio (12.00-20.00); Blood Urea Nitrogen 13.4 mg/dL (9.0-27.0); Calcium 9.6 mg/dL (8.7-10.3); Carbon Dioxide 27.4 mmol/L (21.6-31.8); Chloride 106 mmol/L (96-109); Globulin 2.5 g/dL (1.6-3.3); Glucose 85 mg/dL (70-110); Potassium 4.5 mmol/L (3.5-5.5); Sodium 144 mmol/L (135-145); Total Bilirubin 0.3 mg/dL (0.3-1.2); Total Protein 6.7 g/dL (6.2-8.2)
== END | disposition home or self-care (01) ==
LOC: LABWHC1 14:47
PROVIDERS: ATTEND Student in an Organized Health Care Education/Training Program
DX: D72.9 Disorder of white blood cells, unspecified (principal); R79.89 Other specified abnormal findings of blood chemistry
CPT/HCPCS: 36415; 80053; 85027

== ENCOUNTER → 2025-03-19 | Outpatient (CLI) | payer MEDICARE, OTHER ==
--- NOTE | 2025-03-19 09:46 | US ---
EXAMINATION TYPE: US abdomen comp/pelvis limited DATE OF EXAM: 03/19/2025 COMPARISON: NONE CLINICAL INDICATION: Female, 59 years old with history of R63.5 M79.89 R91.1 R14.0; Bloating TECHNIQUE: Grayscale color Doppler imaging of the abdomen and pelvis. FINDINGS: EXAM MEASUREMENTS: Liver Length: 17.4 cm Gallbladder Wall: .2 cm CBD: .3 cm Spleen: 9.0 cm Right Kidney: 9.1 x 3.9 x 4.2 cm Left Kidney: 9.5 x 5.5 x 3.8 cm Pancreas: Tail is obscured by bowel gas Liver: wnl Gallbladder: 11.3 cm CBD: wnl Spleen: wnl Right Kidney: wnl Left Kidney: wnl Upper IVC: wnl Abd Aorta: wnl Bladder: anechoic Bilateral Jets Seen no IMPRESSION: No evidence for acute process. [facility], , 03/19/2025 9:44 AM
--- NOTE | 2025-03-19 11:48 | CT ---
EXAMINATION TYPE: CT abdomen pelvis w con DATE OF EXAM: 03/19/2025 11:32 AM COMPARISON: 04/24/2024 CLINICAL INDICATION: Female, 59 years old with history of R63.5 WEIGHT LOSS M79.89 LEG SWELLING; weig ht gain/bloated TECHNIQUE: CT of the abdomen and pelvis after IV contrast. Delayed images through the kidneys. Sagit jhony and coronal reformats were created on a separate workstation. Contrast used:100 ml mL of Isovue 300 with IV Contrast, Oral contrast used: with Oral Contrast CT DLP: combined 714.5 mGycm, Automated exposure control for dose reduction was used. FINDINGS: LOWER CHEST: Reported separately. ABDOMEN LIVER: Enlarged at 20.8 cm, possibly due to the presence of a More's lobe. GALLBLADDER AND BILE DUCTS: Unremarkable. PANCREAS: Unremarkable. SPLEEN: Unremarkable. ADRENAL GLANDS: Unremarkable. KIDNEYS AND URETERS: No evidence of hydronephrosis or renal calculus. The ureters are unremarkable. Cortical defect lateral lower pole left kidney is unchanged. PELVIS BLADDER: Minimal circumferential wall thickening REPRODUCTIVE: Uterus surgically absent. Numerous pelvic phleboliths. Right ovary not clearly seen. Le ft ovary is visualized with a 1.9 cm cystic structure unchanged from 04/24/2024. Annual surveillance u ltrasound can be performed in a postmenopausal female. Mild pelvic floor relaxation. ABDOMEN & PELVIS STOMACH AND BOWEL: No evidence of bowel obstruction. Oral contrast progressed to the rectum. Minimal scattered stool. Normal appendix. No pericolonic inflammatory change. PERITONEUM/RETROPERITONEUM: No evidence of pneumoperitoneum or free fluid. VASCULATURE: No evidence of aortic aneurysm. MUSCULOSKELETAL: No acute osseous abnormalities LYMPH NODES: A prominent 8 mm mid mesenteric lymph node, coronal image 31 is nonspecific, probably re active/post inflammatory. Otherwise, no mesenteric or retroperitoneal lymphadenopathy seen. SOFT TISSUE/ABDOMINAL WALL: Unremarkable IMPRESSION: 1. Minimal circumferential bladder wall thickening may be chronic for the patient. Correlate to excl ude cystitis. 2. A stable 1.9 cm left ovarian cyst. In a postmenopausal patient, annual surveillance ultrasound can be performed. [facility], , 03/19/2025 11:46 AM
--- NOTE | 2025-03-19 11:56 | CT ---
EXAMINATION TYPE: CT chest wo con DATE OF EXAM: 03/19/2025 11:42 AM COMPARISON: 09/03/2024 CLINICAL INDICATION: Female, 59 years old with history of R91.1 PULMONARY NODULE; PHH, f/u nodule TECHNIQUE: CT of the chest without IV contrast. Sagittal and coronal reformats were created for revie w. MIP was performed on a separate workstation. CT DLP: combined 714.5 mGycm, Automated exposure control for dose reduction was used. FINDINGS: Bilateral retropectoral breast implants. Heart normal size without pericardial effusion. No skin thickening coronary calcifications are seen. Aorta normal caliber with conventional vessel branching anatomy. No thoracic lymphadenopathy by CT size criteria. There may be some mild underlying emphysematous change. Prominent strandy opacities in the lower lung s along with some mild groundglass and reticular change may be slightly increased in the interval. Focal volume loss and opacification medial right middle lobe is unchanged. Bandlike atelectasis new w ithin the inferior lingula. Biapical pleural-parenchymal scarring. A 7 mm anterior right middle lobe pulmonary nodule, axial image 37 remains unchanged for 7 months. An additional one-year surveillance follow-up can be performed. Abdomen reported separately. Bones: No osseous destructive process. IMPRESSION: 1. COPD with mild emphysema. A 7 mm right middle lobe pulmonary nodule is stable for 7 months. An add itional one-year surveillance follow-up can be performed. 2. Some basilar patchy, groundglass, and reticular change appears to have increased from prior exam. Consider resolving versus developing infectious or aspiration pneumonitis versus an interstitial pneu monitis such as NSIP or DIP. This can also be reassessed at follow-up. 3. Abdomen and pelvis reported separately. Follow up recommendations for incidental pulmonary nodules, if there are any, are per [employer] or [employer]. [facility], , 03/19/2025 11:53 AM
== END | disposition home or self-care (01) ==
LOC: RADUSWWP 08:52
PROVIDERS: ATTEND Family Medicine
DX: R91.1 Solitary pulmonary nodule (principal); N83.202 Unspecified ovarian cyst, left side; J43.9 Emphysema, unspecified; R63.5 Abnormal weight gain; M79.89 Other specified soft tissue disorders; Z78.0 Asymptomatic menopausal state
CPT/HCPCS: 76700; 76857; 71250; 74177; Q9967

== ENCOUNTER 2025-03-26 10:19 | Emergency (ER) | payer MEDICARE, OTHER ==
[2025-03-26 10:30] VITALS: RESP 18; TEMP 98
--- NOTE | 2025-03-26 11:03 | ED ---
Recheck HPI - General Chief Complaint: Recheck/Abnormal Lab/Rx Stated Complaint: Irrg Labs Time Seen by Provider: 03/26/25 10:34 Source: patient, RN notes reviewed Mode of arrival: ambulatory Limitations: no limitations - History of Present Illness Onset/Timin -: days(s) Associated Symptoms: shortness of breath - Related Data Home Medications Medication Instructions Recorded Confirmed Hydrocodone/Acetaminophen [[place] 1 tab PO TID PRN 04/25/14 07/19/23 10-325] traZODone HCL [traZODone] 150 mg PO HS 04/25/14 07/19/23 Cyclobenzaprine [Flexeril] 10 mg PO HS 12/25/19 07/19/23 Albuterol Inhaler [Ventolin Hfa 1 puff INHALATION DIRECTED PRN 03/25/2207/05 Inhaler] Allergies Allergy/AdvReac Type Severity Reaction Status Date / Time adhesive Allergy Rash/Hives Verified 03/26/25 10:30 bacitracin Allergy Rash/Hives Verified 03/26/25 10:30 [From Neosporin ([id number])] bacitracin zinc Allergy Rash/Hives Verified 03/26/25 10:30 [From Neosporin ([id number])] egg Allergy Unknown Verified 03/26/25 10:30 latex Allergy Rash/Hives Verified 03/26/25 10:30 neomycin sulfate Allergy Rash/Hives Verified 03/26/25 10:30 [From Neosporin ([id number])] polymyxin B Allergy Rash/Hives Verified 03/26/25 10:30 [From Neosporin ([id number])] aspirin AdvReac Vomiting Verified 03/26/25 10:30 banana AdvReac Vomiting Verified 03/26/25 10:30 oxycodone HCl [From Percocet] AdvReac Vomiting Verified 03/26/25 10:30 paper tape Allergy Rash/Hives Uncoded 03/26/25 10:30 Review of Systems ROS Statement: Those systems with pertinent positive or pertinent negative responses have been documented in the HPI. ROS Other: All systems not noted in ROS Statement are negative. Past Medical History Past Medical History: Asthma, COPD, Fibromyalgia, Osteoarthritis (OA), Pneumonia, Skin Disorder Additional Past Medical History / Comment(s): hx kidney stones, eczema, chronic constipation, colon polyp, hiatal hernia, hypoglycemia, migraines-receives botox injections., brain lesions, possible tia's ., herniated cervicl discs. History of Any Multi-Drug Resistant Organisms: None Reported Past Surgical History: Back Surgery, Breast Surgery, Section, Hystere ctomy, Orthopedic Surgery Additional Past Surgical History / Comment(s): LAMINECTOMY C-5,6,7. LEFT KNEE ARTHROSCOPY. BREAST IMPLANTS. LITHOTRIPSY., COLONOSCOPY, EGD. TYSHAWN BREAST BIOPSIES, colonoscopy, oral surgery. Nasal Biopsy, 2005, benign Past Anesthesia/Blood Transfusion Reactions: Family History of Problems w/ Anesthesia, Motion Sickness, Postoperative Nausea & Vomiting (PONV) Additional Past Anesthesia/Blood Transfusion Reaction / Comment(s): SEVERE VOMITING OF BILE AFTER COLONOSCOPY WITH ER VISIT., MOTHER HAS MEMORY ISSUES AFTER ANESTHESIA-TEMPORARY. Past Psychological History: Anxiety, Depression Smoking Status: Former smoker Past Alcohol Use History: Daily Past Drug Use History: Marijuana - Past Family History Mother Family Medical History: Cancer Additional Family Medical History / Comment(s): Mother had stents. Maternal grandfather: pancreatic cancer Sister(s) Family Medical History: Cancer Mother Sister(s) Family Medical History: Cancer Father Family Medical History: Coronary Artery Disease (CAD) Additional Family Medical History / Comment(s): 2 heart attacks. from second heart attack General Exam Limitations: no limitations General appearance: alert, in no apparent distress Head exam: Present: atraumatic, normocephalic, normal inspection Eye exam: Present: normal appearance, PERRL, EOMI. Absent: scleral icterus, conjunctival injection, periorbital swelling ENT exam: Present: normal exam, mucous membranes moist Neck exam: Present: normal inspection. Absent: tenderness, meningismus, lymphadenopathy Respiratory exam: Present: normal lung sounds bilaterally. Absent: respiratory distress, wheezes, rales, rhonchi, stridor, accessory muscle use, decreased breath sounds, prolonged expiratory Cardiovascular Exam: Present: regular rate, normal rhythm, normal heart sounds. Absent: systolic murmur, diastolic murmur, rubs, gallop, clicks GI/Abdominal exam: Present: soft, normal bowel sounds. Absent: distended, tenderness, guarding, rebound, rigid Extremities exam: Present: full ROM, normal capillary refill, pedal edema (Mild LLE edema without pitting or stasis dermatitis), calf tenderness (Positive BLE calf tenderness), other (BLE distal neurovascular and motor function intact. Posterior tibialis pulse +2 bilaterally). Absent: tenderness, joint swelling Back exam: Present: normal inspection. Absent: tenderness (Negative mid back tenderness between the scapula) Neurological exam: Present: alert, oriented X3, CN II-XII intact Psychiatric exam: Present: normal affect, normal mood Skin exam: Present: warm, dry, intact, normal color. Absent: rash Course Vital Signs 03/26/25 10:27 Temperature 98 F Pulse Rate 77 Respiratory 18 Rate Blood Pressure 134/84 O2 Sat by Pulse 96 Oximetry Medical Decision Making - Medical Decision Making Was pt. sent in by a medical professional or institution (, PA, INTERACTIVE MEDIA MARKETING SPECIALIST, urgent care, hospital, or usp...) When possible be specific @ -Dr. Harrison Did you speak to anyone other than the patient for history (EMS, parent, family, police, friend...)? What history was obtained from this source @ -[No] Did you review nursing and triage notes (agree or disagree)? Why? @ -[I reviewed and agree with nursing and triage notes] Were old charts reviewed (outside hosp., previous admission, EMS record, old EKG, old radiological studies, urgent care reports/EKG's, usp records)? Report findings @ -[No old charts were reviewed] Differential Diagnosis (chest pain, altered mental status, abdominal pain women, abdominal pain men, vaginal bleeding, weakness, fever, dyspnea, syncope, headache, dizziness, GI bleed, back pain, seizure, CVA, palpatations, mental health, musculoskeletal)? @ -Differential Dyspnea: Coronary syndrome, arrhythmia, tamponade, asthma, COPD, pulmonary embolism, pneumonia, pneumothorax, pulmonary effusion, anaphylaxis, diabetic ketoacidosis, flailed chest, pulmonary contusion, diaphragmatic rupture, anemia, neuromuscular, this is not meant to be an all-inclusive list. EKG interpreted by me (3pts min.). @ -Sinus rhythm with possible right ventricular conduction delay. No ST deviation or T wave inversion. Ventricular rate 74 bpm, SENIA 161 ms, QRS 85 ms, QTc 398 ms. X-rays interpreted by me (1pt min.). @ -[None done] CT interpreted by me (1pt min.). @ -[None done] U/S interpreted by me (1pt. min.). @ -[None done] What testing was considered but not performed or refused? (CT, X-rays, U/S, labs)? Why? @ -[None] What meds were considered but not given or refused? Why? @ -[None] Did you discuss the management of the patient with other professionals (professionals i.e. , PA, INTERACTIVE MEDIA MARKETING SPECIALIST, lab, RT, psych nurse, social economist, steak sauce maker, teacher, photographic intelligence officer, field nurse case manager)? Give summary @ -[No] Was smoking cessation discussed for >3mins.? @ -[No] Was critical care preformed (if so, how long)? @ -[No] Were there social determinants of health that impacted care today? How? (Homelessness, low income, unemployed, alcoholism, drug addiction, transportation, low edu. Level, literacy, decrease access to med. care, detention, rehab)? @ -[No] Was there de-escalation of care discussed even if they declined (Discuss DNR or withdrawal of care, Hospice)? DNR status @ -[No] What co-morbidities impacted this encounter? (DM, HTN, Smoking, COPD, CAD, Cancer, CVA, ARF, Chemo, Hep., AIDS, mental health diagnosis, sleep apnea, morbid obesity)? @ -[None] Was patient admitted / discharged? Hospital course, mention meds given and route, prescriptions, significant lab abnormalities, going to OR and other pertinent info. @ -[hospital course] Undiagnosed new problem with uncertain prognosis? @ -[No] Drug Therapy requiring intensive monitoring for toxicity (Heparin, Nitro, Insulin, Cardizem)? @ -[No] Were any procedures done? @ -[No] Diagnosis/symptom? @ -[default] Acute, or Chronic, or Acute on Chronic? @ -Acute Uncomplicated (without systemic symptoms) or Complicated (systemic symptoms)? @ -Complicated Side effects of treatment? @ -[No] Exacerbation, Progression, or Severe Exacerbation? @ -[No] Poses a threat to life or bodily function? How? (Chest pain, USA, PR, pneumonia, PE, COPD, DKA, ARF, appy, cholecystitis, CVA, Diverticulitis, Homicidal, Suicidal, threat to staff... and all critical care pts) @ -[No] - Lab Data Result diagrams: 03/26/25 11:25 03/26/25 11:25 Lab Results 03/26/25 03/26/25 03/26/25 Range/Units 11:25 11:25 11:25 WBC 7.18 (4.50-10.00) 10*3/uL RBC 4.16 (4.10-5.20) 10*6/uL Hgb 13.0 (12.0-15.0) g/dL Hct 38.5 (37.2-46.3) % MCV 92.5 (80.0-97.0) fL MCH 31.3 (27.0-32.0) pg MCHC 33.8 (32.0-37.0) g/dL Plt Count 282 (140-440) 10*3/uL MPV 8.2 L (9.5-12.2) fL Immature Gran % (Auto) 0.6 % Neutrophils % 50.6 % Lymphocytes % 36.8 % Monocytes % 8.1 % Eosinophils % 2.2 % Basophils % 1.7 % Immature Gran # 0.04 (0.00-0.04) 10*3/uL Neutrophils # 3.64 (1.80-7.70) 10*3/uL Lymphocytes # 2.64 (0.90-5.00) 10*3/uL Monocytes # 0.58 (0.20-1.00) 10*3/uL Eosinophils # 0.16 (0.04-0.35) 10*3/uL Basophils # 0.12 H (0.00-0.10) 10*3/uL PT 10.4 (10.0-12.5) sec INR 0.9 (<1.2) APTT 23.6 (22.0-30.0) sec D-Dimer 0.34 (<0.60) mg/L FEU Sodium 140 (137-145) mmol/L Potassium 5.0 (3.5-5.1) mmol/L Chloride 105 (98-107) mmol/L Carbon Dioxide 27 (22-30) mmol/L Anion Gap 8 mmol/L BUN 18 H (7-17) mg/dL Creatinine 0.80 (0.52-1.04) mg/dL Est GFR (CKD-EPI)AfAm >90 (>60 ml/min/1.73 sqM) Est GFR (CKD-EPI)NonAf 81 (>60 ml/min/1.73 sqM) Glucose 89 (74-99) mg/dL Calcium 9.5 (8.4-10.2) mg/dL Total Bilirubin 0.3 (0.2-1.3) mg/dL AST 26 (14-36) U/L ALT 19 (4-34) U/L Alkaline Phosphatase 107 (38-126) U/L Troponin I (0.000-0.034) ng/mL NT-Pro-B Natriuret Pep 37 pg/mL Total Protein 6.6 (6.3-8.2) g/dL Albumin 4.0 (3.5-5.0) g/dL 03/26/25 Range/Units 11:25 WBC (4.50-10.00) 10*3/uL RBC (4.10-5.20) 10*6/uL Hgb (12.0-15.0) g/dL Hct (37.2-46.3) % MCV (80.0-97.0) fL MCH (27.0-32.0) pg MCHC (32.0-37.0) g/dL Plt Count (140-440) 10*3/uL MPV (9.5-12.2) fL Immature Gran % (Auto) % Neutrophils % % Lymphocytes % % Monocytes % % Eosinophils % % Basophils % % Immature Gran # (0.00-0.04) 10*3/uL Neutrophils # (1.80-7.70) 10*3/uL Lymphocytes # (0.90-5.00) 10*3/uL Monocytes # (0.20-1.00) 10*3/uL Eosinophils # (0.04-0.35) 10*3/uL Basophils # (0.00-0.10) 10*3/uL PT (10.0-12.5) sec INR (<1.2) APTT (22.0-30.0) sec D-Dimer (<0.60) mg/L FEU Sodium (137-145) mmol/L Potassium (3.5-5.1) mmol/L Chloride (98-107) mmol/L Carbon Dioxide (22-30) mmol/L Anion Gap mmol/L BUN (7-17) mg/dL Creatinine (0.52-1.04) mg/dL Est GFR (CKD-EPI)AfAm (>60 ml/min/1.73 sqM) Est GFR (CKD-EPI)NonAf (>60 ml/min/1.73 sqM) Glucose (74-99) mg/dL Calcium (8.4-10.2) mg/dL Total Bilirubin (0.2-1.3) mg/dL AST (14-36) U/L ALT (4-34) U/L Alkaline Phosphatase (38-126) U/L Troponin I <0.012 (0.000-0.034) ng/mL NT-Pro-B Natriuret Pep pg/mL Total Protein (6.3-8.2) g/dL Albumin (3.5-5.0) g/dL Disposition Clinical Impression: Acute chest wall pain Disposition: HOME SELF-CARE Condition: Fair Instructions (If sedation given, give patient instructions): Edema (ED) Additional Instructions: Follow-up with PCP and cardiology regarding fluid retention for further workup and management. Return to ER if experiencing worsening pain and/or difficulty breathing. Is patient prescribed a controlled substance at d/c from ED?: No Referrals: Christy Baum MD [Primary Care Provider] - 1-2 days Gareth Carrillo MD [STAFF PHYSICIAN] - 1-2 days Time of Disposition: 12:46
[2025-03-26 11:34] LABS: Basophils # (A) 0.12 10*3/uL (0.00-0.10); Basophils % (A) 1.7 %; Eosinophils # (A) 0.16 10*3/uL (0.04-0.35); Eosinophils % (A) 2.2 %; HCT 38.5 % (37.2-46.3); HGB 13.0 g/dL (12.0-15.0); Lymphocytes # (A) 2.64 10*3/uL (0.90-5.00); Lymphocytes % (A) 36.8 %; MCH 31.3 pg (27.0-32.0); MCHC 33.8 g/dL (32.0-37.0); MCV 92.5 fL (80.0-97.0); Monocytes # (A) 0.58 10*3/uL (0.20-1.00); Monocytes % (A) 8.1 %; Neutrophils # (A) 3.64 10*3/uL (1.80-7.70); Neutrophils % (A) 50.6 %; Platelet Count 282 10*3/uL (140-440); RBC 4.16 10*6/uL (4.10-5.20); RDW 14.6 % (11.5-14.5); WBC 7.18 10*3/uL (4.50-10.00)
[2025-03-26 11:55] LABS: INR 0.9 (<1.2); Partial Thromboplastin Time 23.6 sec (22.0-30.0); Prothrombin Time 10.4 sec (10.0-12.5)
--- NOTE | 2025-03-26 12:02 | XR ---
EXAMINATION TYPE: XR chest 2V DATE OF EXAM: 03/26/2025 11:55 AM COMPARISON: 09/07/2022 CLINICAL INDICATION: Female, 59 years old with history of SOB, , TECHNIQUE: PA and lateral views FINDINGS: The cardiomediastinal silhouette, aorta, and pulmonary vasculature are within normal limits. Mild hyp erinflation. Lungs and pleural spaces are clear. IMPRESSION: Mild hyperinflation may relate to depth of inspiration or underlying emphysema. Otherwise, no acute c ardiopulmonary process. [facility], , 03/26/2025 11:59 AM
[2025-03-26 12:17] LABS: ALT 19 U/L (4-34); AST 26 U/L (14-36); African American GFR (CKD) >90 (>60 ml/min/1.73 sqM); Albumin 4.0 g/dL (3.5-5.0); Alkaline Phosphatase 107 U/L (38-126); Anion Gap 8 mmol/L; Blood Urea Nitrogen 18 mg/dL (7-17); Calcium 9.5 mg/dL (8.4-10.2); Carbon Dioxide 27 mmol/L (22-30); Chloride 105 mmol/L (98-107); Glucose 89 mg/dL (74-99); Non-African American GFR(CKD) 81 (>60 ml/min/1.73 sqM); Potassium 5.0 mmol/L (3.5-5.1); Sodium 140 mmol/L (137-145); Total Protein 6.6 g/dL (6.3-8.2)
[2025-03-26 12:26] LABS: NT-Pro-B-Type Natriuretic Pept 37 pg/mL
[2025-03-26 13:04] VITALS: BP 129/86; PULSE 72
== END 2025-03-26 13:04 | disposition home or self-care (01) ==
LOC: EC 10:19
DX: R07.89 Other chest pain (principal); Z87.891 Personal history of nicotine dependence; Z88.5 Allergy status to narcotic agent; Z88.6 Allergy status to analgesic agent; Z91.040 Latex allergy status; Z91.048 Other nonmedicinal substance allergy status; Z91.012 Allergy to eggs; Z88.2 Allergy status to sulfonamides; Z91.018 Allergy to other foods
CPT/HCPCS: 36415; 71046; 80053; 83880; 84484; 85025; 85379; 85610; 85730; 99285

== ENCOUNTER → 2025-03-28 | Outpatient (CLI) | payer MEDICARE, OTHER ==
--- NOTE | 2025-03-30 15:04 | US ---
EXAMINATION TYPE: US pelvic complete DATE OF EXAM: 03/28/2025 COMPARISON: CT 2024 CLINICAL INDICATION: Female, 59 years old with history of N83.202 LT OVARIAN CYST; Seen on recent CT TECHNIQUE: Transabdominal (TA). FINDINGS: Date of LMP: 20+ years ago EXAM MEASUREMENTS: Left Ovary: 3.1 x 2.2 x 3.2 cm 1. Uterus: surgically absent 2. Endometrium: surgically absent 3. Right Ovary: surgically absent 4. Left Ovary: 1.8 x 1.9 x 1.9cm cyst with internal echoes representing artifact or debris. No convi ncing internal soft tissue or septation or complexity is seen. 5. Bilateral Adnexa: wnl 6. Posterior cul-de-sac: wnl IMPRESSION: 1. Status post hysterectomy and right salpingo-oophorectomy. 2. Left ovary contains a 1.9 cm lesion within, suspected small cyst. O-RADS 2. A 12 month follow-up ultrasound can be performed. [facility], , 03/30/2025 3:02 PM
== END | disposition home or self-care (01) ==
LOC: RADUSWWP 09:21
PROVIDERS: ATTEND Family Medicine
DX: N83.202 Unspecified ovarian cyst, left side (principal); Z90.721 Acquired absence of ovaries, unilateral
CPT/HCPCS: 76856